=== PATIENT | female | born 1960 | race Caucasian/White ===

== ENCOUNTER 2020-07-25 18:34 | Emergency (ER) | payer OTHER, SELFPAY ==
[2020-07-25 18:42] VITALS: BP 153/64; PULSE 88; RESP 18; TEMP 37.6; O2SAT 98
[2020-07-25 18:47] VITALS: BP 144/79; BP 153/64; PULSE 90; PULSE 94; TEMP 37.6; O2SAT 100; O2SAT 98; BMI 32.4
--- NOTE | 2020-07-25 20:12 | ED.SEIZURE ---
HPI - Seizure General Chief Complaint: Seizure Stated Complaint: seizure Time Seen by Provider: 07/25/20 20:00 Source: patient, EMS and RN notes reviewed Mode of arrival: EMS Limitations: no limitations History of Present Illness HPI Narrative: 59 years old female known history of epilepsy taken Depakote/Tegretol for seizure, patient is a resident of a intermediate residential institution, presented with 3 mini seizure at the intermediate, staff noted that the patient closed her eyes and was not responding to the staff for short time, no reported postictal time, patient was sent for further evaluation. In the emergency room patient reported that she has been tired, the remember having seizure, patient declined any headache or fever or chest pain or abdominal pain. Patient is acting normally in the emergency department. Patient documented increased urinary frequency with no dysuria or fever or chills. Seizure History: Yes Place: intermediate Related Data Previous Rx's Medication Instructions Recorded levofloxacin 250 mg PO DAILY #7 tab 07/25/20 Allergies Allergy/AdvReac Type Severity Reaction Status Date / Time Penicillins Allergy Unknown Verified 07/25/20 19:53 Review of Systems Review of Systems: All other systems are reviewed and are negative Constitutional: Reports as per HPI and Reports no additional constitutional complaints Eyes: Reports as per HPI and Reports no additional eye complaints Reports system reviewed and no additional complaints, except as documented Cardiovascular: Reports as per HPI and Reports no additional cardiovascular complaints Respiratory: Reports as per HPI and Reports no additional respiratory complaints Gastrointestinal: Reports as per HPI and Reports no additional gastrointestinal complaints Genitourinary: Reports no additional female genitourinary complaints Musculoskeletal: Reports no additional musculoskeletal complaints Skin/Breast: Reports system reviewed and no additional complaints, except as docu Psychiatric: Reports no additional psychiatric complaints Endocrine: Reports no additional endocrine complaints Hematologic/Lymphatic: Reports no additional hematologic/lymphatic complaints Allergic/Immunologic: Reports no additional allergic/immunologic complaints Reports system reviewed and no additional complaints, except as documented and Reports Abnormal speech present [facility] Past Medical History Medical History Epilepsy HTN (hypertension) Schizoaffective disorder, depressive type Social History Social History Alcohol intake: never Smoking Status: Never smoker Use of substances other than those prescribed or required for medical reasons: No Advance Directives: No Advance Directives Information Provided: Yes Patient : No Physical Exam Vital Signs: Vital Signs: Last Vital Signs Temp 99.4 F 07/25/20 21:08 Pulse 83 07/25/20 21:08 Resp 18 07/25/20 21:08 BP 133/55 L 07/25/20 21:08 Pulse Ox 100 07/25/20 21:08 Body Mass Index 32.4 Vital signs have been reviewed as appeared to be correct. Blood pressure normal. Heart rate normal. Respiration rate normal. Temperature normal. Oxygen saturation normal. Appearance: Alert. Oriented X3. No acute distress. Head: Normal external exam. Normocephalic. Atraumatic. No Mukherjee signs noted. No raccoon eyes noted Eyes: PERRLA. EOMI. Conjunctiva and sclera normal. Eyelids normal. ENT: TM's Normal. Pharynx normal. Uvula midline. Moist mucous membranes. No trismus noted. No drooling noted. No muffled voice noted. Neck: Normal inspection. Neck supple. FROM. No adenopathy. Thyroid Normal. No meningeal signs. No neck mass noted. CVS: Normal heart rate and rhythm. Heart sound normal. No murmurs noted. Pulses normal throughout. Respiratory: No respiratory distress. Painless inspiration. Breath sounds normal. No wheezes/rales/rhonchi noted. Chest nontender. No accessory muscle usage noted or decreased air movement noted. Abdomen: Soft and nontender. Bowel sounds normal in all 4 quadrants. No distention noted. No organomegaly noted. No visible injury noted. Back: No CVA tenderness. Full range of motion noted. Skin: Skin warm and dry. Normal skin color. Normal skin turgor. No rashes/lesions/lacerations noted. Extremities: No lower extremity edema. Extremities exhibit normal range of motion. Extremities nontender. Neuro: Oriented X 3. No motor deficit. No sensory deficit. Reflexes normal. Course Course Course Narrative: Assessment and plan. 59 years old female came in after witnesses having seizure, patient was observed in the emergency department for couple hours no seizure activity, labs are unremarkable except for low level of Tegretol, patient was loaded with 800 mg p.o. patient to go back to the intermediate resume her medication. Patient reportedly had urinary frequency with +3 leuk esterase in the UA will treat with Ceftin. MDM - Seizure Lab Data Attestation: I reviewed the patient's lab results. Result diagrams: 07/25/20 20:18 07/25/20 20:18 Labs: Lab Results 07/25/20 07/25/20 07/25/20 Range/Units 20:18 20:18 20:18 WBC 11.4 H (4.8-10.8) X10*3/uL RBC 3.89 L (4.20-5.50) X10*6/uL Hgb 12.3 (12.0-16.0) g/dl Hct 37.4 (37-47) % MCV 96.1 (80-98) fL MCH 31.6 (27.0-33.0) pg MCHC 32.9 (31.0-35.0) g/dl RDW 12.6 (11.0-16.0) % Plt Count 221 (160-400) X10*3/uL MPV 10.7 (9.4-12.3) fL Immature Gran % (Auto) 0.3 (0.0-0.4) % Neut % (Auto) 71.8 (45-73) % Lymph % (Auto) 20.5 (20-40) % [place] % (Auto) 6.5 (2-11) % Eos % (Auto) 0.7 (0-4) % Baso % (Auto) 0.2 (0-2) % Lymph # (Auto) 2.3 (1.2-4.9) X10*3/uL [place] # (Auto) 0.7 (0.1-1.2) X10*3/uL Eos # (Auto) 0.1 (0.0-0.4) X10*3/uL Baso # (Auto) 0.0 (0.0-0.2) X10*3/uL Abs Immat Gran (auto) 0.03 (0.00-0.03) X10*3/uL Absolute Neuts (auto) 8.2 (2.0-8.3) X10*3/uL Absolute Nucleated RBC 0.000 (0.0-0.012) X10*3/uL Nucleated RBC % (auto) 0.0 (0.0-0.2) /100WBC Sodium 140 (135-145) mmol/L Potassium 3.8 (3.3-5.1) mmol/L Chloride 108 (96-108) mmol/L Carbon Dioxide 20 L (22-29) mmol/L Anion Gap 16 (12-20) BUN 13 (9-16) mg/dL Creatinine 0.74 (0.5-1.4) mg/dL Estim Creat Clear Calc 93.1 Estimated GFR > 60 Random Glucose 90 (60-115) mg/dL Calcium 9.5 (8.4-10.2) mg/dL Total Bilirubin 0.3 (0.0-1.0) mg/dL Direct Bilirubin < 0.2 (0.0-0.5) mg/dL AST 18 (5-31) U/L ALT 11 (0-31) U/L Alkaline Phosphatase 163 H (39-117) U/L Total Protein 8.2 H (6.5-8.0) g/dL Albumin 4.5 (3.5-5.0) g/dL Lipase 33 (8-78) U/L Urine Color Urine Appearance Urine pH (5.0-8.0) Ur Specific [place] (1.005-1.025) Urine Protein (NEG-TRACE) MG/DL Urine Glucose (UA) (NEG) MG/DL Urine Ketones (NEG) MG/DL Urine Blood (NEG) Urine Nitrite (NEG) Ur Leukocyte Esterase (NEG) Urine RBC (0) /HPF Urine WBC (0-4) /HPF Ur Squamous Epith Cells /LPF Urine Bacteria /LPF Valproic Acid 98.9 (50.0-100.0) mcg/mL Carbamazepine < 2.0 L* (5.0-12.0) mcg/mL /18/ Range/Units 20:18 WBC (4.8-10.8) X10*3/uL RBC (4.20-5.50) X10*6/uL Hgb (12.0-16.0) g/dl Hct (37-47) % MCV (80-98) fL MCH (27.0-33.0) pg MCHC (31.0-35.0) g/dl RDW (11.0-16.0) % Plt Count (160-400) X10*3/uL MPV (9.4-12.3) fL Immature Gran % (Auto) (0.0-0.4) % Neut % (Auto) (45-73) % Lymph % (Auto) (20-40) % [place] % (Auto) (2-11) % Eos % (Auto) (0-4) % Baso % (Auto) (0-2) % Lymph # (Auto) (1.2-4.9) X10*3/uL [place] # (Auto) (0.1-1.2) X10*3/uL Eos # (Auto) (0.0-0.4) X10*3/uL Baso # (Auto) (0.0-0.2) X10*3/uL Abs Immat Gran (auto) (0.00-0.03) X10*3/uL Absolute Neuts (auto) (2.0-8.3) X10*3/uL Absolute Nucleated RBC (0.0-0.012) X10*3/uL Nucleated RBC % (auto) (0.0-0.2) /100WBC Sodium (135-145) mmol/L Potassium (3.3-5.1) mmol/L Chloride (96-108) mmol/L Carbon Dioxide (22-29) mmol/L Anion Gap (12-20) BUN (9-16) mg/dL Creatinine (0.5-1.4) mg/dL Estim Creat Clear Calc Estimated GFR Random Glucose (60-115) mg/dL Calcium (8.4-10.2) mg/dL Total Bilirubin (0.0-1.0) mg/dL Direct Bilirubin (0.0-0.5) mg/dL AST (5-31) U/L ALT (0-31) U/L Alkaline Phosphatase (39-117) U/L Total Protein (6.5-8.0) g/dL Albumin (3.5-5.0) g/dL Lipase (8-78) U/L Urine Color YELLOW Urine Appearance CLEAR Urine pH 7.0 (5.0-8.0) Ur Specific [place] 1.015 (1.005-1.025) Urine Protein NEG (NEG-TRACE) MG/DL Urine Glucose (UA) NEG (NEG) MG/DL Urine Ketones NEG (NEG) MG/DL Urine Blood TRACE (NEG) Urine Nitrite NEG (NEG) Ur Leukocyte Esterase 3+ H (NEG) Urine RBC 0-2 (0) /HPF Urine WBC 1-4 (0-4) /HPF Ur Squamous Epith Cells TRACE /LPF Urine Bacteria 1+ /LPF Valproic Acid (50.0-100.0) mcg/mL Carbamazepine (5.0-12.0) mcg/mL Discharge Plan Discharge Clinical Impression: Epileptic seizure Qualifiers: Epilepsy type: unspecified Intractability: not intractable Status epilepticus: without status epilepticus Qualified Code(s): G40.909 - Epilepsy, unspecified, not intractable, without status epilepticus Urinary tract infection Qualifiers: Urinary tract infection type: acute cystitis Hematuria presence: without hematuria Qualified Code(s): N30.00 - Acute cystitis without hematuria Patient Disposition: Home, Self-Care Instructions: Urinary Tract Infection in Women (ED) Additional Instructions: Resume all your medication as normal. Prescriptions: New levofloxacin 250 mg tablet 250 mg PO DAILY Qty: 7 RF: 0 Referrals: Physician,Unknown [Primary Care Provider] - 2 days
[2020-07-25 20:27] LABS: MANUAL DIFF FLAG NO
[2020-07-25 20:29] LABS: Glucose Urine UA NEG (NEG); Leukocyte Esterase Urine 3+ (NEG); Nitrite Urine NEG (NEG); Specific Gravity - Urine 1.015 (1.005-1.025); Urine Blood TRACE (NEG); Urine Ketones NEG (NEG); Urine Protein NEG (NEG-TRACE)
[2020-07-25 20:32] LABS: Appearance Urine CLEAR; Color Urine YELLOW
[2020-07-25 20:39] LABS: Basophils Percent Auto 0.2 % (0-2); Eosinophils Absolute Auto 0.1 X10*3/uL (0.0-0.4); Eosinophils Percent Auto 0.7 % (0-4); Hematocrit 37.4 % (37-47); Hemoglobin 12.3 g/dl (12.0-16.0); Imm Gran Abs Auto 0.03 X10*3/uL (0.00-0.03); Imm Gran Pct Auto 0.3 % (0.0-0.4); Lymphocytes Absolute Auto 2.3 X10*3/uL (1.2-4.9); Lymphocytes Percent Auto 20.5 % (20-40); Mean Corpuscular HGB Conc 32.9 g/dl (31.0-35.0); Mean Corpuscular Hemoglobin 31.6 pg (27.0-33.0); Mean Corpuscular Volume 96.1 fL (80-98); Mean Platelet Volume 10.7 fL (9.4-12.3); Monocytes Absolute Auto 0.7 X10*3/uL (0.1-1.2); Monocytes Percent Auto 6.5 % (2-11); Neutrophils Absolute Auto 8.2 X10*3/uL (2.0-8.3); Neutrophils Percent Auto 71.8 % (45-73); Platelet Count 221 X10*3/uL (160-400); Red Blood Count 3.89 X10*6/uL (4.20-5.50); Red Cell Distribution Width 12.6 % (11.0-16.0); White Blood Count 11.4 X10*3/uL (4.8-10.8)
[2020-07-25 20:49] LABS: RBC Urine 0-2 /HPF (0); Squamous Epithelial Cell Urine TRACE /LPF
[2020-07-25 20:50] LABS: Alanine Aminotransferase 11 U/L (0-31); Albumin Level 4.5 g/dL (3.5-5.0); Alkaline Phosphatase 163 U/L (39-117); Anion Gap 16 (12-20); Aspartate Amino Transferase 18 U/L (5-31); Bacteria Urine 1+ /LPF; Bilirubin Direct < 0.2 mg/dL (0.0-0.5); Bilirubin Total 0.3 mg/dL (0.0-1.0); Blood Urea Nitrogen 13 mg/dL (9-16); Calcium 9.5 mg/dL (8.4-10.2); Carbon Dioxide 20 mmol/L (22-29); Chloride 108 mmol/L (96-108); Creatinine Clr Calc Pharmacy 93.1; Estimated Glomerular Filt Rate > 60; Glucose Random 90 mg/dL (60-115); Lipase 33 U/L (8-78); Potassium 3.8 mmol/L (3.3-5.1); Sodium 140 mmol/L (135-145); Total Protein 8.2 g/dL (6.5-8.0)
[2020-07-25 21:08] VITALS: BP 133/55; PULSE 83; RESP 18; TEMP 37.4; O2SAT 100
[2020-07-25 21:13] LABS: Carbamazepine Tegretol < 2.0 mcg/mL (5.0-12.0); Valproate 98.9 mcg/mL (50.0-100.0)
[2020-07-25 22:26] VITALS: BP 125/56; PULSE 79; RESP 18; TEMP 37.2; O2SAT 100
== END 2020-07-25 22:58 | disposition home or self-care (01) ==
PROVIDERS: Emergency Provider Emergency Medicine
DX: G40.909 Epilepsy, unspecified, not intractable, without status epilepticus (principal); N30.00 Acute cystitis without hematuria; I10 Essential (primary) hypertension; F25.0 Schizoaffective disorder, bipolar type
CPT/HCPCS: 36415; 80048; 80076; 80156; 80164; 81001; 83690; 85025; 99283; 99284

== ENCOUNTER 2020-08-24 21:12 | Emergency (ER) | payer OTHER, SELFPAY ==
[2020-08-24 21:17] VITALS: BP 134/70; PULSE 100
[2020-08-24 21:22] VITALS: BP 157/89; PULSE 113; RESP 18; TEMP 37.3; O2SAT 100; BMI 31.8
[2020-08-24 21:32] LABS: Glucose, Whole Blood 86 mg/dL (60-115)
[2020-08-24 21:38] LABS: MANUAL DIFF FLAG NO
[2020-08-24 21:40] LABS: Basophils Percent Auto 0.3 % (0-2); Eosinophils Absolute Auto 0.1 X10*3/uL (0.0-0.4); Eosinophils Percent Auto 1.2 % (0-4); Hematocrit 39.9 % (37-47); Hemoglobin 13.3 g/dl (12.0-16.0); Imm Gran Abs Auto 0.03 X10*3/uL (0.00-0.03); Imm Gran Pct Auto 0.3 % (0.0-0.4); Lymphocytes Absolute Auto 2.5 X10*3/uL (1.2-4.9); Lymphocytes Percent Auto 26.1 % (20-40); Mean Corpuscular HGB Conc 33.3 g/dl (31.0-35.0); Mean Corpuscular Hemoglobin 31.4 pg (27.0-33.0); Mean Corpuscular Volume 94.3 fL (80-98); Mean Platelet Volume 11.2 fL (9.4-12.3); Monocytes Absolute Auto 0.7 X10*3/uL (0.1-1.2); Monocytes Percent Auto 7.8 % (2-11); Neutrophils Absolute Auto 6.1 X10*3/uL (2.0-8.3); Neutrophils Percent Auto 64.3 % (45-73); Platelet Count 196 X10*3/uL (160-400); Red Blood Count 4.23 X10*6/uL (4.20-5.50); Red Cell Distribution Width 11.9 % (11.0-16.0); White Blood Count 9.5 X10*3/uL (4.8-10.8)
--- NOTE | 2020-08-24 22:02 | ED_ITS ---
HPI - Seizure General Chief Complaint: Seizure Stated Complaint: seizures Time Seen by Provider: 08/24/20 21:21 Source: patient and other Mode of arrival: EMS History of Present Illness HPI Narrative: 59-year-old female who is a poor historian and arrives via EMS after they were called by staff at the SNF. Staff reports increased seizure activity since discontinuation of seizure medication. No further information is available at this time and will evaluate for which anti seizure medication was discontinued and by whom. Seizure History: Yes Place: Home Related Data Previous Rx's Medication Instructions Recorded levofloxacin 250 mg PO DAILY #7 tab 07/25/20 cefdinir 300 mg PO BID 5 Days #10 cap 08/25/20 Allergies Allergy/AdvReac Type Severity Reaction Status Date / Time Penicillins Allergy Unknown Verified 07/25/20 19:53 Review of Systems Review of Systems: Yes Unobtainable due to mental status PMFSH Past Medical History Source: nursing notes reviewed Medical History Epilepsy HTN (hypertension) Schizoaffective disorder, depressive type Social History Social History Alcohol intake: never Patient Tobacco Use Status: Tobacco use Unknown Use of substances other than those prescribed or required for medical reasons: Unknown Any prior treatment program specific to substance use: No Advance Directives: No Advance Directives Information Provided: Yes Patient : No Physical Exam Vital Signs: Vital Signs: Last Vital Signs Temp 99.2 F 08/24/20 21: Pulse 93 08/25/20 00:00 Resp 18 08/25/20 00:00 BP 157/89 H 08/24/20 21:22 Pulse Ox 100 08/25/20 00:00 Body Mass Index 31.8 VITAL SIGNS: Reviewed. GENERAL: Well developed, well nourished, in no acute distress. HEAD: Normocephalic/atraumatic, EYES: PERRLA, EOMI EARS: Ext canals without abnormality OROPHARYNX: no oral lesions noted, posterior pharynx clear, and no intraoral injury noted NECK: Supple, no adenopathy LUNGS: Normal breath sounds. No adventitious sounds or accessory muscle use. SpO2<100> CARDIOVASCULAR: Regular rate and rhythm without noted murmurs, no JVD or lower extremity edema. ABDOMEN: Soft, non-tender, non-distended with bowel sounds. MUSCULOSKELETAL: No tenderness, deformities, or effusions noted on gross inspection. EXTREMITIES: No cyanosis, clubbing or edema. SKIN: Inspection of the skin reveals no rashes NEUROLOGIC: Alert, but appears somewhat postictal and oriented x 4. Strength and sensation to light touch were grossly intact x 4. Course Course Course Narrative: 59-year-old female with history and clinical presentation most consistent with seizure, will evaluate for etiologies of onset as well as obtaining collateral information. Review of all investigations only significant for evidence of UTI for which patient will have a prescription sent to the sniff to treat. Depakote levels are returned at 52.5 and patient was provided with 500 mg 1 time dose as recommended by [facility]. Otherwise, patient is stable for transfer back to the SNF with resumption of her epilepsy medication. Reevaluation(s) Reevaluation #1: I discussed the case with from [facility] who is on-call for Dr. Hull the patient's current neurologist. He recommends obtaining a Depakote level and giving the patient a 1 time Depakote 500 mg oral dose, and agrees with the current plan for transfer back to the facility as long as there are no acute findings. Time: 23:30 MDM - Seizure Lab Data Result diagrams: 08/24/20 21:35 08/24/20 22:48 Labs: Lab Results 08/24/20 08/24/20 08/24/20 Range/Units 21:24 21:35 22:47 WBC 9.5 (4.8-10.8) X10*3/uL RBC 4.23 (4.20-5.50) X10*6/uL Hgb 13.3 (12.0-16.0) g/dl Hct 39.9 (37-47) % MCV 94.3 (80-98) fL MCH 31.4 (27.0-33.0) pg MCHC 33.3 (31.0-35.0) g/dl RDW 11.9 (11.0-16.0) % Plt Count 196 (160-400) X10*3/uL MPV 11.2 (9.4-12.3) fL Immature Gran % (Auto) 0.3 (0.0-0.4) % Neut % (Auto) 64.3 (45-73) % Lymph % (Auto) 26.1 (20-40) % [place] % (Auto) 7.8 (2-11) % Eos % (Auto) 1.2 (0-4) % Baso % (Auto) 0.3 (0-2) % Lymph # (Auto) 2.5 (1.2-4.9) X10*3/uL [place] # (Auto) 0.7 (0.1-1.2) X10*3/uL Eos # (Auto) 0.1 (0.0-0.4) X10*3/uL Baso # (Auto) 0.0 (0.0-0.2) X10*3/uL Abs Immat Gran (auto) 0.03 (0.00-0.03) X10*3/uL Absolute Neuts (auto) 6.1 (2.0-8.3) X10*3/uL Absolute Nucleated RBC 0.000 (0.0-0.012) X10*3/uL Nucleated RBC % (auto) 0.0 (0.0-0.2) /100WBC Sodium (135-145) mmol/L Potassium (3.3-5.1) mmol/L Chloride (96-108) mmol/L Carbon Dioxide (22-29) mmol/L Anion Gap (12-20) BUN (9-16) mg/dL Creatinine (0.5-1.4) mg/dL Estim Creat Clear Calc Estimated GFR POC Glucose 86 (60-115) mg/dL Random Glucose (60-115) mg/dL Calcium (8.4-10.2) mg/dL Magnesium (1.6-2.6) mg/dL Total Bilirubin (0.0-1.0) mg/dL AST (5-31) U/L ALT (0-31) U/L Alkaline Phosphatase (39-117) U/L Total Protein (6.5-8.0) g/dL Albumin (3.5-5.0) g/dL Lipase (8-78) U/L Urine Color STRAW Urine Appearance CLEAR Urine pH 7.0 (5.0-8.0) Ur Specific [place] 1.010 (1.005-1.025) Urine Protein NEG (NEG-TRACE) MG/DL Urine Glucose (UA) NEG (NEG) MG/DL Urine Ketones NEG (NEG) MG/DL Urine Blood NEG (NEG) Urine Nitrite NEG (NEG) Ur Leukocyte Esterase 1+ H (NEG) Urine RBC 0-2 (0) /HPF Urine WBC 1-4 (0-4) /HPF Ur Squamous Epith Cells TRACE /LPF Urine Bacteria NONE /LPF Urine Opiates Screen (Not Detect) Ur Barbiturates Screen (Not Detect) Valproic Acid (50.0-100.0) mcg/mL Ur Phencyclidine Scrn (Not Detect) Ur Amphetamines Screen (Not Detect) U Benzodiazepines Scrn (Not Detect) Urine Cocaine Screen (Not Detect) U Marijuana (THC) Screen (Not Detect) Ethyl Alcohol mg/dL 08/24/20 08/24/20 08/24/20 Range/Units 22:47 22:48 22:48 WBC (4.8-10.8) X10*3/uL RBC (4.20-5.50) X10*6/uL Hgb (12.0-16.0) g/dl Hct (37-47) % MCV (80-98) fL MCH (27.0-33.0) pg MCHC (31.0-35.0) g/dl RDW (11.0-16.0) % Plt Count (160-400) X10*3/uL MPV (9.4-12.3) fL Immature Gran % (Auto) (0.0-0.4) % Neut % (Auto) (45-73) % Lymph % (Auto) (20-40) % [place] % (Auto) (2-11) % Eos % (Auto) (0-4) % Baso % (Auto) (0-2) % Lymph # (Auto) (1.2-4.9) X10*3/uL [place] # (Auto) (0.1-1.2) X10*3/uL Eos # (Auto) (0.0-0.4) X10*3/uL Baso # (Auto) (0.0-0.2) X10*3/uL Abs Immat Gran (auto) (0.00-0.03) X10*3/uL Absolute Neuts (auto) (2.0-8.3) X10*3/uL Absolute Nucleated RBC (0.0-0.012) X10*3/uL Nucleated RBC % (auto) (0.0-0.2) /100WBC Sodium 142 (135-145) mmol/L Potassium 4.3 (3.3-5.1) mmol/L Chloride 109 H (96-108) mmol/L Carbon Dioxide 21 L (22-29) mmol/L Anion Gap 16 (12-20) BUN 9 (9-16) mg/dL Creatinine 0.71 (0.5-1.4) mg/dL Estim Creat Clear Calc 86.3 Estimated GFR > 60 POC Glucose (60-115) mg/dL Random Glucose 106 (60-115) mg/dL Calcium 9.7 (8.4-10.2) mg/dL Magnesium 1.9 (1.6-2.6) mg/dL Total Bilirubin 0.3 (0.0-1.0) mg/dL AST 14 (5-31) U/L ALT 6 (0-31) U/L Alkaline Phosphatase 149 H (39-117) U/L Total Protein 8.1 H (6.5-8.0) g/dL Albumin 4.4 (3.5-5.0) g/dL Lipase 33 (8-78) U/L Urine Color Urine Appearance Urine pH (5.0-8.0) Ur Specific [place] (1.005-1.025) Urine Protein (NEG-TRACE) MG/DL Urine Glucose (UA) (NEG) MG/DL Urine Ketones (NEG) MG/DL Urine Blood (NEG) Urine Nitrite (NEG) Ur Leukocyte Esterase (NEG) Urine RBC (0) /HPF Urine WBC (0-4) /HPF Ur Squamous Epith Cells /LPF Urine Bacteria /LPF Urine Opiates Screen Not Detected (Not Detect) Ur Barbiturates Screen Not Detected (Not Detect) Valproic Acid (50.0-100.0) mcg/mL Ur Phencyclidine Scrn Not Detected (Not Detect) Ur Amphetamines Screen Not Detected (Not Detect) U Benzodiazepines Scrn Not Detected (Not Detect) Urine Cocaine Screen Not Detected (Not Detect) U Marijuana (THC) Screen Not Detected (Not Detect) Ethyl Alcohol < 10 mg/dL 08/24/20 Range/Units 22:48 WBC (4.8-10.8) X10*3/uL RBC (4.20-5.50) X10*6/uL Hgb (12.0-16.0) g/dl Hct (37-47) % MCV (80-98) fL MCH (27.0-33.0) pg MCHC (31.0-35.0) g/dl RDW (11.0-16.0) % Plt Count (160-400) X10*3/uL MPV (9.4-12.3) fL Immature Gran % (Auto) (0.0-0.4) % Neut % (Auto) (45-73) % Lymph % (Auto) (20-40) % [place] % (Auto) (2-11) % Eos % (Auto) (0-4) % Baso % (Auto) (0-2) % Lymph # (Auto) (1.2-4.9) X10*3/uL [place] # (Auto) (0.1-1.2) X10*3/uL Eos # (Auto) (0.0-0.4) X10*3/uL Baso # (Auto) (0.0-0.2) X10*3/uL Abs Immat Gran (auto) (0.00-0.03) X10*3/uL Absolute Neuts (auto) (2.0-8.3) X10*3/uL Absolute Nucleated RBC (0.0-0.012) X10*3/uL Nucleated RBC % (auto) (0.0-0.2) /100WBC Sodium (135-145) mmol/L Potassium (3.3-5.1) mmol/L Chloride (96-108) mmol/L Carbon Dioxide (22-29) mmol/L Anion Gap (12-20) BUN (9-16) mg/dL Creatinine (0.5-1.4) mg/dL Estim Creat Clear Calc Estimated GFR POC Glucose (60-115) mg/dL Random Glucose (60-115) mg/dL Calcium (8.4-10.2) mg/dL Magnesium (1.6-2.6) mg/dL Total Bilirubin (0.0-1.0) mg/dL AST (5-31) U/L ALT (0-31) U/L Alkaline Phosphatase (39-117) U/L Total Protein (6.5-8.0) g/dL Albumin (3.5-5.0) g/dL Lipase (8-78) U/L Urine Color Urine Appearance Urine pH (5.0-8.0) Ur Specific [place] (1.005-1.025) Urine Protein (NEG-TRACE) MG/DL Urine Glucose (UA) (NEG) MG/DL Urine Ketones (NEG) MG/DL Urine Blood (NEG) Urine Nitrite (NEG) Ur Leukocyte Esterase (NEG) Urine RBC (0) /HPF Urine WBC (0-4) /HPF Ur Squamous Epith Cells /LPF Urine Bacteria /LPF Urine Opiates Screen (Not Detect) Ur Barbiturates Screen (Not Detect) Valproic Acid 52.5 (50.0-100.0) mcg/mL Ur Phencyclidine Scrn (Not Detect) Ur Amphetamines Screen (Not Detect) U Benzodiazepines Scrn (Not Detect) Urine Cocaine Screen (Not Detect) U Marijuana (THC) Screen (Not Detect) Ethyl Alcohol mg/dL Discharge Plan Discharge Clinical Impression: Epileptic seizure, UTI (urinary tract infection) Patient Disposition: er [facility] Instructions: Epilepsy (ED), Urinary Tract Infection in Older Adults (ED) Additional Instructions: All medications should be resumed as per [facility]. Patient will be treated for a UTI. Return to the ER for acute worsening of symptoms. Prescriptions: New cefdinir 300 mg capsule 300 mg PO BID 5 Days Qty: 10 RF: 0 No Action levofloxacin 250 mg tablet 250 mg PO DAILY Qty: 7 RF: 0
--- NOTE | 2020-08-24 22:27 | PC.NURSE ---
CONTACT MADE TO JEFFRY RODRIGUEZ AT [facility]. PER JEFFRY, PT WAS TAKEN OFF CARBAMAZEPINE 200MG BY DR. MONTEIRO AT [facility] AFTER THE FACILITY HAVING DIFFICULTY FILL MEDS AND HAD MISSED MULITPLE DOSESCARBAMAZEPINE AND TOPRAMAX. PROVIDER IS BASED AT [address] [place] [address] AND CONTACT NUMBER IS [phone].
[2020-08-24 23:02] LABS: Glucose Urine UA NEG (NEG); Leukocyte Esterase Urine 1+ (NEG); Nitrite Urine NEG (NEG); UACC Culture Trigger YES; Urine Blood NEG (NEG); Urine Ketones NEG (NEG); Urine Protein NEG (NEG-TRACE)
[2020-08-24 23:03] LABS: Appearance Urine CLEAR; Color Urine STRAW
[2020-08-24 23:16] LABS: Ethanol < 10 mg/dL
[2020-08-24 23:18] LABS: RBC Urine 0-2 /HPF (0); Squamous Epithelial Cell Urine TRACE /LPF
[2020-08-24 23:20] LABS: Alanine Aminotransferase 6 U/L (0-31); Albumin Level 4.4 g/dL (3.5-5.0); Alkaline Phosphatase 149 U/L (39-117); Anion Gap 16 (12-20); Aspartate Amino Transferase 14 U/L (5-31); Bilirubin Total 0.3 mg/dL (0.0-1.0); Blood Urea Nitrogen 9 mg/dL (9-16); Calcium 9.7 mg/dL (8.4-10.2); Carbon Dioxide 21 mmol/L (22-29); Chloride 109 mmol/L (96-108); Creatinine Clr Calc Pharmacy 86.3; Estimated Glomerular Filt Rate > 60; Glucose Random 106 mg/dL (60-115); Lipase 33 U/L (8-78); Magnesium 1.9 mg/dL (1.6-2.6); Potassium 4.3 mmol/L (3.3-5.1); Sodium 142 mmol/L (135-145); Total Protein 8.1 g/dL (6.5-8.0)
[2020-08-24 23:27] LABS: Amphetamine Screen Urine Not Detected (Not Detect); Barbiturates, Urine Not Detected (Not Detect); Benzodiazepines Screen Urine Not Detected (Not Detect); Cannabinoid Screen Urine Not Detected (Not Detect); Cocaine Screen Urine Not Detected (Not Detect); Opiate Screen Urine Not Detected (Not Detect); Phencyclidine Screen Urine Not Detected (Not Detect)
[2020-08-25] VITALS: PULSE 93; RESP 18; O2SAT 100
--- NOTE | 2020-08-25 | PC.NURSE ---
cONTACT MADE TO [facility]- SPOKE TO SHILA THE PHARMACIST REGARDING ADMINSITRATION OF DEPAKOTE WHEN PATIENT TAKES CRUSHED PILLS
[2020-08-25 00:47] LABS: Valproate 52.5 mcg/mL (50.0-100.0)
--- NOTE | 2020-08-25 01:09 | PC.NURSE ---
awaiting rn sewer maintenance supervisor for meds,
--- NOTE | 2020-08-25 01:15 | PC.NURSE ---
Per , covering physician for dr quintana, d/c tigridol, but continue topramax and depikote
[2020-08-25] MEDS: Divalproex Sodium Sprinkles 125 MG CAP.DR.SPR 500 MG PO (01:38)
--- NOTE | 2020-08-25 01:56 | PC.NURSE ---
Md aware of daughter's report of dizziness post medication administration.
== END 2020-08-25 03:30 | disposition skilled nursing facility (03) ==
PROVIDERS: Emergency Provider Student in an Organized Health Care Education/Training Program
DX: G40.909 Epilepsy, unspecified, not intractable, without status epilepticus (principal); N39.0 Urinary tract infection, site not specified; I10 Essential (primary) hypertension
CPT/HCPCS: 36415; 80053; 80164; 80307; 81001; 81003; 82077; 82947; 83690; 83735; 85025; 87086; 99284; 99285

== ENCOUNTER 2020-08-26 17:29 | Emergency (ER) | payer OTHER, SELFPAY ==
--- NOTE | ~2020-08-26 | CT_ITS ---
EXAMINATION: CT HEAD WITHOUT CONTRAST CT CERVICAL SPINE WITHOUT CONTRAST CLINICAL INFORMATION: Fall. COMPARISON: None. TECHNIQUE: Imaging was performed from the skull base to vertex without intravenous administration of contrast. In addition, helical noncontrast CT imaging was acquired through the cervical spine and source images were reviewed along with axial reconstructions and sagittal and coronal MPRs. [This CT examination was performed using dose optimization techniques as appropriate, variously including the following: *Automated exposure control *Adjustment of mA and/or kV according to patient size (this includes techniques or standardized protocols for targeted exams where dose is matched to indication/reason for exam; i.e. extremities or head) *Use of iterative reconstruction technique] DLP: 1280 mGy-cm FINDINGS: HEAD: Small scalp hematoma in the right frontal region. There is no skull fracture. No intracranial mass, hemorrhage, or midline shift is visualized. There is generalized global volume loss. There is moderate prominence of the ventricles and the sulci . There is mild hypodensity of the periventricular white matter due to chronic small vessel ischemic disease. There are vascular calcifications of the internal carotid arteries bilaterally. No extra-axial collections are identified. The paranasal sinuses and mastoid air cells are well aerated. CERVICAL SPINE: There is no evidence of acute cervical spine fracture. Vertebral bodies remain normal in height. Cervical vertebrae have normal alignment. There is multilevel degenerative spondylosis of the cervical spine with disc height narrowing and endplate spurs. No pre- or paravertebral soft tissue abnormality is identified. Limited assessment of the lung apices is unremarkable. CT/CT cervical spine wo con IMPRESSION: 1. No acute intracranial pathology. 2. No CT evidence of acute cervical spine fracture or traumatic subluxation
[2020-08-26 17:36] VITALS: BP 127/80; PULSE 92; O2SAT 98
[2020-08-26 17:41] VITALS: BP 146/63; PULSE 81; RESP 18; TEMP 36.3; O2SAT 100; BMI 30.9
--- NOTE | 2020-08-26 18:06 | ED_ITS ---
HPI - Fall General Chief Complaint: Fall Stated Complaint: FALL IN BR, LUMP ON FOREHEAD Time Seen by Provider: 08/26/20 17:59 Source: EMS and RN notes reviewed Mode of arrival: EMS Limitations: altered mental status History of Present Illness HPI Narrative: Patient has schizophrenia was in the bathroom and fell has small bump on the forehead it was not available patient very agitated when arrived no other injuries patient is ambulatory otherwise Related Data Previous Rx's Medication Instructions Recorded levofloxacin 250 mg PO DAILY #7 tab 07/25/20 cefdinir 300 mg PO BID 5 Days #10 cap 08/25/20 Allergies Allergy/AdvReac Type Severity Reaction Status Date / Time Penicillins Allergy Unknown Verified 07/25/20 19:53 Review of Systems Review of Systems: Yes all other systems are reviewed and are negative [facility] Past Medical History Medical History Epilepsy HTN (hypertension) Schizoaffective disorder, depressive type Social History Social History Alcohol intake: never Patient Tobacco Use Status: Former Tobacco user Use of substances other than those prescribed or required for medical reasons: No Advance Directives: No Advance Directives Information Provided: Yes Physical Exam Vital Signs: Vital Signs: Last Vital Signs Temp 97.4 F 08/26/20 17:41 Pulse 82 08/26/20 19:36 Resp 18 08/26/20 19:36 BP 148/95 H 08/26/20 19:36 Pulse Ox 100 08/26/20 19:36 Body Mass Index 30.9 Appearance: Alert. And awake x2 and ambulatory. No acute distress. Eyes: PERRLA, No Nystagmus HEENT: Pharynx normal. Oral Mucosa moist , soft tissue swelling right forehead Neck: Normal inspection. Neck supple. CVS: Normal heart rate and rhythm. Pulses normal. Respiratory: No respiratory distress. Equal air entry bilateral, no wheezing/rales/rhonchi Abdomen: Soft and nontender. Bowel sounds are present, no mass palpable, no CVA tenderness Skin: Skin warm and dry. Normal skin color. Normal skin turgor. Extremities: No lower extremity edema. No calf tenderness Neuro: Oriented X 2. No motor deficit. No sensory deficit ambulating steady gait MDM - Fall MDM Narrative Medical decision making narrative: Patient's CT scan head and C-spine negative ambulating steady gait unstable mood will discharge patient senior care Lab Data Attestation: I reviewed the patient's lab results. Labs: Lab Results 08/26/20 Range/Units 19:18 Urine Color YELLOW Urine Appearance CLEAR Urine pH 6.5 (5.0-8.0) Ur Specific [place] 1.010 (1.005-1.025) Urine Protein NEG (NEG-TRACE) MG/DL Urine Glucose (UA) NEG (NEG) MG/DL Urine Ketones 5 (NEG) MG/DL Urine Blood NEG (NEG) Urine Nitrite NEG (NEG) Ur Leukocyte Esterase TRACE H (NEG) Urine RBC 0 (0) /HPF Urine WBC 0-2 (0-4) /HPF Ur Squamous Epith Cells TRACE /LPF Urine Bacteria NONE /LPF Discharge Plan Discharge Clinical Impression: Fall Patient Disposition: Xfer LT Instructions: Fall Prevention (ED) Additional Instructions: Your CT scan of the head and cervical spine is negative for any fracture urine is also negative for UTI Keep precautions while walking use walker follow-up with your therapist/PCP Prescriptions: No Action cefdinir 300 mg capsule 300 mg PO BID 5 Days Qty: 10 RF: 0 levofloxacin 250 mg tablet 250 mg PO DAILY Qty: 7 RF: 0 Interventions: ED Discharge Assessment Last Done: 08/26/20 22:49 Discharge Date/Time: 08/26/20 22:51
[2020-08-26 19:28] LABS: Glucose Urine UA NEG (NEG); Leukocyte Esterase Urine TRACE (NEG); Nitrite Urine NEG (NEG); PH 6.5 (5.0-8.0); UACC Culture Trigger YES; Urine Blood NEG (NEG); Urine Ketones 5 MG/DL (NEG); Urine Protein NEG (NEG-TRACE)
[2020-08-26 19:32] LABS: Appearance Urine CLEAR; Color Urine YELLOW
[2020-08-26 19:36] VITALS: BP 148/95; PULSE 82; RESP 18; O2SAT 100
[2020-08-26 19:51] LABS: RBC Urine 0 /HPF (0); Squamous Epithelial Cell Urine TRACE /LPF; WBC Urine 0-2 /HPF (0-4)
--- NOTE | 2020-08-26 20:26 | PC.NURSE ---
c-collar removed by provider. pt ambulatory to bathroom with steady gait x2. pt had 2 cups of juice. pt now sleeping on stretcher.
--- NOTE | 2020-08-26 21:11 | PC.NURSE ---
kelly lindsay called for report, awaiting ems transport back.
--- NOTE | 2020-08-26 21:22 | PC.NURSE ---
spoke with rn at [facility], she was concerned about pt's behavior. pt has been yelling out for god and mary ann. pt has been manic in the past when she has had a uti. rn is hoping that a few more doses of her current antibiotic will eliminate the behavior. rn will also contact the facility MD to request prn ativan.
== END 2020-08-26 22:51 ==
PROVIDERS: Emergency Provider Internal Medicine; PCP Internal Medicine
DX: Z04.3 Encounter for examination and observation following other accident (principal); I10 Essential (primary) hypertension; G40.909 Epilepsy, unspecified, not intractable, without status epilepticus; F25.1 Schizoaffective disorder, depressive type; Z91.81 History of falling
CPT/HCPCS: 70450; 72125; 81001; 81003; 99284; 99285

== ENCOUNTER 2020-08-27 10:25 | Inpatient (IN) | payer OTHER, SELFPAY ==
--- NOTE | ~2020-08-27 | XR_ITS ---
EXAMINATION: CHEST CLINICAL INFORMATION: Fall. COMPARISON: None TECHNIQUE: Chest one view. Left humerus 3 views. FINDINGS: Chest: The lungs are well-expanded and clear. The heart size and pulmonary vascularity is normal. No gross bony abnormality seen. Left humerus: There is displaced transverse comminuted fracture left humeral neck extending to the greater tuberosity. There is no dislocation. The AC joint is intact. The soft tissues are normal. XR/XR humerus LT IMPRESSION: Unremarkable chest exam. Continued displaced fracture left humeral neck extending to the greater tuberosity. No dislocation.
--- NOTE | ~2020-08-27 | XR_ITS ---
EXAMINATION: CHEST CLINICAL INFORMATION: Fall. COMPARISON: None TECHNIQUE: Chest one view. Left humerus 3 views. FINDINGS: Chest: The lungs are well-expanded and clear. The heart size and pulmonary vascularity is normal. No gross bony abnormality seen. Left humerus: There is displaced transverse comminuted fracture left humeral neck extending to the greater tuberosity. There is no dislocation. The AC joint is intact. The soft tissues are normal. XR/XR chest 1V IMPRESSION: Unremarkable chest exam. Continued displaced fracture left humeral neck extending to the greater tuberosity. No dislocation.
--- NOTE | ~2020-08-27 | CT_ITS ---
EXAMINATION: CT HEAD W/O IV CONTRAST CT CERVICAL SPINE W/O IV CONTRAST CLINICAL INFORMATION: Altered mental status after fall. COMPARISON: 08/26/2020 TECHNIQUE: Head - Contiguous axial imaging of the head was performed from the skull base to the vertex without the administration of intravenous contrast, and axial images are reconstructed at 2 mm and 5 mm slice thickness. Cervical spine - A volumetric, helical CT acquisition of the cervical spine was obtained without contrast; in addition to the standard set of axial images, multiplanar reformatted images were provided in the coronal and sagittal imaging planes. This CT examination was performed using dose optimization techniques as appropriate, variously including the following: *Automated exposure control *Adjustment of mA and/or kV according to patient size (this includes techniques or standardized protocols for targeted exams where dose is matched to indication/reason for exam; i.e. extremities or head) *Use of iterative reconstruction technique DLP: 1194 mGy-cm (total) FINDINGS: HEAD: No evidence of intracranial hemorrhage, major vascular territory infarction, focal mass effect or midline shift. Garcia to white matter differentiation is preserved. No extra-axial fluid collection. Mild atrophy of brain parenchyma with commensurate prominence of ventricles and sulci; no hydrocephalus. The calvarium is intact and the visualized paranasal sinuses, mastoid air cells and middle ear cavities are clear. The temporomandibular joints are unremarkable. The visualized orbits and globes are intact. Prior right ocular lens extraction/replacement. Again noted is the small right frontal scalp hematoma. CERVICAL SPINE: No acute abnormalities. The craniocervical junction is normal. The occipital condyles, dens and atlantodental articulation are intact. The vertebral body heights and alignment are maintained. No fractures in the anterior or posterior elements. No prevertebral soft tissue swelling. Chronic multilevel degenerative disc space narrowing, vertebral osteophyte formation and uncovertebral joint hypertrophy with varying degrees of multilevel bilateral neural foraminal stenosis. Also, there is multilevel mild central canal stenosis. No spinal hematoma or focal fluid collection in the visualized neck. The examined lung apices are clear. Thyroid gland is normal. CT/CT cervical spine wo con IMPRESSION: * Small right frontal scalp hematoma. No calvarial fracture. * No intracranial hemorrhage or other acute intracranial pathology compared to 08/26/2020. * No fracture or malalignment in the degenerated cervical spine.
--- NOTE | 2020-08-27 10:28 | ED_ITS ---
HPI - Altered Mental Status General Chief Complaint: Fall Stated Complaint: FALL W/AMS Time Seen by Provider: 08/27/20 10:26 Source: patient, EMS and old records reviewed Mode of arrival: EMS Limitations: altered mental status History of Present Illness HPI narrative: from facility hx of seizures on depakote and hx of schizophrenia seen yesterday for fall comes back after being found on the ground again patient tells me she remembers being dizzy then fell and was on the ground for 1 hour, c/o pain in L arm on depakote and topamax looks like they stopped carbamezapine on 08/22 complaint: confusion Onset (ago): hour(s) Timing confirmed by: caregiver Severity: moderate Consistency of symptoms: constant Context: history of similar presentation, trauma and seizure disorder Associated symptoms: other (L arm pain) Treatments prior to arrival: spinal immobilization Related Data Previous Rx's Medication Instructions Recorded levofloxacin 250 mg PO DAILY #7 tab 07/25/20 cefdinir 300 mg PO BID 5 Days #10 cap 08/25/20 Allergies Allergy/AdvReac Type Severity Reaction Status Date / Time Penicillins Allergy Unknown Verified 07/25/20 19:53 Review of Systems Review of Systems: ROS unable to be obtained due to altered mental status ON LICENSE OF [facility] Past Medical History Attestation statement: The following information was validated with the patient. Medical History Epilepsy HTN (hypertension) Schizoaffective disorder, depressive type Social History Social History Alcohol intake: never Patient Tobacco Use Status: Former Tobacco user Use of substances other than those prescribed or required for medical reasons: No Advance Directives: No Advance Directives Information Provided: No Physical Exam Vital Signs: Vital Signs: Last Vital Signs Temp 98.6 F 08/27/20 10:36 Pulse 85 08/27/20 10:36 Resp 14 08/27/20 10:36 BP 127/51 L 08/27/20 10:36 Pulse Ox 99 08/27/20 10:36 Body Mass Index 30.2 Appearance: Alert. Oriented X2. No acute distress. Eyes: Pupils equal, round and reactive to light. ENT: Pharynx normal. abrasions to forehead superficial Neck: Normal inspection. Neck supple. c collar in place CVS: Normal heart rate and rhythm. Pulses normal. Respiratory: No respiratory distress. Breath sounds normal. Abdomen: Soft and nontender. Skin: Skin warm and dry. Normal skin color. Normal skin turgor. Extremities: No lower extremity edema. No calf ttp no pain with ROM of bilat eral LE or RUPaulina has pain at L humerus and L shoulder NV intact Neuro: Oriented X 2. No motor deficit. No sensory deficit. Course Course Course Narrative: I believe given the abrasions which looks as if her face is scraping on the floor and left humerus fracture concerning that the patient is actually having breakthrough seizures will admit to the hospitalist for further workup and management of AEDs Procedures Orthopedic Splinting/Casting Injury #1: Side: left Upper Extremity Injury Location: upper arm Upper Extremity Immobilizer: sling/shoulder immobilizer MDM - Altered Mental Status MDM Narrative Medical decision making narrative: 59 yo female with hx of seizures on depakote schizophrenia was seen yesterday for falls had negative head and cervical spine CT at that time - comes in again c/o dizziness then was found confused on the floor by staff likely seizure given the history no GTC reported, she has abras ions on forehead and pain in L arm NV intact - at this time repeat CT head/cspine, labs, xrays of LUE - possible admission given repeat falls and concerns that she is having breakthrough seizure - 3rd visit this month. Lab Data Result diagrams: 08/27/20 11:14 08/27/20 11:14 Labs: Lab Results 08/27/20 08/27/20 08/27/20 Range/Units 11:07 11:14 11:14 WBC 9.9 (4.8-10.8) X10*3/uL RBC 4.26 (4.20-5.50) X10*6/uL Hgb 13.5 (12.0-16.0) g/dl Hct 40.4 (37-47) % MCV 94.8 (80-98) fL MCH 31.7 (27.0-33.0) pg MCHC 33.4 (31.0-35.0) g/dl RDW 12.1 (11.0-16.0) % Plt Count 193 (160-400) X10*3/uL MPV 10.8 (9.4-12.3) fL Immature Gran % (Auto) 0.3 (0.0-0.4) % Neut % (Auto) 81.9 H (45-73) % Lymph % (Auto) 11.8 L (20-40) % [place] % (Auto) 5.3 (2-11) % Eos % (Auto) 0.4 (0-4) % Baso % (Auto) 0.3 (0-2) % Lymph # (Auto) 1.2 (1.2-4.9) X10*3/uL [place] # (Auto) 0.5 (0.1-1.2) X10*3/uL Eos # (Auto) 0.0 (0.0-0.4) X10*3/uL Baso # (Auto) 0.0 (0.0-0.2) X10*3/uL Abs Immat Gran (auto) 0.03 (0.00-0.03) X10*3/uL Absolute Neuts (auto) 8.1 (2.0-8.3) X10*3/uL Absolute Nucleated RBC 0.000 (0.0-0.012) X10*3/uL Nucleated RBC % (auto) 0.0 (0.0-0.2) /100WBC PT (10.8-13.0) SEC INR (0.9-1.1) APTT (24.1-38.0) SEC Sodium 141 (135-145) mmol/L Potassium 3.9 (3.3-5.1) mmol/L Chloride 109 H (96-108) mmol/L Carbon Dioxide 20 L (22-29) mmol/L Anion Gap 16 (12-20) BUN 8 L (9-16) mg/dL Creatinine 0.75 (0.5-1.4) mg/dL Estim Creat Clear Calc 85.6 Estimated GFR > 60 Random Glucose 122 H (60-115) mg/dL Calcium 9.5 (8.4-10.2) mg/dL Magnesium 2.0 (1.6-2.6) mg/dL Total Bilirubin 0.2 (0.0-1.0) mg/dL Direct Bilirubin < 0.2 (0.0-0.5) mg/dL AST 15 (5-31) U/L ALT 8 (0-31) U/L Alkaline Phosphatase 142 H (39-117) U/L Total Creatine Kinase 312 H (26-140) U/L Troponin I High Sens (<3.5-17.0) ng/L Total Protein 8.1 H (6.5-8.0) g/dL Albumin 4.6 (3.5-5.0) g/dL Lipase 21 (8-78) U/L Valproic Acid 114.8 H* (50.0-100.0) mcg/mL COVID-19 (LEONIDAS) Negative (Negative) COVID-19 Clin Com See Note 08/27/20 08/27/20 Range/Units 11:14 11:21 WBC (4.8-10.8) X10*3/uL RBC (4.20-5.50) X10*6/uL Hgb (12.0-16.0) g/dl Hct (37-47) % MCV (80-98) fL MCH (27.0-33.0) pg MCHC (31.0-35.0) g/dl RDW (11.0-16.0) % Plt Count (160-400) X10*3/uL MPV (9.4-12.3) fL Immature Gran % (Auto) (0.0-0.4) % Neut % (Auto) (45-73) % Lymph % (Auto) (20-40) % [place] % (Auto) (2-11) % Eos % (Auto) (0-4) % Baso % (Auto) (0-2) % Lymph # (Auto) (1.2-4.9) X10*3/uL [place] # (Auto) (0.1-1.2) X10*3/uL Eos # (Auto) (0.0-0.4) X10*3/uL Baso # (Auto) (0.0-0.2) X10*3/uL Abs Immat Gran (auto) (0.00-0.03) X10*3/uL Absolute Neuts (auto) (2.0-8.3) X10*3/uL Absolute Nucleated RBC (0.0-0.012) X10*3/uL Nucleated RBC % (auto) (0.0-0.2) /100WBC PT 13.3 H (10.8-13.0) SEC INR 1.1 (0.9-1.1) APTT 35.3 (24.1-38.0) SEC Sodium (135-145) mmol/L Potassium (3.3-5.1) mmol/L Chloride (96-108) mmol/L Carbon Dioxide (22-29) mmol/L Anion Gap (12-20) BUN (9-16) mg/dL Creatinine (0.5-1.4) mg/dL Estim Creat Clear Calc Estimated GFR Random Glucose (60-115) mg/dL Calcium (8.4-10.2) mg/dL Magnesium (1.6-2.6) mg/dL Total Bilirubin (0.0-1.0) mg/dL Direct Bilirubin (0.0-0.5) mg/dL AST (5-31) U/L ALT (0-31) U/L Alkaline Phosphatase (39-117) U/L Total Creatine Kinase (26-140) U/L Troponin I High Sens < 3.5 (<3.5-17.0) ng/L Total Protein (6.5-8.0) g/dL Albumin (3.5-5.0) g/dL Lipase (8-78) U/L Valproic Acid (50.0-100.0) mcg/mL COVID-19 (LEONIDAS) (Negative) COVID-19 Clin Com ECG Data ECG #1: Attestation: I personally reviewed and interpreted this ECG as follows: ECG interpretation date: 08/27/20 ECG interpretation time: 10:51 Interpretation: Rate: 94 Rhythm: NSR [place]: normal Normal P waves. Normal PEMA. incomplete RBBB ST T wave : nonspecific, no ANDREA qTC: normal prior studies: no prior The study has been interpreted contemporaneously by me. . Discharge Plan Discharge Clinical Impression: Abrasion, Elevated antiepileptic drug level, Fracture, humerus, Seizure disorder Patient Disposition: Admitted As Inpatient
--- NOTE | 2020-08-27 10:34 | ECG_ITS ---
Test Reason : SEIZURE Blood Pressure : / mmHG Vent. Rate : 094 BPM Atrial Rate : 094 BPM P-R Int : 134 ms QRS Dur : 108 ms QT Int : 378 ms P-R-T Axes : 047 030 031 degrees QTc Int : 472 ms Normal sinus rhythm Incomplete right bundle branch block Borderline ECG No previous ECGs available Referred By: Kristina Bowen Electronically Signed By:ELVIA CUBA
[2020-08-27 10:36] VITALS: BP 122/60; BP 127/51; PULSE 85; PULSE 90; RESP 14; TEMP 37; O2SAT 98; O2SAT 99; BMI 30.2
[2020-08-27 11:19] LABS: MANUAL DIFF FLAG NO
[2020-08-27 11:21] LABS: Basophils Percent Auto 0.3 % (0-2); Eosinophils Percent Auto 0.4 % (0-4); Hematocrit 40.4 % (37-47); Hemoglobin 13.5 g/dl (12.0-16.0); Imm Gran Abs Auto 0.03 X10*3/uL (0.00-0.03); Imm Gran Pct Auto 0.3 % (0.0-0.4); Lymphocytes Absolute Auto 1.2 X10*3/uL (1.2-4.9); Lymphocytes Percent Auto 11.8 % (20-40); Mean Corpuscular HGB Conc 33.4 g/dl (31.0-35.0); Mean Corpuscular Hemoglobin 31.7 pg (27.0-33.0); Mean Corpuscular Volume 94.8 fL (80-98); Mean Platelet Volume 10.8 fL (9.4-12.3); Monocytes Absolute Auto 0.5 X10*3/uL (0.1-1.2); Monocytes Percent Auto 5.3 % (2-11); Neutrophils Absolute Auto 8.1 X10*3/uL (2.0-8.3); Neutrophils Percent Auto 81.9 % (45-73); Platelet Count 193 X10*3/uL (160-400); Red Blood Count 4.26 X10*6/uL (4.20-5.50); Red Cell Distribution Width 12.1 % (11.0-16.0); White Blood Count 9.9 X10*3/uL (4.8-10.8)
[2020-08-27 11:26] LABS: COVID-19 Test Negative (Negative)
[2020-08-27 11:38] LABS: INTERNATIONAL NORM RATIO 1.1 (0.9-1.1); Prothrombin Time 13.3 SEC (10.8-13.0)
[2020-08-27 11:41] LABS: Partial Thromboplastin Time 35.3 SEC (24.1-38.0)
[2020-08-27 11:42] LABS: Alanine Aminotransferase 8 U/L (0-31); Albumin Level 4.6 g/dL (3.5-5.0); Alkaline Phosphatase 142 U/L (39-117); Anion Gap 16 (12-20); Aspartate Amino Transferase 15 U/L (5-31); Bilirubin Direct < 0.2 mg/dL (0.0-0.5); Bilirubin Total 0.2 mg/dL (0.0-1.0); Blood Urea Nitrogen 8 mg/dL (9-16); Calcium 9.5 mg/dL (8.4-10.2); Carbon Dioxide 20 mmol/L (22-29); Chloride 109 mmol/L (96-108); Creatinine Clr Calc Pharmacy 85.6; Estimated Glomerular Filt Rate > 60; Glucose Random 122 mg/dL (60-115); Lipase 21 U/L (8-78); Potassium 3.9 mmol/L (3.3-5.1); Sodium 141 mmol/L (135-145); Total Protein 8.1 g/dL (6.5-8.0)
[2020-08-27 11:55] LABS: Valproate 114.8 mcg/mL (50.0-100.0)
[2020-08-27 11:57] LABS: Troponin-I High Sensitivity < 3.5 ng/L (<3.5-17.0)
--- NOTE | 2020-08-27 14:13 | P.HPHOSP_ITS ---
History of Present Illness Date of Service: 08/27/20 <GAYLA Phillips - Last Filed: 08/27/20 14:43> Chief Complaint: Unwitnessed fall <GAYLA Phillips - Last Filed: 08/27/20 14:43> This is a 59-year-old female with history of seizure disorder who was sent from [facility] after an unwitnessed fall. On August 22 she was seen by her primary neurologist at [facility] and at that time her carbamazepine was discontinued. She was seen in the ED August 24 for increasing seizure activity. At that time the covering provider called [facility] Neurology and they recommended to give the patient a 1 time oral dose of Depakote. She was then transferred back to her facility. She was brought back to the emergency department August 26 after unwitnessed fall. At that time patient seemed agitated. Her workup was otherwise unremarkable and she was again sent back to the facility. She returns yet again today after being found on the ground. Patient does not remember what happened but she thinks she may be having seizures. She complained of left arm pain and imaging revealed comminuted displaced fracture of the left humeral neck. Her left arm was placed in a sling. Valproic acid level today 114.8. Brain CT showed small right frontal scalp hematoma no intracranial hemorrhage or other acute pathology. C- spine showed no fracture or malalignment. Given multiple ED visits and recurrent falls there was concern that the patient may actually be having breakthrough seizures. Patient gives a somewhat limited history and says she does't know what happened today. Neurology notes from Dr. Hull at [facility] from August 22 2020 Anastasia was last seen in 2019, missed 2 follow up appointments. 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 She was on tegretol, I added topamax at last visit, palnned to dc tegretol. She's now on topamax 100 mg bid, tegretol 200 am 400 pm, not taken for 1 day due to no refills, and depakote 750mg bid. Staff has seen only episodes of eyes closed unresponsiveness, no motoric or other seizures. Impression: stable. Plan: The epilepstic seizures are under control, the PNES continue. Will DC tegretol, continue depakote 750 mg bid and topamax 100 mg bid. From general medical note: 08/25/2020 It is reported that seizure activity will appear every 2 to 3 days and will last for approximately 1 to 5 minutes where the patient will be reported to be spacing out, with her eyes closed, and will occasionally lose consciousness. There has been no reported tonic-clonic activity. Is reported that there is a postictal stage where the parent will be lethargic, confused, and will sleep for hours. 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 Patient was seen by Dr. Hull her neurologist who characterizes the more recent seizures as NEPS. <GAYLA Phillips - Last Filed: 08/27/20 14:43> Review of Systems Review of Systems: left arm pain <GAYLA Phillips - Last Filed: 08/27/20 14:43> Yes all other systems are reviewed and are negative <GAYLA Phillips - Last Filed: 08/27/20 14:43> Constitutional: Constitutional: Denies chills and Denies fever(s) <GAYLA Phillips - Last Filed: 08/27/20 14:43> Cardiovascular: Cardiovascular: Denies chest pain <GAYLA Phillips - Last Filed: 08/27/20 14:43> Respiratory: Respiratory: Denies cough <GAYLA Phillips - Last Filed: 08/27/20 14:43> Gastrointestinal: Gastrointestinal: Denies abdominal pain <GAYLA Phillips - Last Filed: 08/27/20 14:43> [facility] Medical History: Medical History (Updated 08/27/20 @ 14:32 by GAYLA Phillips) Epilepsy HLD (hyperlipidemia) HTN (hypertension) Schizoaffective disorder, depressive type <GAYLA Phillips Last Filed: 08/27/20 14:43> Functional capacity: independent ambulation <GAYLA Phillips - Last Filed: 08/27/20 14:43> Family history: reviewed and not pertinent <GAYLA Phillips Last Filed: 08/27/20 14:43> Surgical History: Surgical History History of hysterectomy <GAYLA Phillips - Last Filed: 08/27/20 14:43> Social History: Social History Alcohol intake: never Patient Tobacco Use Status: Former Tobacco user Use of substances other than those prescribed or required for medical reasons: No Advance Directives: No Advance Directives Information Provided: No <GAYLA Phillips - Last Filed: 08/27/20 14:43> Meds Allergies/Adverse reactions: Allergies Allergy/AdvReac Type Severity Reaction Status Date / Time Penicillins Allergy Unknown Verified 07/25/20 19:53 <GAYLA Phillips - Last Filed: 08/27/20 14:43> Home medications: Home Medications Medication Instructions Recorded Confirmed Last Taken Type acetaminophen 650 mg PO Q4H PRN 08/27/20 08/27/20 Unknown History alum-mag hydroxide-simeth [Mylanta] 30 ml PO Q4H PRN 08/27/20 08/27/20 Unknown History divalproex 750 mg PO BID 08/27/20 08/27/20 Unknown History ibuprofen 600 mg PO Q6H PRN 08/27/20 08/27/20 Unknown History lisinopril 1 tab PO DAILY 08/27/20 08/27/20 Unknown History loperamide 2 mg PO QID PRN 08/27/20 08/27/20 Unknown History lorazepam 0.25 mg PO BID 08/27/20 08/27/20 Unknown History magnesium hydroxide [Milk of 400 mg PO DAILY PRN 08/27/20 08/27/20 Unknown History Magnesia] nitrofurantoin monohyd/m-cryst 1 cap PO BID 08/27/20 08/27/20 08/27/20 08:00 History polyethylene glycol 3350 17 g PO DAILY 08/27/20 08/27/20 Unknown History rosuvastatin 20 mg PO DAILY 08/27/20 08/27/20 Unknown History topiramate 1 tab PO BID 08/27/20 08/27/20 Unknown History <GAYLA Phillips - Last Filed: 08/27/20 14:43> Physical Exam Vital Signs and Narrative: Vital Signs: Last Vital Signs Temp 98.6 F 08/27/20 10:36 Pulse 85 08/27/20 10:36 Resp 14 08/27/20 10:36 BP 127/51 L 08/27/20 10:36 Pulse Ox 99 08/27/20 10:36 Body Mass Index 30.2 <GAYLA Phillips - Last Filed: 08/27/20 14:43> Const: Nutritional Appearance: well nourished <GAYLA Phillips - Last Filed: 08/27/20 14:43> HENMT: Other: poor dentition <GAYLA Phillips - Last Filed: 08/27/20 14:43> Head: Yes normocephalic and Yes atraumatic <GAYLA Phillips - Last Filed: 08/27/20 14:43> Eyes: Sclerae: sclerae normal <GAYLA Phillips - Last Filed: 08/27/20 14:43> Chest: Chest palpation & inspection: normal inspection of the chest <GAYLA Phillips - Last Filed: 08/27/20 14:43> Resp: Effort & Inspection: normal respiratory effort and no respiratory d istress <GAYLA Phillips - Last Filed: 08/27/20 14:43> Cardio: Rate: regular rate <GAYLA Phillips - Last Filed: 08/27/20 14:43> Rhythm: regular rhythm <GAYLA Phillips - Last Filed: 08/27/20 14:43> GI: Palpation (GI): Soft to palpation and nontender <GAYLA Phillips - Last Filed: 08/27/20 14:43> Skin: Other: abrasions to forehead <GAYLA Phillips - Last Filed: 08/27/20 14:43> Neuro: Cranial nerves: Yes CN's II-XII intact bilaterally and Yes Bilaterally intact EOM present <GAYLA Phillips - Last Filed: 08/27/20 14:43> Extrem: Other: left arm in sling <GAYLA Phillips - Last Filed: 08/27/20 14:43> Results Labs CBC and Chem 7: : 06/20/21 11:14 08/27/20 11:14 <GAYLA Phillips - Last Filed: 08/27/20 14:43> Labs: Laboratory Results - last 24 hr 08/27/20 08/27/20 08/27/20 11:07 11:14 11:14 MCV 94.8 MCH 31.7 MCHC 33.4 RDW 12.1 Plt Count 193 MPV 10.8 Immature Gran % (Auto) 0.3 Neut % (Auto) 81.9 H Lymph % (Auto) 11.8 L [place] % (Auto) 5.3 Eos % (Auto) 0.4 Baso % (Auto) 0.3 Lymph # (Auto) 1.2 [place] # (Auto) 0.5 Eos # (Auto) 0.0 Baso # (Auto) 0.0 Abs Immat Gran (auto) 0.03 Absolute Neuts (auto) 8.1 Absolute Nucleated RBC 0.000 Nucleated RBC % (auto) 0.0 PT INR APTT Anion Gap 16 Estim Creat Clear Calc 85.6 Estimated GFR > 60 Random Glucose 122 H Calcium 9.5 Magnesium 2.0 Total Bilirubin 0.2 Direct Bilirubin < 0.2 AST 15 ALT 8 Alkaline Phosphatase 142 H Total Creatine Kinase 312 H Troponin I High Sens Total Protein 8.1 H Albumin 4.6 Lipase 21 Valproic Acid 114.8 H* COVID-19 (LEONIDAS) Negative COVID-19 Clin Com See Note 08/27/20 08/27/20 11:14 11:21 MCV MCH MCHC RDW Plt Count MPV Immature Gran % (Auto) Neut % (Auto) Lymph % (Auto) [place] % (Auto) Eos % (Auto) Baso % (Auto) Lymph # (Auto) [place] # (Auto) Eos # (Auto) Baso # (Auto) Abs Immat Gran (auto) Absolute Neuts (auto) Absolute Nucleated RBC Nucleated RBC % (auto) PT 13.3 H INR 1.1 APTT 35.3 Anion Gap Estim Creat Clear Calc Estimated GFR Random Glucose Calcium Magnesium Total Bilirubin Direct Bilirubin AST ALT Alkaline Phosphatase Total Creatine Kinase Troponin I High Sens < 3.5 Total Protein Albumin Lipase Valproic Acid COVID-19 (LEONIDAS) COVID-19 Clin Com <GAYLA Phillips - Last Filed: 08/27/20 14:43> Imaging Radiologist's Impressions: Impressions Cervical Spine CT 08/27/20 10:33 IMPRESSION: * Small right frontal scalp hematoma. No calvarial fracture. * No intracranial hemorrhage or other acute intracranial pathology compared to 08/26/2020. * No fracture or malalignment in the degenerated cervical spine. Head CT 08/27/20 10:33 IMPRESSION: * Small right frontal scalp hematoma. No calvarial fracture. * No intracranial hemorrhage or other acute intracranial pathology compared to 08/26/2020. * No fracture or malalignment in the degenerated cervical spine. Humerus X-Ray 08/27/20 10:33 IMPRESSION: Unremarkable chest exam. Continued displaced fracture left humeral neck extending to the greater tuberosity. No dislocation. Chest X-Ray 08/27/20 10:34 IMPRESSION: Unremarkable chest exam. Continued displaced fracture left humeral neck extending to the greater tuberosity. No dislocation. <GAYLA Phillips - Last Filed: 08/27/20 14:43> Assessment and Plan (1) Fracture, humerus: Qualifiers: Encounter type: initial encounter Fracture alignment: displaced Fracture morphology: other fracture Fracture type: closed Humerus Location: proximal Laterality: left Qualified Code(s): S42.292A - Other displaced fracture of upper end of left humerus, initial encounter for closed fracture <GAYLA Phillips - Last Filed: 08/27/20 14:43> Status: Acute <GAYLA Phillips - Last Filed: 08/27/20 14:43> (2) Seizure disorder: Status: Acute <GAYLA Phillips - Last Filed: 08/27/20 14:43> This is a 59-year-old female with a history of seizure disorder, hypertension, depression, schizophrenia, multiple recent visits to the ED who was brought in today after unwitnessed fall found to have left humeral fracture Unwitnessed fall Multiple recent ED visits for seizures and unwitnessed falls. Concern for breakthrough seizures. Patient has been diagnosed with both epileptic and nonepileptic seizures per notes from [facility] neurology Carbamazepine was discontinued August 22, has had multiple ED visits since that time -continue Depakote, Topamax -will resume carbamazepine 200 mg b.i.d. for now -consult to Neurology -seizure precautions Left humeral fracture Left arm in Sling -consult to Orthopedic surgery -pain control Med reconciliation not completed at this time DVT prophylaxis-Lovenox Code status-full code Attending-Dr. Pedroza <GAYLA Phillips - Last Filed: 08/27/20 14:43> Quality Stroke Does the patient have a stroke diagnosis?: No <GAYLA Phillips - Last Filed: 08/27/20 14:43> VTE Prior VTE?: No <GAYLA Phillips - Last Filed: 08/27/20 14:43> VTE Risk Level:: Medical - moderate - high <GAYLA Phillips - Last Filed: 08/27/20 14:43> VTE Device Contraindication: Treatment Not Indicated <GAYLA Phillips - Last Filed: 08/27/20 14:43> VTE Drug Contraindication: N/A - Med Ordered <GAYLA Phillips - Last Filed: 08/27/20 14:43>
[2020-08-27 14:57] VITALS: BP 157/65; PULSE 100; RESP 17; TEMP 37.6; O2SAT 98
--- NOTE | 2020-08-27 16:09 | PC.NURSE ---
pt resting quietly in bed. she is aware that the plan is to be admitted to the hospital. pt awaiting bed assignment.
--- NOTE | 2020-08-27 16:23 | PC.NURSE ---
Report given to Bo Waite. pt going to [facility] [place] [id number]
[2020-08-27 17:14] VITALS: BP 129/60; PULSE 96; RESP 18; TEMP 36.7; O2SAT 100
[2020-08-27] MEDS: 0.9 % Sodium Chloride Flush 3 ML SYRINGE IVFLUSH ×2 (17:26→20:49)
[2020-08-27 19:42] VITALS: BP 132/60; PULSE 113; RESP 18; TEMP 37.5; O2SAT 98
[2020-08-27] MEDS: Acetaminophen 325 MG TABLET 650 MG PO (20:48)
[2020-08-27] MEDS: carBAMazepine 200 MG TABLET PO (20:49)
[2020-08-27] MEDS: Enoxaparin Sodium 40 MG/0.4 ML SYRINGE SUBCUT (20:49)
[2020-08-28] VITALS: BP 133/62; PULSE 102; RESP 18; TEMP 36.9; O2SAT 98
--- NOTE | 2020-08-28 | EEG_ITS ---
This is a 16-channel EEG with an EKG lead. The patient is reported awake, confused, and restless during the tracing. Background EEG rhythm is low to medium amplitude, mixed theta, beta with no obvious asymmetry or paroxysmal tendency. Photic stimulation and hyperventilation were not performed. Cardiac lead did not reveal any significant abnormality. No definite sharp wave spikes or paroxysmal tendency noted. IMPRESSION: No significant abnormality noted on this EEG. MD LAVERNE Bucio/BENTLEY / [id number]
--- NOTE | 2020-08-28 00:08 | ECG_ITS ---
Test Reason : check QTC Blood Pressure : / mmHG Vent. Rate : 107 BPM Atrial Rate : 107 BPM P-R Int : 146 ms QRS Dur : 098 ms QT Int : 336 ms P-R-T Axes : 042 036 030 degrees QTc Int : 448 ms Sinus tachycardia Nonspecific ST abnormality Abnormal ECG When compared to the previous EKG of No significant changes seen Referred By: Samia Linares Electronically Signed By:Michael Mendoza
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
[2020-08-28] MEDS: Haloperidol Lactate 5 MG/ML VIAL 2.5 MG IVPUSH (00:48)
[2020-08-28 02:27] LABS: Glucose Urine UA NEG (NEG); Leukocyte Esterase Urine TRACE (NEG); Nitrite Urine NEG (NEG); UACC Culture Trigger YES; Urine Blood NEG (NEG); Urine Ketones NEG (NEG); Urine Protein NEG (NEG-TRACE)
[2020-08-28 02:28] LABS: Appearance Urine CLEAR; Color Urine YELLOW
[2020-08-28 02:33] LABS: Amorphous Sediment Urine 1+ /LPF; Mucus Urine TRACE /LPF; RBC Urine 0 /HPF (0); Squamous Epithelial Cell Urine 2+ /LPF; WBC Urine 0-2 /HPF (0-4)
[2020-08-28 03:57] VITALS: PULSE 98
[2020-08-28 06:15] LABS: Hematocrit 34.9 % (37-47); Hemoglobin 11.6 g/dl (12.0-16.0); Mean Corpuscular HGB Conc 33.2 g/dl (31.0-35.0); Mean Corpuscular Hemoglobin 31.1 pg (27.0-33.0); Mean Corpuscular Volume 93.6 fL (80-98); Mean Platelet Volume 11.4 fL (9.4-12.3); Platelet Count 196 X10*3/uL (160-400); Red Blood Count 3.73 X10*6/uL (4.20-5.50); Red Cell Distribution Width 12.1 % (11.0-16.0); White Blood Count 11.9 X10*3/uL (4.8-10.8)
[2020-08-28 06:37] LABS: Anion Gap 14 (12-20); Blood Urea Nitrogen 8 mg/dL (9-16); Carbon Dioxide 19 mmol/L (22-29); Chloride 110 mmol/L (96-108); Creatinine Clr Calc Pharmacy 98.8; Estimated Glomerular Filt Rate > 60; Glucose Random 119 mg/dL (60-115); Potassium 3.5 mmol/L (3.3-5.1); Sodium 139 mmol/L (135-145)
[2020-08-28 07:14] VITALS: BP 133/61; PULSE 104; RESP 18; TEMP 36.2; O2SAT 99
[2020-08-28] MEDS: carBAMazepine 200 MG TABLET PO (08:21)
[2020-08-28] MEDS: Acetaminophen 325 MG TABLET 650 MG PO (08:21)
[2020-08-28] MEDS: 0.9 % Sodium Chloride Flush 3 ML SYRINGE IVFLUSH ×2 (08:22→20:36)
--- NOTE | 2020-08-28 08:52 | P.CONOP_ITS ---
History of Present Illness HPI Consult date: 08/28/20 Consult reason: joint pain Chief complaint: FALL W/AMS Narrative: Ms. Boudreaux is a 59 yo female with a past medical history significant for seizures and schizophrenia who presented to the emergency room after susta ining a fall on 08/27/2020. X-rays were obtained in the ED and she was found to have a proximal humerus fracture. Orthopedics was then consulted for further evaluation and treatment. Review of Systems Review of Systems: Yes all other systems are reviewed and are negative PMFSH Past Medical History Medical History Epilepsy HLD (hyperlipidemia) HTN (hypertension) Schizoaffective disorder, depressive type Functional capacity: independent ambulation Family History Family history: reviewed and not pertinent Surgical History Surgical History History of hysterectomy Social History Social History Household Members: Other Do you presently have visiting nurse or other home services: No Alcohol intake: never Patient Tobacco Use Status: Former Tobacco user Use of substances other than those prescribed or required for medical reasons: Unknown Currently Displaying Signs/Symptoms of Drug Intoxication Withdrawal: No Have you been hit, kicked, punched, or otherwise hurt by someone within the past year? If so, by whom?: No Advance Directives: No Advance Directives Information Provided: No Do you have thoughts of harming others: None Do you have a plan to hurt others: No Plan Recently lost weight without trying: No Eating poorly because of decreased appetite: No Nutrition Risks: No Nutritional Risk Patient : No : No Poor oral hygiene: No Meds Allergies Allergy/AdvReac Type Severity Reaction Status Date / Time Penicillins Allergy Unknown Verified 07/25/20 19:53 Active Medications: Current Medications Generic Name Dose Route Start Last Admin Trade Name Freq PRN Reason Stop Dose Admin Acetaminophen 650 mg 08/27/20 17:15 08/28/20 08:21 Acetaminophen 325 Mg Tablet PO 650 mg Q6H PRN Administration Pain, Mild (Pain Scale 1-3) Carbamazepine 200 mg 08/27/20 21:00 08/28/20 08:21 Carbamazepine 200 Mg Tablet PO 200 mg BID RENETTA Administration Docusate Sodium 100 mg 08/27/20 17:15 Docusate Sodium 100 Mg Capsule PO DAILY PRN Constipation Enoxaparin Sodium 40 mg 08/27/20 20:00 08/27/20 20:49 Enoxaparin Sodium 40 Mg/0.4 Ml Syringe SUBCUT 40 mg Q24H RENETTA Administration Ondansetron HCl 4 mg 08/27/20 17:15 Ondansetron Hcl 4 Mg/2 Ml Vial IVPUSH Q8H PRN Nausea and Vomiting Oxycodone HCl 5 mg 08/27/20 17:15 Oxycodone Hcl Immed Release 5 Mg Tablet PO Q6H PRN Pain, Severe (Pain Scale 7-10) Sodium Chloride 3 ml 08/27/20 17:15 08/28/20 08:22 0.9 % Sodium Chloride Flush 3 Ml Syringe IVFLUSH 3 ml QSHIFT RENETTA Administration Home Medications Medication Instructions Recorded Confirmed Last Taken Type acetaminophen 650 mg PO Q4H PRN 08/27/20 08/27/20 Unknown History alum-mag hydroxide-simeth [Mylanta] 30 ml PO Q4H PRN 08/27/20 08/27/20 Unknown History divalproex 750 mg PO BID 08/27/20 08/27/20 Unknown History ibuprofen 600 mg PO Q6H PRN 08/27/20 08/27/20 Unknown History lisinopril 1 tab PO DAILY 08/27/20 08/27/20 Unknown History loperamide 2 mg PO QID PRN 08/27/20 08/27/20 Unknown History lorazepam 0.25 mg PO BID 08/27/20 08/27/20 Unknown History magnesium hydroxide [Milk of 400 mg PO DAILY PRN 08/27/20 08/27/20 Unknown History Magnesia] nitrofurantoin monohyd/m-cryst 1 cap PO BID 08/27/20 08/27/20 08/27/20 08:00 History polyethylene glycol 3350 17 g PO DAILY 08/27/20 08/27/20 Unknown History rosuvastatin 20 mg PO DAILY 08/27/20 08/27/20 Unknown History topiramate 1 tab PO BID 08/27/20 08/27/20 Unknown History Physical Exam Vital Signs: Vital Signs: Last Vital Signs Temp 97.2 F 08/28/20 07:14 Pulse 104 H 08/28/20 07:14 Resp 18 08/28/20 07:14 BP 133/61 08/28/20 07:14 Pulse Ox 99 08/28/20 07:14 Body Mass Index 30.2 Const: General: cooperative, healthy appearing and no acute distress Resp: Effort & Inspection: normal respiratory effort and able to speak in complete sentences Cardio: Rate: regular rate Peripheral pulses: Peripheral pulses 2+ throughout GI: Palpation (GI): Soft to palpation Skin: Lesions: no lesions Rashes: no rashes Extrem: Other: Left shoulder no ecchymosis, redness, edema. Patient is able to demonstrate full finger flexion and extension, abduction, adduction, and finger cross. She is able to demonstrate a thumbs up. Sensation intact. Radial pulse intact. Results Labs Result Diagrams: 08/28/20 05:45 08/28/20 05:45 Labs: Abnormal lab results 08/27/20 08/27/20 08/27/20 Range/Units 11:14 11:14 11:14 WBC (4.8-10.8) X10*3/uL RBC (4.20-5.50) X10*6/uL Hgb (12.0-16.0) g/dl Hct (37-47) % Neut % (Auto) 81.9 H (45-73) % Lymph % (Auto) 11.8 L (20-40) % PT 13.3 H (10.8-13.0) SEC Chloride 109 H (96-108) mmol/L Carbon Dioxide 20 L (22-29) mmol/L BUN 8 L (9-16) mg/dL Random Glucose 122 H (60-115) mg/dL Alkaline Phosphatase 142 H (39-117) U/L Total Creatine Kinase 312 H (26-140) U/L Total Protein 8.1 H (6.5-8.0) g/dL Ur Leukocyte Esterase (NEG) Valproic Acid 114.8 H* (50.0-100.0) mcg/mL 08/28/20 08/28/20 08/28/20 Range/Units 02:00 05:45 05:45 WBC 11.9 H (4.8-10.8) X10*3/uL RBC 3.73 L (4.20-5.50) X10*6/uL Hgb 11.6 L (12.0-16.0) g/dl Hct 34.9 L (37-47) % Neut % (Auto) (45-73) % Lymph % (Auto) (20-40) % PT (10.8-13.0) SEC Chloride 110 H (96-108) mmol/L Carbon Dioxide 19 L (22-29) mmol/L BUN 8 L (9-16) mg/dL Random Glucose 119 H (60-115) mg/dL Alkaline Phosphatase (39-117) U/L Total Creatine Kinase (26-140) U/L Total Protein (6.5-8.0) g/dL Ur Leukocyte Esterase TRACE H (NEG) Valproic Acid (50.0-100.0) mcg/mL H & H 08/27/20 08/28/20 Range/Units 11:14 05:45 Hgb 13.5 11.6 L (12.0-16.0) g/dl Hct 40.4 34.9 L (37-47) % Coagulation 08/27/20 Range/Units 11:14 INR 1.1 (0.9-1.1) All other labs normal. Assessment and Plan (1) Fracture, humerus: Qualifiers: Encounter type: initial encounter Fracture alignment: displaced Fracture morphology: other fracture Fracture type: closed Humerus Location: proximal Laterality: left Qualified Code(s): S42.292A - Other displaced fracture of upper end of left humerus, initial encounter for closed fracture Status: Acute Ms. Boudreaux is a 59-year-old female who presents to the ED yesterday after sustaining a fall. X-rays obtained reveal a proximal humerus fracture. She was placed in a sling and orthopedics was then consulted for further evaluation and treatment. She does have a prior medical history significant for seizures and schizophrenia. She should remain in the sling at all times for comfort. She may come out of the sling to work on elbow, wrist and hand gentle range of motion. Left upper extremity nonweightbearing. She may follow-up with orthopedics outpatient. Procedures Date of Service Date of Service: 08/28/20
[2020-08-28] MEDS: LORazepam 2 MG/ML VIAL IM (09:23)
--- NOTE | 2020-08-28 09:37 | PC.NURSE ---
At approximately 0905 patient had seizure seen by jeannie whitfield, staff called to room, patient turned to her side, seizure lasted about 1 minute. MD at bedside, placed order for IV Ativan, IV infiltrated, given IM Ativan instead. New orders for IV Keppra placed, will continue to monitor.
--- NOTE | 2020-08-28 09:51 | MHC.CM.PN ---
CM met with Patient art bedside, who appeared to have some confusion/forgetfulness. CM attempted to reach Daughter/HCP/Bethany at [phone], but was unable to reach her. CM spoke with Lucille from [facility] at [phone] and the goal for dc is for Patient to return to [facility] if [facility]. CM has initiated and will follow for dc planning. PT eval will be helpful.PCP is Dr. Shira Elliott at [facility].
--- NOTE | 2020-08-28 10:28 | P.CNNE_ITS ---
History of Present Illness Data of Consult Service Date: 08/28/20 Primary Care Provider: Unknown Physician 59 years old woman with seizure disorder. She said that she was having seizures since she was a child. Details were unclear. She was following a neurologist in [facility] and apparently her Tegretol was recently stopped. After that she had a fall and a dose of valproic acid was given. Now she was brought back to emergency room after a fall. She was noted to have left humeral fracture. It was not clear if she had any convulsion or seizure-like episode or she just fell. She was not in any distress when I saw her. Review of Systems Review of Systems: Multiple recent falls [facility] Past Medical History Medical History Epilepsy HLD (hyperlipidemia) HTN (hypertension) Schizoaffective disorder, depressive type Functional capacity: independent ambulation Family History Family history: reviewed and not pertinent Surgical History Surgical History History of hysterectomy Social History Social History Household Members: Other Do you presently have visiting nurse or other home services: No Alcohol intake: never Patient Tobacco Use Status: Former Tobacco user service: No Current occupational status: disabled Meds Allergies Allergy/AdvReac Type Severity Reaction Status Date / Time Penicillins Allergy Unknown Verified 07/25/20 19:53 Active Medications: Current Medications Generic Name Dose Route Start Last Admin Trade Name Freq PRN Reason Stop Dose Admin Acetaminophen 650 mg 08/27/20 17:15 08/28/20 08:21 Acetaminophen 325 Mg Tablet PO 650 mg Q6H PRN Administration Pain, Mild (Pain Scale 1-3) Docusate Sodium 100 mg 08/27/20 17:15 Docusate Sodium 100 Mg Capsule PO DAILY PRN Constipation Enoxaparin Sodium 40 mg 08/27/20 20:00 08/27/20 20:49 Enoxaparin Sodium 40 Mg/0.4 Ml Syringe SUBCUT 40 mg Q24H RENETTA Administration Levetiracetam 500 mg in 100 mls @ 380.952 mls/hr 08/28/20 10:00 Keppra IV Q12H RENETTA Ondansetron HCl 4 mg 08/27/20 17:15 Ondansetron Hcl 4 Mg/2 Ml Vial IVPUSH Q8H PRN Nausea and Vomiting Oxycodone HCl 5 mg 08/27/20 17:15 Oxycodone Hcl Immed Release 5 Mg Tablet PO Q6H PRN Pain, Severe (Pain Scale 7-10) Sodium Chloride 3 ml 08/27/20 17:15 08/28/20 08:22 0.9 % Sodium Chloride Flush 3 Ml Syringe IVFLUSH 3 ml QSPRFT [facility] Administration Home Medications Medication Instructions Recorded Confirmed Last Taken Type acetaminophen 650 mg PO Q4H PRN 08/27/20 08/27/20 Unknown History alum-mag hydroxide-simeth [Mylanta] 30 ml PO Q4H PRN 08/27/20 08/27/20 Unknown History divalproex 750 mg PO BID 08/27/20 08/27/20 Unknown History ibuprofen 600 mg PO Q6H PRN 08/27/20 08/27/20 Unknown History lisinopril 1 tab PO DAILY 08/27/20 08/27/20 Unknown History loperamide 2 mg PO QID PRN 08/27/20 08/27/20 Unknown History lorazepam 0.25 mg PO BID 08/27/20 08/27/20 Unknown History magnesium hydroxide [Milk of 400 mg PO DAILY PRN 08/27/20 08/27/20 Unknown History Magnesia] nitrofurantoin monohyd/m-cryst 1 cap PO BID 08/27/20 08/27/20 08/27/20 08:00 History polyethylene glycol 3350 17 g PO DAILY 08/27/20 08/27/20 Unknown History rosuvastatin 20 mg PO DAILY 08/27/20 08/27/20 Unknown History topiramate 1 tab PO BID 08/27/20 08/27/20 Unknown History Physical Exam Vital Signs: Vital Signs: Last Vital Signs Temp 97.2 F 08/28/20 07:14 Pulse 104 H 08/28/20 07:14 Resp 18 08/28/20 07:14 BP 133/61 08/28/20 07:14 Pulse Ox 99 08/28/20 07:14 Body Mass Index 30.2 She was alert and awake with normal spontaneity of speech fluency comprehension and flat affect. She was following simple commands. She knew she was in hospital. There was no gaze deviation or eye jerking. Visual higgins seem to be full. Face seems symmetrical. There was mild bruises on her forehead. Left arm was in sling. She was able to use right arm freely but could not move left arm and minimally squeeze my fingers with left hand. Deep tendon reflexes were absent with withdrawing plantars. Results Labs CBC & Chem 7: 08/28/20 05:45 08/28/20 05:45 Labs: Short CBC 08/27/20 08/28/20 Range/Units 11:14 05:45 WBC 9.9 11.9 H (4.8-10.8) X10*3/uL Hgb 13.5 11.6 L (12.0-16.0) g/dl Hct 40.4 34.9 L (37-47) % Plt Count 193 196 (160-400) X10*3/uL BMP 08/27/20 08/28/20 11:14 05:45 Sodium 141 139 Potassium 3.9 3.5 Chloride 109 H 110 H Carbon Dioxide 20 L 19 L BUN 8 L 8 L Creatinine 0.75 0.65 Calcium 9.5 9.0 Cardiac Enzymes 08/27/20 Range/Units 11:14 Total Creatine Kinase 312 H (26-140) U/L Liver Function 08/27/20 Range/Units 11:14 Total Bilirubin 0.2 (0.0-1.0) mg/dL Direct Bilirubin < 0.2 (0.0-0.5) mg/dL AST 15 (5-31) U/L ALT 8 (0-31) U/L Alkaline Phosphatase 142 H (39-117) U/L Albumin 4.6 (3.5-5.0) g/dL Urine 08/28/20 Range/Units 02:00 Urine Color YELLOW Urine Appearance CLEAR Urine pH 7.0 (5.0-8.0) Ur Specific [place] 1.010 (1.005-1.025) Urine Protein NEG (NEG-TRACE) MG/DL Urine Glucose (UA) NEG (NEG) MG/DL Her head CT did not reveal any significant acute abnormality. Mild diffuse atrophy was noted noted. Assessment and Plan (1) Seizure disorder: Status: Acute 59 years old woman who probably has underlying neuropsychiatric illness with possibility of seizure disorder but details were unclear. She was following [facility]. Apparently her Tegretol was recently stopped suggesting that she either might not have seizures for a while or that diagnosis was in question. In any case she had a fall and was given Depakote. She was brought back to hospital after a fall. Her Depakote level was high, which by itself could make her fall. For now, I suggest continuing 500 mg Keppra twice a day and obtain an EEG. Unless she had a witnessed seizure or documented electrical seizure, I would avoid increasing the dose and recommend follow-up with her primary neurologist. Procedures Date of Service Date of Service: 08/28/20
[2020-08-28 12:00] VITALS: BP 135/79; PULSE 95; RESP 20; TEMP 36.3; O2SAT 99
--- NOTE | 2020-08-28 14:45 | P.PNIM_ITS ---
Subjective Subjective Date of Service: 08/28/20 Interval History: the patient was seen and evaluated this morning Laying in bed, said she could not recall anything from last night including being aggressive Broke into a seizure that lasted for almost a minute, responded to lorazepam Denies any fever, chills or shortness of breath No reported other overnight events. Systemic review: No fever, chills but cannot remember much about last night No chest pain, palpitation No shortness of breath or coughing No abdominal pain, nausea or vomiting No urinary symptoms No any rash or wounds Physical Exam Vital Signs: Vital Signs: Last Vital Signs Temp 97.4 F 08/28/20 12:00 Pulse 95 08/28/20 12:00 Resp 20 08/28/20 12:00 BP 135/79 08/28/20 12:00 Pulse Ox 99 08/28/20 12:00 Body Mass Index 30.2 Const: Other: Constitutional : Alert, mildly disoriented about time and events Neck : Normal inspection, Supple Cardiovascular : RRR, S1 S2, no lower extremity edema Respiratory : Fair bilateral air entry, no crackles, wheezes or rhonchi Gastrointestinal: soft, lax, Normal bowel sounds, Non tender Skin : Warm/Dry, No rash Neurological : Alert & oriented to self, No focal deficit Objective Data Current Medications Generic Name Dose Route Start Last Admin Trade Name Jairoq PRN Reason Stop Dose Admin Acetaminophen 650 mg 08/27/20 17:15 08/28/20 08:21 Acetaminophen 325 Mg Tablet PO 650 mg Q6H PRN Administration Pain, Mild (Pain Scale 1-3) Docusate Sodium 100 mg 08/27/20 17:15 Docusate Sodium 100 Mg Capsule PO DAILY PRN Constipation Enoxaparin Sodium 40 mg 08/27/20 20:00 08/27/20 20:49 Enoxaparin Sodium 40 Mg/0.4 Ml Syringe SUBCUT 40 mg Q24H RENETTA Administration Levetiracetam 500 mg in 100 mls @ 380.952 mls/hr 08/28/20 10:00 08/28/20 13:58 Keppra IV Not Given Q12H RENETTA Ondansetron HCl 4 mg 08/27/20 17:15 Ondansetron Hcl 4 Mg/2 Ml Vial IVPUSH Q8H PRN Nausea and Vomiting Oxycodone HCl 5 mg 08/27/20 17:15 Oxycodone Hcl Immed Release 5 Mg Tablet PO Q6H PRN Pain, Severe (Pain Scale 7-10) Sodium Chloride 3 ml 08/27/20 17:15 08/28/20 08:22 0.9 % Sodium Chloride Flush 3 Ml Syringe IVFLUSH 3 ml QSHIFT RENETTA Administration Labs CBC & Chem 7: 08/28/20 05:45 08/28/20 05:45 Labs: Laboratory Results - last 24 hr 08/28/20 08/28/20 08/28/20 02:00 05:45 05:45 WBC 11.9 H RBC 3.73 L Hgb 11.6 L Hct 34.9 L MCV 93.6 MCH 31.1 MCHC 33.2 RDW 12.1 Plt Count 196 MPV 11.4 Absolute Nucleated RBC 0.000 Nucleated RBC % (auto) 0.0 Sodium 139 Potassium 3.5 Chloride 110 H Carbon Dioxide 19 L Anion Gap 14 BUN 8 L Creatinine 0.65 Estim Creat Clear Calc 98.8 Estimated GFR > 60 Random Glucose 119 H Calcium 9.0 Urine Color YELLOW Urine Appearance CLEAR Urine pH 7.0 Ur Specific [place] 1.010 Urine Protein NEG Urine Glucose (UA) NEG Urine Ketones NEG Urine Blood NEG Urine Nitrite NEG Ur Leukocyte Esterase TRACE H Urine RBC 0 Urine WBC 0-2 Ur Squamous Epith Cells 2+ Amorphous Sediment 1+ Urine Bacteria NONE Urine Mucus TRACE Quality Stroke Does the patient have a stroke diagnosis?: No VTE Prior VTE?: No VTE Risk Level:: Medical - moderate - high VTE Device Contraindication: Treatment Not Indicated VTE Drug Contraindication: N/A - Med Ordered Assessment and Plan (1) Fracture, humerus: Status: Acute (2) Seizure disorder: Status: Acute Assessment and Plan: This is a 59-year-old female with a history of seizure disorder, hypertension, depression, schizophrenia, multiple recent visits to the ED who was brought in today after unwitnessed fall found to have left humeral fracture Breakthrough seizure Seizure disorder Patient has been diagnosed with both epileptic and nonepileptic seizures per notes from [facility] neurology Carbamazepine was discontinued August 22, has had multiple ED visits since that time continue Depakote, Topamax Discontinue carbamazepine 200 mg Start Keppra 500 b.i.d. Urology input appreciated, continue current medication and EEG seizure precautions Left humeral fracture Left arm in Sling Orthopedic input appreciated, to follow-up as outpatient on September 04 08:45 pain control Falls Recurrent, increased after discontinuing carbamazepine To do physical therapy evaluation physical therapy physical therapy DVT prophylaxis-Lovenox Code status-full code Attending-Dr. Pedroza
[2020-08-28 15:28] VITALS: BP 119/58; PULSE 95; RESP 18; TEMP 36.4; O2SAT 100
[2020-08-28] MEDS: Divalproex Sodium 250 MG TABLET.DR 750 MG PO ×2 (15:47→20:36)
[2020-08-28] MEDS: Topiramate 100 MG TABLET PO ×2 (15:47→20:36)
[2020-08-28 19:39] VITALS: BP 131/65; PULSE 108; RESP 20; TEMP 37.7; O2SAT 98
[2020-08-28] MEDS: LORazepam 0.5 MG TABLET 0.25 MG PO (20:35)
[2020-08-28] MEDS: Enoxaparin Sodium 40 MG/0.4 ML SYRINGE SUBCUT (20:35)
[2020-08-28] MEDS: levETIRAcetam 500 MG TABLET PO (20:36)
[2020-08-28] MEDS: Nitrofurantoin Monohyd/M-Cryst 100 MG CAPSULE PO (20:36)
[2020-08-29] VITALS (7 sets, daily range): BP systolic 106–138; BP diastolic 58–68; PULSE 89–113; RESP 18–20; TEMP 36.4–37; O2SAT 97–99
[2020-08-29 06:17] LABS: Hemoglobin 11.6 g/dl (12.0-16.0); Mean Corpuscular HGB Conc 33.1 g/dl (31.0-35.0); Mean Corpuscular Hemoglobin 31.5 pg (27.0-33.0); Mean Corpuscular Volume 95.1 fL (80-98); Mean Platelet Volume 11.3 fL (9.4-12.3); Platelet Count 192 X10*3/uL (160-400); Red Blood Count 3.68 X10*6/uL (4.20-5.50); White Blood Count 11.9 X10*3/uL (4.8-10.8)
[2020-08-29 06:44] LABS: Anion Gap 15 (12-20); Blood Urea Nitrogen 5 mg/dL (9-16); Calcium 8.8 mg/dL (8.4-10.2); Carbon Dioxide 21 mmol/L (22-29); Chloride 106 mmol/L (96-108); Creatinine Clr Calc Pharmacy 95.8; Estimated Glomerular Filt Rate > 60; Glucose Random 96 mg/dL (60-115); Potassium 3.8 mmol/L (3.3-5.1); Sodium 138 mmol/L (135-145)
[2020-08-29] MEDS: Divalproex Sodium 250 MG TABLET.DR 750 MG PO (09:58)
[2020-08-29] MEDS: levETIRAcetam 500 MG TABLET PO (09:59)
[2020-08-29] MEDS: lisinopriL 10 MG TABLET PO (09:59)
[2020-08-29] MEDS: LORazepam 0.5 MG TABLET 0.25 MG PO (10:00)
[2020-08-29] MEDS: 0.9 % Sodium Chloride Flush 3 ML SYRINGE IVFLUSH (10:01)
[2020-08-29] MEDS: polyethylene glycoL 3350 17 GM POWD.PACK PO (10:01)
[2020-08-29] MEDS: Nitrofurantoin Monohyd/M-Cryst 100 MG CAPSULE PO (11:52)
[2020-08-29] MEDS: Topiramate 100 MG TABLET PO (11:52)
--- NOTE | 2020-08-29 12:21 | PM.DS ---
DS: Providers Provider Date of Service: 08/29/20 Date of admission: 08/27/20 14:12 Primary care physician: Unknown Physician Consults: 08/27/20 17:15 Consult to Neurology Routine Consulting Provider: [facility] Reason for consultation: Seizures Has provider been notified: No Consult to Orthopedics Routine Consulting Provider: Ignacia Ribeiro Reason for consultation: Displaced left humeral neck fracture Has provider been notified: No DS: Diagnosis Discharge Diagnosis (1) Fracture, humerus: Status: Acute (2) Seizure disorder: Status: Acute DS: Medications Discharge Medications Home Medications: Home Medications Medication Instructions Recorded Confirmed acetaminophen 650 mg PO Q4H PRN 08/27/20 08/27/20 alum-mag hydroxide-simeth 30 ml PO Q4H PRN 08/27/20 08/27/20 divalproex 750 mg PO BID 08/27/20 08/27/20 ibuprofen 600 mg PO Q6H PRN 08/27/20 08/27/20 lisinopril 1 tab PO DAILY 08/27/20 08/27/20 loperamide 2 mg PO QID PRN 08/27/20 08/27/20 lorazepam 0.25 mg PO BID 08/27/20 08/27/20 magnesium hydroxide [Milk of 400 mg PO DAILY PRN 08/27/20 08/27/20 Magnesia] nitrofurantoin monohyd/m-cryst 1 cap PO BID 08/27/20 08/27/20 polyethylene glycol 3350 17 g PO DAILY 08/27/20 08/27/20 rosuvastatin 20 mg PO DAILY 08/27/20 08/27/20 topiramate 1 tab PO BID 08/27/20 08/27/20 Previous Rx's Medication Instructions Recorded levetiracetam 500 mg PO BID 30 Days #60 tab 08/29/20 DS: Summary Hospital Course Hospital Course: Admission note HPI This is a 59-year-old female with history of seizure disorder who was sent from [facility] after an unwitnessed fall. On August 22 she was seen by her primary neurologist at [facility] and at that time her carbamazepine was discontinued. She was seen in the ED August 24 for increasing seizure activity. At that time the covering provider called [facility] and they recommended to give the patient a 1 time oral dose of Depakote. She was then transferred back to her facility. She was brought back to the emergency department August 26 after unwitnessed fall. At that time patient seemed agitated. Her workup was otherwise unremarkable and she was again sent back to the facility. She returns yet again today after being found on the ground. Patient does not remember what happened but she thinks she may be having seizures. She complained of left arm pain and imaging revealed comminuted displaced fracture of the left humeral neck. Her left arm was placed in a sling. Valproic acid level today 114.8. Brain CT showed small right frontal scalp hematoma no intracranial hemorrhage or other acute pathology. C-spine showed no fracture or malalignment. Given multiple ED visits and recurrent falls there was concern that the patient may actually be having breakthrough seizures. Patient gives a somewhat limited history and says she does't know what happened today. Neurology notes from Dr. Hull at [facility] from August 22 2020 Anastasia was last seen in 2019, missed 2 follow up appointments. 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 She was on tegretol, I added topamax at last visit, palnned to dc tegretol. She's now on topamax 100 mg bid, tegretol 200 am 400 pm, not taken for 1 day due to no refills, and depakote 750mg bid. Staff has seen only episodes of eyes closed unresponsiveness, no motoric or other seizures. Hospital course The patient was admitted for reported Falls at the facility after discontinuing the carbamazepine. Thought to be secondary to breakthrough seizures as she had unwitnessed fall resulting in the left humeral fracture. Patient has been diagnosed with both epileptic and nonepileptic seizures per notes from [facility] neurology. Carbamazepine was discontinued August 22, has had multiple ED visits since that time is reported. Patient CT head was negative for any acute findings. She was resumed on the home does Depakote, Topamax. She had a breakthrough seizure while in the hospital controlled by Ativan. Loaded with Keppra as neurology evaluated the patient and EEG done the next morning showing no seizure activity. To be discharged on Keppra 500 b.i.d. all with the rest of her medications. To follow-up with her primary neurology team at [facility]. Left humeral fracture Left arm in Sling Orthopedic input appreciated, to follow-up as outpatient on September 04 08:45 pain control Recurrent, increased after discontinuing carbamazepine To do physical therapy evaluation physical therapy physical therapy Time Spent with Patient Time attestation: Total time spent providing and/or coordinating discharge services: Discharge coordination time: Greater than 30 minutes Quality: Stroke Does the patient have a stroke diagnosis?: No Physical Exam Vital Signs: Vital Signs: Last Vital Signs Temp 97.7 F 08/29/20 11:16 Pulse 101 H 08/29/20 11:16 Resp 18 08/29/20 11:16 BP 131/65 08/29/20 11:16 Pulse Ox 99 08/29/20 11:16 Body Mass Index 30.2 Const: Other: Constitutional : Alert, oriented to self and place Neck : Normal inspection, Supple Cardiovascular : RRR, S1 S2, no lower extremity edema Respiratory : Fair bilateral air entry, no crackles, wheezes or rhonchi Gastrointestinal: soft, lax, Normal bowel sounds, Non tender Skin : Warm/Dry, No rash Neurological : Alert & oriented to self and place, No focal deficit DS: Data Data Completed and Pending Labs on day of discharge: Laboratory Results - last 24 hr 08/29/20 08/29/20 05:36 05:36 WBC 11.9 H RBC 3.68 L Hgb 11.6 L Hct 35.0 L MCV 95.1 MCH 31.5 MCHC 33.1 RDW 12.0 Plt Count 192 MPV 11.3 Absolute Nucleated RBC 0.000 Nucleated RBC % (auto) 0.0 Sodium 138 Potassium 3.8 Chloride 106 Carbon Dioxide 21 L Anion Gap 15 BUN 5 L Creatinine 0.67 Estim Creat Clear Calc 95.8 Estimated GFR > 60 Random Glucose 96 Calcium 8.8 Discharge Plan Discharge Patient Disposition: Xfer SNF Discharge Diagnosis: Breakthrough seizure Referrals: Ignacia Ribeiro PA-C [Physician Assistant Activities Director] - 1 Week (09/04/20 at 8:45am ) Physician,Unknown [Primary Care Provider] - 1 Week Discharge Medications: New levetiracetam 500 mg Tablet 500 mg PO BID 30 Days Qty: 60 RF: 0 Continued acetaminophen 325 mg Tablet 650 mg PO Q4H PRN (Reason: Pain, Mild) RF: 0 divalproex 250 mg tablet,delayed release (DR/EC) 750 mg PO BID RF: 0 loperamide 2 mg Capsule 2 mg PO QID PRN (Reason: Loose Stool) RF: 0 polyethylene glycol 3350 17 gram Powder In Packet 17 g PO DAILY RF: 0 lorazepam 0.5 mg Tablet 0.25 mg PO BID RF: 0 magnesium hydroxide [Milk of Magnesia] 400 mg/5 mL Suspension 400 mg PO DAILY PRN (Reason: Constipation) RF: 0 lisinopril 10 mg tablet 1 tab PO DAILY RF: 0 alum-mag hydroxide-simeth 200-200-20 mg/5 mL Suspension 30 ml PO Q4H PRN (Reason: Abdominal Discomfort) RF: 0 ibuprofen 600 mg Tablet 600 mg PO Q6H PRN (Reason: Pain) RF: 0 topiramate 100 mg tablet 1 tab PO BID RF: 0 rosuvastatin 20 mg Tablet 20 mg PO DAILY RF: 0 nitrofurantoin monohyd/m-cryst 100 mg capsule 1 cap PO BID RF: 0 Discharge Orders: Discharge Order (Routine); Ordered 08/29/20 Ordered By: Lc Pedroza Diet: advance to usual diet Activity on Discharge: As tolerated Stand Alone Forms: Patient Portal Discharge page Care Plan Goals: Read below Health Concerns: Read below Plan of Treatment: Continue home medications start Keppra as prescribed Assessment: To follow-up with orthopedic clinic as scheduled on September 04 08:45
--- NOTE | 2020-08-29 13:05 | MHC.CM.PN ---
pt dcd today at 2:30 to [facility] via [facility]io pts dgter danny sherman notified of dc [phone] arrangemnts for readmisisonmade with [facility]
--- NOTE | 2020-08-29 13:27 | MHC.CM.PN ---
booked [facility] who said they cannot take pt to [facility] booked action
--- NOTE | 2020-08-29 14:52 | PC.NURSE ---
skin assessment completed today. Bruising to anterior forearm- healing. No other skin issues found.
== END 2020-08-29 14:52 | disposition skilled nursing facility (03) | DRG 53 ==
LOC: HO.ED 12:21 → HO.EDOVER 14:20 → HO.IMC 16:08
PROVIDERS: Admitting Provider Physician Assistant Medical; Emergency Provider Emergency Medicine; Visit Provider Student in an Organized Health Care Education/Training Program
DX: G40.909 Epilepsy, unspecified, not intractable, without status epilepticus (principal); F20.9 Schizophrenia, unspecified; E78.5 Hyperlipidemia, unspecified; S42.292A Other displaced fracture of upper end of left humerus, initial encounter for closed fracture; I10 Essential (primary) hypertension; Z87.891 Personal history of nicotine dependence; Z20.822 Contact with and (suspected) exposure to COVID-19; W18.30XA Fall on same level, unspecified, initial encounter; Y93.9 Activity, unspecified; Y92.129 Unspecified place in nursing home as the place of occurrence of the external cause; Y99.9 Unspecified external cause status; Z88.0 Allergy status to penicillin; Z79.1 Long term (current) use of non-steroidal anti-inflammatories (NSAID); Z79.899 Other long term (current) drug therapy
CPT/HCPCS: 36415; 70450; 71045; 72125; 73030; 73060; 80048; 80076; 80164; 81001; 81003; 82550; 83690; 83735; 84484; 85025; 85027; 85610; 85730; 87086; 87147; 87635; 93005; 95816; 97162; 99285; J1650; J2060

== ENCOUNTER 2020-09-05 07:30 | Outpatient (REF) | payer OTHER, SELFPAY ==
--- NOTE | ~2020-09-05 | XR_ITS ---
EXAMINATION: XR SHOULDER, LEFT CLINICAL INFORMATION: Evaluate fracture. COMPARISON: 08/27/2020 TECHNIQUE: Two views of the left shoulder. FINDINGS: Once again, comminuted fracture of the proximal humerus is seen. I feel we are starting to see some internal and external callus. The fracture fragments have not significantly changed in position. There remains migration of the proximal fracture fragment medially relative to the humeral head. 1.7 cm medial angulation at the fracture apex. XR/XR shoulder LT min 2V IMPRESSION: Once again, comminuted fracture of the surgical neck of the humerus into the humeral head is seen with distraction of the fracture fragments. No change in fracture fragment position. There is felt to be callus formation. Fracture lines are well visible still.
== END 2020-09-05 07:31 | disposition home or self-care (01) ==
LOC: HO.HOSX 07:30
PROVIDERS: Visit Provider Physician Assistant
DX: S42.202A Unspecified fracture of upper end of left humerus, initial encounter for closed fracture (principal)
CPT/HCPCS: 73030; 99202

== ENCOUNTER 2020-09-26 07:48 | Outpatient (REF) | payer OTHER, SELFPAY ==
--- NOTE | ~2020-09-26 | XR_ITS ---
EXAMINATION: XR SHOULDER, LEFT CLINICAL INFORMATION: Fracture left humerus COMPARISON: 09/05/2020 and 08/28/2019 TECHNIQUE: 2 views of the left shoulder. FINDINGS: There is improvement in alignment on provided images of the proximal left humeral fracture compared to previous study of September 05, 2020. There is some prominent lateral periosteal new bone formation with fracture line being a little less obvious. XR/XR shoulder LT min 2V IMPRESSION: Healing left proximal humeral comminuted fracture with apparent improvement in alignment with periosteal new bone formation.
== END 2020-09-26 07:49 | disposition home or self-care (01) ==
LOC: HO.HOSX 07:48
PROVIDERS: Visit Provider Physician Assistant
DX: S42.292D Other displaced fracture of upper end of left humerus, subsequent encounter for fracture with routine healing (principal); X58.XXXD Exposure to other specified factors, subsequent encounter
CPT/HCPCS: 73030; 99212

== ENCOUNTER 2020-11-10 07:45 | Outpatient (REF) | payer OTHER, SELFPAY ==
--- NOTE | ~2020-11-10 | XR_ITS ---
EXAMINATION: XR SHOULDER, LEFT CLINICAL INFORMATION: Left humeral fracture COMPARISON: September 26, 2020 and September 05, 2020 TECHNIQUE: 2 views of the left shoulder of the left shoulder. FINDINGS: There has been progression in healing of the proximal left humeral fracture. There is bony bridging present and fracture lines are not well evident. Callus formation is present. No dislocation is seen. No widening of the coracoclavicular space. XR/XR shoulder LT min 2V IMPRESSION: Continued healing with what appears be bony union of proximal left humeral fracture.
== END 2020-11-10 07:46 | disposition home or self-care (01) ==
LOC: HO.HOSX 07:45
PROVIDERS: Visit Provider Physician Assistant
DX: S42.202A Unspecified fracture of upper end of left humerus, initial encounter for closed fracture (principal)
CPT/HCPCS: 73030; 99212

== ENCOUNTER 2020-12-15 07:21 | Outpatient (REF) | payer OTHER, SELFPAY ==
--- NOTE | ~2020-12-15 | XR_ITS ---
EXAMINATION: XR SHOULDER, LEFT CLINICAL INFORMATION: Fracture COMPARISON: Previous x-ray November 2020 TECHNIQUE: Two views of the left shoulder. FINDINGS: There is a healing left humeral neck fracture with bony callus formation. Alignment appears unchanged. There is soft tissue calcification or ossification inferior to the glenohumeral joint. There is glenohumeral joint is normal. There is mild arthritis at the acromioclavicular joint. XR/XR shoulder LT min 2V IMPRESSION: Healing left humeral neck fracture. No change from previous exams.
== END 2020-12-15 07:22 | disposition home or self-care (01) ==
LOC: HO.HOSX 07:21
PROVIDERS: Visit Provider Physician Assistant
DX: S42.202D Unspecified fracture of upper end of left humerus, subsequent encounter for fracture with routine healing (principal)
CPT/HCPCS: 73030; 99212

== ENCOUNTER 2021-02-09 07:11 | Outpatient (REF) | payer OTHER, SELFPAY | END 2021-02-09 07:12 | disposition home or self-care (01) | LOC: HO.HOSX 07:11 | PROVIDERS: Visit Provider Physician Assistant | DX: Z13.89 Encounter for screening for other disorder (principal) ==

== ENCOUNTER 2021-04-12 19:02 | Emergency (ER) | payer OTHER, SELFPAY ==
--- NOTE | 2021-04-12 | ECG_ITS ---
Test Reason : seizure Blood Pressure : / mmHG Vent. Rate : 071 BPM Atrial Rate : 071 BPM P-R Int : 146 ms QRS Dur : 096 ms QT Int : 390 ms P-R-T Axes : 018 003 006 degrees QTc Int : 423 ms Normal sinus rhythm Nonspecific ST and T wave abnormality Abnormal ECG When compared with ECG of 27-AUG-2020 23:54, Vent. rate has decreased BY 36 BPM Nonspecific T wave abnormality now evident in Anterior leads Referred By: Hui Ace Electronically Signed By:ELVIA CUBA
--- NOTE | ~2021-04-12 | CT_ITS ---
EXAMINATION: CT HEAD WITHOUT CONTRAST CT CERVICAL SPINE WITHOUT CONTRAST CLINICAL INFORMATION: Fall. COMPARISON: CT head and cervical spine dated from 08/27/2020. TECHNIQUE: Contiguous axial imaging was performed from the skull base to vertex without intravenous administration of contrast. Contiguous axial imaging was performed from the upper chest through the skull base without intravenous administration of contrast. Coronal and sagittal reformats were obtained at the acquisition workstation. This CT examination was performed using dose optimization techniques as appropriate, variously including the following: *Automated exposure control *Adjustment of mA and/or kV according to patient size (this includes techniques or standardized protocols for targeted exams where dose is matched to indication/reason for exam; i.e. extremities or head) *Use of iterative reconstruction technique DLP: 416 mGy-cm FINDINGS: Head: There is no evidence of acute intracranial hemorrhage or edematous territorial infarction. A few foci of hypoattenuation in the periventricular and deep white matter are consistent with mild microangiopathy. Garcia-white matter differentiation is preserved. Proportional prominence of the ventricles and sulcal spaces. No evidence for obstructive hydrocephalus. No abnormal mass effect or midline shift. No extra-axial fluid collections. Small right parieto-occipital scalp contusion/hematoma. No acute osseous fractures. The mastoid air cells and paranasal sinuses are clear. Cervical Spine: The atlantooccipital and atlantoaxial articulations remain well aligned. Straightening of the normal cervical lordosis. Otherwise, there is anatomic alignment of the vertebral bodies and posterior elements. No evidence of acute fracture or subluxation. Multilevel cervical spondylosis with disc space narrowing, osteophytes and uncovertebral hypertrophy. There is no prevertebral soft tissue swelling. The thyroid gland and remaining cervical soft tissues are normal in appearance. The lung apices demonstrate mild mosaic attenuation bilaterally. CT/CT cervical spine wo con IMPRESSION: 1. Right parieto-occipital scalp contusion/hematoma without acute intracranial abnormalities. 2. No acute cervical spinal fractures or malalignment. 3. Cervical spondylosis. 4. Indeterminate mosaic attenuation of the lung parenchyma, possibly related with incomplete inspiratory effort and air-trapping.
[2021-04-12 19:11] VITALS: BP 123/68; BP 140/47; PULSE 74; PULSE 75; RESP 18; TEMP 37.1; O2SAT 100; BMI 30.9
[2021-04-12 19:38] LABS: Eosinophils Absolute Auto 0.1 X10*3/uL (0.0-0.4); Eosinophils Percent Auto 1.4 % (0-4); Mean Corpuscular HGB Conc 33.3 g/dl (31.0-35.0); Mean Corpuscular Hemoglobin 32.1 pg (27.0-33.0); Monocytes Percent Auto 9.6 % (2-11); PLT CLUMP 1; SCAN SMEAR FLAG 1
[2021-04-12 19:40] LABS: Basophils Percent Auto 0.3 % (0-2); Hematocrit 38.4 % (37.0-47.0); Hemoglobin 12.8 g/dl (12.0-16.0); Imm Gran Abs Auto 0.02 X10*3/uL (0.00-0.03); Imm Gran Pct Auto 0.3 % (0.0-0.4); MANUAL DIFF FLAG SCAN; Mean Corpuscular Volume 96.2 fL (80.0-98.0); Mean Platelet Volume 10.7 fL (9.4-12.3); Monocytes Absolute Auto 0.6 X10*3/uL (0.1-1.2); Neutrophils Absolute Auto 3.2 x10*3/uL (2.0-8.3); Neutrophils Percent Auto 54.4 % (45-73); Red Blood Count 3.99 X10*6/uL (4.20-5.50)
[2021-04-12 19:51] LABS: COVID-19 Test Negative (Negative)
[2021-04-12 19:52] LABS: Alanine Aminotransferase 10 U/L (0-31); Albumin Level 3.8 g/dL (3.5-5.0); Alkaline Phosphatase 89 U/L (39-117); Anion Gap 12 (12-20); Aspartate Amino Transferase 22 U/L (5-31); Bilirubin Direct < 0.2 mg/dL (0.0-0.5); Bilirubin Total 0.2 mg/dL (0.0-1.0); Blood Urea Nitrogen 11 mg/dL (9-16); Calcium 9.4 mg/dL (8.4-10.2); Carbon Dioxide 25 mmol/L (22-29); Chloride 108 mmol/L (96-108); Creatinine Clr Calc Pharmacy 77.3; Estimated Glomerular Filt Rate > 60; Glucose Random 115 mg/dL (60-115); Potassium 4.9 mmol/L (3.3-5.1); Sodium 140 mmol/L (135-145); Total Protein 7.1 g/dL (6.5-8.0)
--- NOTE | 2021-04-12 19:52 | ED_ITS ---
HPI - Seizure General Chief Complaint: Seizure Stated Complaint: WITNESSED SZ W/FALL FROM CHAIR PER SNF Time Seen by Provider: 04/12/21 19:05 Source: patient and EMS Mode of arrival: EMS History of Present Illness HPI Narrative: 60-year-old female with seizure history brought in by EMS after she had a witnessed seizure and fall from a sitting position while playing cards with staff. Patient states that she was playing solitaire in her own bed and that she was not playing cards with any other people. She states that the staff for got 1 of her pills this evening and otherwise denies any complaints such as fever, chills, shortness breath, chest pain/palpitations, urinary pain/burning/frequency. Seizure History: Yes Related Data Home Medications Medication Instructions Recorded Confirmed acetaminophen 325 mg tablet 650 mg PO Q4H PRN 08/27/20 08/27/20 aluminum-mag hydroxide-simethicone 30 ml PO Q4H PRN 08/27/20 08/27/20 200 mg-200 mg-20 mg/5 mL oral susp divalproex 250 mg tablet,delayed 750 mg PO BID 08/27/20 08/27/20 release ibuprofen 600 mg tablet 600 mg PO Q6H PRN 08/27/20 08/27/20 lisinopril 10 mg tablet 1 tab PO DAILY 08/27/20 08/27/20 loperamide 2 mg capsule 2 mg PO QID PRN 08/27/20 08/27/20 lorazepam 0.5 mg tablet 0.25 mg PO BID 08/27/20 08/27/20 magnesium hydroxide 400 mg/5 mL 400 mg PO DAILY PRN 08/27/20 08/27/20 oral suspension (Milk of Magnesia) nitrofurantoin 1 cap PO BID 08/27/20 08/27/20 monohydrate/macrocrystals 100 mg capsule polyethylene glycol 3350 17 gram 17 g PO DAILY 08/27/20 08/27/20 oral powder packet rosuvastatin 20 mg tablet 20 mg PO DAILY 08/27/20 08/27/20 topiramate 100 mg tablet 1 tab PO BID 08/27/20 08/27/20 Previous Rx's Medication Instructions Recorded levetiracetam 500 mg tablet 500 mg PO BID 30 Days #60 tab 08/29/20 cefdinir 300 mg capsule 300 mg PO Q12H 5 Days #10 cap 04/12/21 Allergies Allergy/AdvReac Type Severity Reaction Status Date / Time Penicillins Allergy Unknown Verified 12/15/20 10:23 Review of Systems Verdana 4l Review of Systems: Verdana 4d Pertinent positives and Verdana 4d negatives as stated in the HPI and 10 point review of systems is otherwise negative. Verdana 4d PMFSH Past Medical History Source: nursing notes reviewed Medical History Epilepsy HLD (hyperlipidemia) HTN (hypertension) Schizoaffective disorder, depressive type Seizure disorder Surgical History History of hysterectomy Social History Social History Household Members: Other Do you presently have visiting nurse or other home services: No Alcohol intake: never Patient Tobacco Use Status: Former Tobacco user Advance Directives: No Advance Directives Information Provided: Yes Patient : No service: No Current occupational status: disabled Current occupation: rt handed Physical Exam Verdana 4l Vital Signs: Verdana 4d Verdana 4d Vital Signs: Verdana 4d Verdana 4Bd Last Vital Signs Verdana 4d Waiter Waitress New 4d Waiter Waitress New 4d Temp 98.7 F 04/12/21 19:11 Waiter Waitress New 4d Pulse 75 04/12/21 19:11 Waiter Waitress New 4d Resp 18 04/12/21 19:11 BP 140/47 H 04/12/21 19:11 Pulse Ox 100 04/12/21 19:11 BMI result Body Mass Index 30.9 VITAL SIGNS: Reviewed. GENERAL: Well developed, well nourished, in no acute distress. HEAD: Normocephalic/atraumatic EYES: PERRLA, EOMI EARS: Ext canals without abnormality, TMs non-bulging and non-erythematous NOSE: Nares patent bilateral OROPHARYNX: no oral lesions noted, posterior pharynx clear NECK: C-collar in place without midline cervical spine tenderness, no adenopathy LUNGS: Normal breath sounds. No adventitious sounds or accessory muscle use. SpO2<100> CARDIOVASCULAR: Regular rate and rhythm without noted murmurs, no JVD or lower extremity edema. ABDOMEN: Soft, non-tender, non-distended with bowel sounds. MUSCULOSKELETAL: No tenderness, deformities, or effusions noted on gross inspection. EXTREMITIES: No cyanosis, clubbing or edema. SKIN: Inspection of the skin reveals no rashes NEUROLOGIC: Alert and oriented x 4. Strength and sensation to light touch were grossly intact x 4 and otherwise nonfocal Course Course Course Narrative: 60-year-old female with history and clinical presentation consistent with seizure, will evaluate for infection/electrolytes/seizure medication levels. Review of all demonstrate supratherapeutic valproic acid levels as a UTI. She will receive initial antibiotics here in the emergency room and then be discharged with remaining course. The to hold patient's valproic acid and recheck the level in 1-2 days as this may have contributed to patient's breakthrough seizure. In addition, they are instructed to follow-up with patient's neurologist at [facility]. MDM - Seizure Lab Data Result diagrams: 04/12/21 19:30 04/12/21 19:30 Labs: Lab Results 04/12/21 04/12/21 04/12/21 Range/Units 19:30 19:30 19:30 WBC 5.9 (4.8-10.8) X10*3/uL RBC 3.99 L (4.20-5.50) X10*6/uL Hgb 12.8 (12.0-16.0) g/dl Hct 38.4 (37.0-47.0) % MCV 96.2 (80.0-98.0) fL MCH 32.1 (27.0-33.0) pg MCHC 33.3 (31.0-35.0) g/dl RDW 13.0 (11.0-16.0) % Plt Count 136 L (160-400) X10*3/uL MPV 10.7 (9.4-12.3) fL Immature Gran % (Auto) 0.3 (0.0-0.4) % Neut % (Auto) 54.4 (45-73) % Lymph % (Auto) 34.0 (20-40) % [place] % (Auto) 9.6 (2-11) % Eos % (Auto) 1.4 (0-4) % Baso % (Auto) 0.3 (0-2) % Lymph # (Auto) 2.0 (1.2-4.9) X10*3/uL [place] # (Auto) 0.6 (0.1-1.2) X10*3/uL Eos # (Auto) 0.1 (0.0-0.4) X10*3/uL Baso # (Auto) 0.0 (0.0-0.2) X10*3/uL Abs Immat Gran (auto) 0.02 (0.00-0.03) X10*3/uL Absolute Neuts (auto) 3.2 (2.0-8.3) x10*3/uL Absolute Nucleated RBC 0.000 (0.0-0.012) X10*3/uL Nucleated RBC % (auto) 0.0 (0.0-0.2) /100WBC Smear Tech's Comments VERIFIED Sodium 140 (135-145) mmol/L Potassium 4.9 D (3.3-5.1) mmol/L Chloride 108 (96-108) mmol/L Carbon Dioxide 25 (22-29) mmol/L Anion Gap 12 (12-20) BUN 11 (9-16) mg/dL Creatinine 0.80 (0.5-1.4) mg/dL Estim Creat Clear Calc 77.3 Estimated GFR > 60 Random Glucose 115 (60-115) mg/dL Calcium 9.4 D (8.4-10.2) mg/dL Total Bilirubin 0.2 (0.0-1.0) mg/dL Direct Bilirubin < 0.2 (0.0-0.5) mg/dL AST 22 D (5-31) U/L ALT 10 (0-31) U/L Alkaline Phosphatase 89 D (39-117) U/L Total Protein 7.1 (6.5-8.0) g/dL Albumin 3.8 (3.5-5.0) g/dL Urine Color Urine Appearance Urine pH (5.0-8.0) Ur Specific Tat[place] (1.005-1.025) Urine Protein (NEG-TRACE) MG/DL Urine Glucose (UA) (NEG) MG/DL Urine Ketones (NEG) MG/DL Urine Blood (NEG) Urine Nitrite (NEG) Ur Leukocyte Esterase (NEG) Valproic Acid 135.9 H* (50.0-100.0) mcg/mL COVID-19 (LOENIDAS) Negative (Negative) COVID-19 Clin Com See Note 04/12/21 Range/Units 21:22 WBC (4.8-10.8) X10*3/uL RBC (4.20-5.50) X10*6/uL Hgb (12.0-16.0) g/dl Hct (37.0-47.0) % MCV (80.0-98.0) fL MCH (27.0-33.0) pg MCHC (31.0-35.0) g/dl RDW (11.0-16.0) % Plt Count (160-400) X10*3/uL MPV (9.4-12.3) fL Immature Gran % (Auto) (0.0-0.4) % Neut % (Auto) (45-73) % Lymph % (Auto) (20-40) % [place] % (Auto) (2-11) % Eos % (Auto) (0-4) % Baso % (Auto) (0-2) % Lymph # (Auto) (1.2-4.9) X10*3/uL [place] # (Auto) (0.1-1.2) X10*3/uL Eos # (Auto) (0.0-0.4) X10*3/uL Baso # (Auto) (0.0-0.2) X10*3/uL Abs Immat Gran (auto) (0.00-0.03) X10*3/uL Absolute Neuts (auto) (2.0-8.3) x10*3/uL Absolute Nucleated RBC (0.0-0.012) X10*3/uL Nucleated RBC % (auto) (0.0-0.2) /100WBC Smear Tech's Comments Sodium (135-145) mmol/L Potassium (3.3-5.1) mmol/L Chloride (96-108) mmol/L Carbon Dioxide (22-29) mmol/L Anion Gap (12-20) BUN (9-16) mg/dL Creatinine (0.5-1.4) mg/dL Estim Creat Clear Calc Estimated GFR Random Glucose (60-115) mg/dL Calcium (8.4-10.2) mg/dL Total Bilirubin (0.0-1.0) mg/dL Direct Bilirubin (0.0-0.5) mg/dL AST (5-31) U/L ALT (0-31) U/L Alkaline Phosphatase (39-117) U/L Total Protein (6.5-8.0) g/dL Albumin (3.5-5.0) g/dL Urine Color YELLOW Urine Appearance HAZY Urine pH 6.5 (5.0-8.0) Ur Specific [place] 1.015 (1.005-1.025) Urine Protein NEG (NEG-TRACE) MG/DL Urine Glucose (UA) NEG (NEG) MG/DL Urine Ketones NEG (NEG) MG/DL Urine Blood NEG (NEG) Urine Nitrite NEG (NEG) Ur Leukocyte Esterase 3+ H (NEG) Valproic Acid (50.0-100.0) mcg/mL COVID-19 (LEONIDAS) (Negative) COVID-19 Clin Com ECG Data Attestation: I personally reviewed and interpreted this ECG as follows: Prior ECG tracings: available for review Interpretation: NSR, HR-71, no STEMI, VA/QRS/QTC are within normal limits. Discharge Plan Discharge Clinical Impression: Seizure, UTI (urinary tract infection) Patient Disposition: Xfer [facility] Instructions: Urinary Tract Infection in Women (DC), Recurrent Seizures in Adults (ED) Additional Instructions: 1. Resume all home medications except valproic acid. Recommend following up with patient's neurologist on 04/13 to discuss further management regarding valproic acid and the current levels 135.9. 2. A course of antibiotics has been provided for patient's UTI. Prescriptions: New cefdinir 300 mg capsule 300 mg PO Q12H 5 Days Qty: 10 0RF No Action acetaminophen 325 mg Tablet 650 mg PO Q4H PRN (Reason: Pain, Mild) 0RF divalproex 250 mg tablet,delayed release (DR/EC) 750 mg PO BID 0RF loperamide 2 mg Capsule 2 mg PO QID PRN (Reason: Loose Stool) 0RF polyethylene glycol 3350 17 gram Powder In Packet 17 g PO DAILY 0RF lorazepam 0.5 mg Tablet 0.25 mg PO BID 0RF magnesium hydroxide [Milk of Magnesia] 400 mg/5 mL Suspension 400 mg PO DAILY PRN (Reason: Constipation) 0RF lisinopril 10 mg tablet 1 tab PO DAILY 0RF alum-mag hydroxide-simeth 200-200-20 mg/5 mL Suspension 30 ml PO Q4H PRN (Reason: Abdominal Discomfort) 0RF ibuprofen 600 mg Tablet 600 mg PO Q6H PRN (Reason: Pain) 0RF topiramate 100 mg tablet 1 tab PO BID 0RF rosuvastatin 20 mg Tablet 20 mg PO DAILY 0RF nitrofurantoin monohyd/m-cryst 100 mg capsule 1 cap PO BID 0RF Label Comments: pt started on 08/25/20. pt to take BID for 7 days. levetiracetam 500 mg Tablet 500 mg PO BID 30 Days Qty: 60 0RF
[2021-04-12 19:59] LABS: White Blood Count 5.9 X10*3/uL (4.8-10.8)
[2021-04-12 20:01] LABS: Platelet Count 136 X10*3/uL (160-400)
[2021-04-12 20:02] LABS: SLIDE REVIEW VERIFIED
[2021-04-12 20:08] LABS: Valproate 135.9 mcg/mL (50.0-100.0)
[2021-04-12 21:28] LABS: Appearance Urine HAZY; Color Urine YELLOW; Glucose Urine UA NEG (NEG); Leukocyte Esterase Urine 3+ (NEG); Nitrite Urine NEG (NEG); PH 6.5 (5.0-8.0); Specific Gravity - Urine 1.015 (1.005-1.025); UACC Culture Trigger YES; Urine Blood NEG (NEG); Urine Ketones NEG (NEG); Urine Protein NEG (NEG-TRACE)
[2021-04-12 21:34] LABS: Bacteria Urine 2+ /LPF; Squamous Epithelial Cell Urine 4+ /LPF
[2021-04-12 21:35] LABS: RBC Urine 0 /HPF (0)
[2021-04-12] MEDS: cefTRIAXone sodium 1 GM in 0.9 % Sodium Chloride 50 ML IV (21:42)
--- NOTE | 2021-04-13 00:17 | PC.NURSE ---
EMS at bedside for transport. This RN updating daughter on pt condition.
[2021-04-17 10:32] LABS: Levetiracetam Keppra <1.0 mcg/mL (12.0-46.0)
== END 2021-04-13 00:17 | disposition skilled nursing facility (03) ==
PROVIDERS: Emergency Provider Student in an Organized Health Care Education/Training Program
DX: G40.909 Epilepsy, unspecified, not intractable, without status epilepticus (principal); N39.0 Urinary tract infection, site not specified; Z20.822 Contact with and (suspected) exposure to COVID-19
CPT/HCPCS: 70450; 72125; 80053; 80164; 80177; 81001; 82248; 85025; 87086; 87635; 93005; 96365; 99283; 99284; J0696

== ENCOUNTER 2022-07-03 08:49 | Emergency (ER) | payer OTHER, SELFPAY ==
[2022-07-03 09:00] VITALS: BP 140/71; BP 210/120; PULSE 105; PULSE 95; RESP 14; TEMP 36.7; O2SAT 96; BMI 33.3
--- NOTE | 2022-07-03 09:05 | ED.SEIZURE ---
HPI - Seizure General Chief Complaint: Seizure Stated Complaint: Seizure (lasting 8 minutes) per EMS Time Seen by Provider: 07/03/22 08:59 Source: patient, EMS, RN notes reviewed and old records reviewed History of Present Illness HPI Narrative: Patient from assisted living facility with a history of seizure disorder and schizoaffective disorder, presents after an 8 minute tonic clonic seizure. She has a history typically a partial seizures but has also had full tonic-clonic seizures in the past. Her last ER visit was in 2021 after a tonic-clonic seizure with a fall. She did not injure herself this time or fall or hit her head per EMS. Patient is currently awake and alert and denies complaints of pain. No recent illness. No recent changes to medications. She is on valproic acid. No other known precipitating factors. She was sent to the ER by staff because it was a longer than normal seizure and full tonic clonic. Seizure History: Yes Related Data Home Medications Medication Instructions Recorded Confirmed acetaminophen 325 mg tablet 650 mg PO Q4H PRN Pain, Mild 08/27/20 08/27/20 aluminum-mag hydroxide-simethicone 30 ml PO Q4H PRN Abdominal 08/27/20 08/27/20 200 mg-200 mg-20 mg/5 mL oral susp Discomfort divalproex 250 mg tablet,delayed 750 mg PO BID 08/27/20 08/27/20 release ibuprofen 600 mg tablet 600 mg PO Q6H PRN Pain 08/27/20 08/27/20 lisinopril 10 mg tablet 1 tab PO DAILY 08/27/20 08/27/20 loperamide 2 mg capsule 2 mg PO QID PRN Loose Stool 08/27/20 08/27/20 lorazepam 0.5 mg tablet 0.25 mg PO BID 08/27/20 08/27/20 magnesium hydroxide 400 mg/5 mL 400 mg PO DAILY PRN Constipation 08/27/20 08/27/20 oral suspension (Milk of Magnesia) nitrofurantoin 1 cap PO BID 08/27/20 08/27/20 monohydrate/macrocrystals 100 mg capsule polyethylene glycol 3350 17 gram 17 g PO DAILY 08/27/20 08/27/20 oral powder packet rosuvastatin 20 mg tablet 20 mg PO DAILY 08/27/20 08/27/20 topiramate 100 mg tablet 1 tab PO BID 08/27/20 08/27/20 Previous Rx's Medication Instructions Recorded levetiracetam 500 mg tablet 500 mg PO BID 30 days #60 tabs 08/29/20 cefdinir 300 mg capsule 300 mg PO Q12H 5 days #10 caps 04/12/21 cephalexin 500 mg capsule 500 mg PO TID #15 caps 07/03/22 Allergies Allergy/AdvReac Type Severity Reaction Status Date / Time Penicillins Allergy Unknown Verified 12/15/20 10:23 Review of Systems Constitutional: Comments: No fevers chills or recent illness ENT: Comments: No headache. No tongue biting Cardiovascular: Comments: No chest pain Respiratory: Comments: No cough Gastrointestinal: Comments: No abdominal pain Genitourinary: Comments: No dysuria Musculoskeletal: Comments: No extremity pain Neurologic: Comments: No focal weakness. Positive seizure, see HPI [facility] Past Medical History Medical History Epilepsy HLD (hyperlipidemia) HTN (hypertension) Schizoaffective disorder, depressive type Seizure disorder Surgical History History of hysterectomy Social History Social History Household Members: Other Do you presently have visiting nurse or other home services: No Alcohol intake: never Patient Tobacco Use Status: Former Tobacco user Advance Directives: Yes Advance Directives on File: Yes Advance Directives Date on File: 08/30/20 service: No Current occupational status: disabled Current occupation: rt handed Physical Exam Vital Signs: Vital Signs: Last Vital Signs Temp 98.1 F 07/03/22 09:00 Pulse 69 07/03/22 10:22 Resp 13 07/03/22 10:22 BP 149/59 H 07/03/22 10:22 Pulse Ox 98 07/03/22 10:22 O2 Del Method Room Air 07/03/22 10:22 BMI result Body Mass Index 33.3 Const: Other: Awake and alert. No acute distress HEENT: Other: Normocephalic atraumatic. Oropharynx normal without evidence of tongue biting Eyes: Other: Pupils equal round reactive to light Neck: Other: Neck is supple. No meningismus. Resp: Other: Clear and equal bilaterally without wheezes rales or rhonchi Cardio: Other: Regular rate and rhythm without murmurs rubs or gallops GI: Other: Soft nontender nondistended Skin: Other: Warm pink and dry Neuro: Other: Awake alert. No focal neuro deficit Extrem: Other: No obvious extremity trauma Medications Administered Discontinued Medications Generic Name Dose Route Start Last Admin Trade Name Freq PRN Reason Stop Dose Admin Cephalexin HCl 500 mg 07/03/22 10:13 07/03/22 10:36 Cephalexin 500 Mg Capsule PO 07/03/22 10:14 500 mg ONCE ONE Administration Medical Decision Making Medical Decision Making [facility] Narrative: Patient with tonic clonic seizure today. Longer than her typical seizure. No associated trauma or tongue biting or incontinence. Will check laboratory including electrolytes and valproic acid level. Her last imaging was last urine normal. I do not think she needs imaging today as there was no associated head trauma in no focal neuro deficit. Will observe for any further seizure activity. 11:32. Patient has remained stable in the emergency department and is currently without complaint. Workup shows normal CBC and electrolytes. Valproic acid level is in the therapeutic range. Urinalysis is consistent with urinary tract infection however. Treated with Keflex. Will discharge home with prescription for Keflex. Final diagnosis epileptic tonic clonic seizure in setting of urinary tract infection without evidence of sepsis. With a past history of seizure disorder Lab Data 07/03/22 09:21 07/03/22 10:13 Labs: Lab Results 07/03/22 07/03/22 07/03/22 Range/Units 09:21 09:21 09:46 WBC 6.7 (4.8-10.8) X10*3/uL RBC 4.57 (4.20-5.50) X10*6/uL Hgb 13.9 (12.0-16.0) g/dl Hct 42.1 (37.0-47.0) % MCV 92.1 (80.0-98.0) fL MCH 30.4 (27.0-33.0) pg MCHC 33.0 (31.0-35.0) g/dl RDW 13.6 (11.0-16.0) % Plt Count 152 L (160-400) X10*3/uL MPV 12.0 (9.4-12.3) fL Immature Gran % (Auto) 0.4 (0.0-0.4) % Neut % (Auto) 63.8 (45-73) % Lymph % (Auto) 27.2 (20-40) % [place] % (Auto) 6.4 (2-11) % Eos % (Auto) 1.8 (0-4) % Baso % (Auto) 0.4 (0-2) % Lymph # (Auto) 1.8 (1.2-4.9) X10*3/uL [place] # (Auto) 0.4 (0.1-1.2) X10*3/uL Eos # (Auto) 0.1 (0.0-0.4) X10*3/uL Baso # (Auto) 0.0 (0.0-0.2) X10*3/uL Abs Immat Gran (auto) 0.03 (0.00-0.03) X10*3/uL Absolute Neuts (auto) 4.3 (2.0-8.3) x10*3/uL Absolute Nucleated RBC 0.000 (0.0-0.012) X10*3/uL Nucleated RBC % (auto) 0.0 (0.0-0.2) /100WBC Sodium (135-145) mmol/L Potassium (3.3-5.1) mmol/L Chloride (96-108) mmol/L Carbon Dioxide (22-29) mmol/L Anion Gap (12-20) BUN (9-16) mg/dL Creatinine (0.5-1.4) mg/dL Estim Creat Clear Calc Estimated GFR Random Glucose (60-115) mg/dL Calcium (8.4-10.2) mg/dL Total Bilirubin (0.0-1.0) mg/dL AST (5-31) U/L ALT (0-31) U/L Alkaline Phosphatase (39-117) U/L Total Protein (6.5-8.0) g/dL Albumin (3.5-5.0) g/dL Urine Color Yellow Urine Appearance Clear Urine pH 6.5 (5.0-9.0) Ur Specific [place] <= 1.005 (1.005-1.025) Urine Protein Negative (Neg-Trace) mg/dL Urine Glucose (UA) Negative (Negative) mg/dL Urine Ketones Negative (Negative) mg/dL Urine Blood Negative (Negative) Urine Nitrite Negative (Negative) Ur Leukocyte Esterase Moderate (2+) H (Negative) Urine RBC 0-2 (0-2) /HPF Urine WBC 11-20 H (0-5) /HPF Ur Squamous Epith Cells 3-5 (0-2) /HPF Urine Bacteria None Seen (None Seen) Hyaline Casts 0-2 (0-2) /LPF Valproic Acid 63.0 (50.0-100.0) mcg/mL 07/03/22 Range/Units 10:13 WBC (4.8-10.8) X10*3/uL RBC (4.20-5.50) X10*6/uL Hgb (12.0-16.0) g/dl Hct (37.0-47.0) % MCV (80.0-98.0) fL MCH (27.0-33.0) pg MCHC (31.0-35.0) g/dl RDW (11.0-16.0) % Plt Count (160-400) X10*3/uL MPV (9.4-12.3) fL Immature Gran % (Auto) (0.0-0.4) % Neut % (Auto) (45-73) % Lymph % (Auto) (20-40) % Fin[place] % (Auto) (2-11) % Eos % (Auto) (0-4) % Baso % (Auto) (0-2) % Lymph # (Auto) (1.2-4.9) X10*3/uL [place] # (Auto) (0.1-1.2) X10*3/uL Eos # (Auto) (0.0-0.4) X10*3/uL Baso # (Auto) (0.0-0.2) X10*3/uL Abs Immat Gran (auto) (0.00-0.03) X10*3/uL Absolute Neuts (auto) (2.0-8.3) x10*3/uL Absolute Nucleated RBC (0.0-0.012) X10*3/uL Nucleated RBC % (auto) (0.0-0.2) /100WBC Sodium 142 (135-145) mmol/L Potassium 4.2 (3.3-5.1) mmol/L Chloride 113 H (96-108) mmol/L Carbon Dioxide 17 L (22-29) mmol/L Anion Gap 16 (12-20) BUN 9 (9-16) mg/dL Creatinine 0.74 (0.5-1.4) mg/dL Estim Creat Clear Calc 92.0 Estimated GFR > 60 Random Glucose 104 (60-115) mg/dL Calcium 8.9 (8.4-10.2) mg/dL Total Bilirubin 0.4 (0.0-1.0) mg/dL AST 20 (5-31) U/L ALT 12 (0-31) U/L Alkaline Phosphatase 119 H (39-117) U/L Total Protein 7.6 (6.5-8.0) g/dL Albumin 4.1 (3.5-5.0) g/dL Urine Color Urine Appearance Urine pH (5.0-9.0) Ur Specific [place] (1.005-1.025) Urine Protein (Neg-Trace) mg/dL Urine Glucose (UA) (Negative) mg/dL Urine Ketones (Negative) mg/dL Urine Blood (Negative) Urine Nitrite (Negative) Ur Leukocyte Esterase (Negative) Urine RBC (0-2) /HPF Urine WBC (0-5) /HPF Ur Squamous Epith Cells (0-2) /HPF Urine Bacteria (None Seen) Hyaline Casts (0-2) /LPF Valproic Acid (50.0-100.0) mcg/mL Discharge Plan Discharge Clinical Impression: Generalized seizure, Urinary tract infection Patient Disposition: [facility] Instructions: Urinary Tract Infection in Women (ED), Epilepsy in Older Adults (ED) Additional Instructions: Your workup in the emergency department showed normal blood work. Your seizure medicine, valproic acid level, was in the therapeutic range. No adjustments are necessary for this medication. Urinalysis showed signs of urinary tract infection which may have contributed to your seizure today. Your treated with cephalexin, an antibiotic, in the emergency department. You will receive a prescription for this to take for the next 5 days as well. Prescriptions: New cephalexin 500 mg capsule 500 mg PO TID Qty: 15 0RF No Action acetaminophen 325 mg Tablet 650 mg PO Q4H PRN (Reason: Pain, Mild) divalproex 250 mg tablet,delayed release (DR/EC) 750 mg PO BID loperamide 2 mg Capsule 2 mg PO QID PRN (Reason: Loose Stool) polyethylene glycol 3350 17 gram Powder In Packet 17 g PO DAILY lorazepam 0.5 mg Tablet 0.25 mg PO BID magnesium hydroxide [Milk of Magnesia] 400 mg/5 mL Suspension 400 mg PO DAILY PRN (Reason: Constipation) lisinopril 10 mg tablet 1 tab PO DAILY alum-mag hydroxide-simeth 200-200-20 mg/5 mL Suspension 30 ml PO Q4H PRN (Reason: Abdominal Discomfort) ibuprofen 600 mg Tablet 600 mg PO Q6H PRN (Reason: Pain) topiramate 100 mg tablet 1 tab PO BID rosuvastatin 20 mg Tablet 20 mg PO DAILY nitrofurantoin monohyd/m-cryst 100 mg capsule 1 cap PO BID Patient Comments: pt started on 08/25/20. pt to take BID for 7 days. levetiracetam 500 mg Tablet 500 mg PO BID 30 Days Qty: 60 0RF cefdinir 300 mg capsule 300 mg PO Q12H 5 Days Qty: 10 0RF
--- NOTE | 2022-07-03 09:23 | PC.NURSE ---
Pt up to use commode with one assist, speaking in full clear sentences responding to questions appropriately. States she has been taking her medications as prescribed. IV established, labs drawn and sent.
[2022-07-03 09:25] LABS: MANUAL DIFF FLAG NO
[2022-07-03 09:27] LABS: Basophils Percent Auto 0.4 % (0-2); Eosinophils Absolute Auto 0.1 X10*3/uL (0.0-0.4); Eosinophils Percent Auto 1.8 % (0-4); Hematocrit 42.1 % (37.0-47.0); Hemoglobin 13.9 g/dl (12.0-16.0); Imm Gran Abs Auto 0.03 X10*3/uL (0.00-0.03); Imm Gran Pct Auto 0.4 % (0.0-0.4); Lymphocytes Absolute Auto 1.8 X10*3/uL (1.2-4.9); Lymphocytes Percent Auto 27.2 % (20-40); Mean Corpuscular Hemoglobin 30.4 pg (27.0-33.0); Mean Corpuscular Volume 92.1 fL (80.0-98.0); Monocytes Absolute Auto 0.4 X10*3/uL (0.1-1.2); Monocytes Percent Auto 6.4 % (2-11); Neutrophils Absolute Auto 4.3 x10*3/uL (2.0-8.3); Neutrophils Percent Auto 63.8 % (45-73); Platelet Count 152 X10*3/uL (160-400); Red Blood Count 4.57 X10*6/uL (4.20-5.50); Red Cell Distribution Width 13.6 % (11.0-16.0); White Blood Count 6.7 X10*3/uL (4.8-10.8)
[2022-07-03 09:54] LABS: Appearance Urine Clear; Color Urine Yellow; Glucose Urine UA Negative (Negative); Leukocyte Esterase Urine Moderate (2+) (Negative); Nitrite Urine Negative (Negative); PH 6.5 (5.0-9.0); Specific Gravity - Urine <= 1.005 (1.005-1.025); UMIC TRIGGER UACC YES; Urine Blood Negative (Negative); Urine Ketones Negative (Negative); Urine Protein Negative (Neg-Trace)
[2022-07-03 10:00] LABS: Bacteria Urine None Seen (None Seen); Hyaline Casts Urine 0-2 /LPF (0-2); RBC Urine 0-2 /HPF (0-2); UACC Culture Trigger YES
[2022-07-03 10:22] VITALS: BP 149/59; PULSE 69; RESP 13; O2SAT 98
[2022-07-03] MEDS: cephALEXin 500 MG CAPSULE PO (10:36)
--- NOTE | 2022-07-03 11:24 | PC.NURSE ---
Pt resting in bed, vss.
[2022-07-03 11:30] LABS: Alanine Aminotransferase 12 U/L (0-31); Albumin Level 4.1 g/dL (3.5-5.0); Alkaline Phosphatase 119 U/L (39-117); Anion Gap 16 (12-20); Aspartate Amino Transferase 20 U/L (5-31); Bilirubin Total 0.4 mg/dL (0.0-1.0); Blood Urea Nitrogen 9 mg/dL (9-16); Calcium 8.9 mg/dL (8.4-10.2); Carbon Dioxide 17 mmol/L (22-29); Chloride 113 mmol/L (96-108); Estimated Glomerular Filt Rate > 60; Glucose Random 104 mg/dL (60-115); Potassium 4.2 mmol/L (3.3-5.1); Sodium 142 mmol/L (135-145); Total Protein 7.6 g/dL (6.5-8.0)
--- NOTE | 2022-07-03 12:15 | PC.NURSE ---
Pt awaiting EMS transport back to [place]
== END 2022-07-03 13:12 | disposition skilled nursing facility (03) ==
PROVIDERS: Emergency Provider Emergency Medicine; PCP Internal Medicine
DX: G40.409 Other generalized epilepsy and epileptic syndromes, not intractable, without status epilepticus (principal); N39.0 Urinary tract infection, site not specified; I10 Essential (primary) hypertension; E78.5 Hyperlipidemia, unspecified; F25.1 Schizoaffective disorder, depressive type; Z79.899 Other long term (current) drug therapy; Z79.02 Long term (current) use of antithrombotics/antiplatelets
CPT/HCPCS: 36415; 80053; 80164; 81001; 85025; 87086; 99283; 99284

== ENCOUNTER 2022-07-22 21:50 | Emergency (ER) | payer OTHER, SELFPAY ==
--- NOTE | ~2022-07-22 | CT_ITS ---
EXAMINATION: NONCONTRAST HEAD CT NONCONTRAST CERVICAL SPINE CT INDICATION INFORMATION: Trauma COMPARISON: 04/12/2021 TECHNIQUE: Separate noncontrast CT examinations of the head and cervical spine were performed. Coronal and sagittal images were created for each examination at the technologist workstation. This CT examination was performed using dose optimization techniques as appropriate, variously including the following: *Automated exposure control *Adjustment of mA and/or kV according to patient size (this includes techniques or standardized protocols for targeted exams where dose is matched to indication/reason for exam; i.e. extremities or head) *Use of iterative reconstruction technique DLP: 1196 mGy-cm FINDINGS: Head: There is no evidence of acute intracranial hemorrhage or territorial infarction. No abnormal mass effect or midline shift is seen. Garcia to white matter differentiation is well preserved. No extra-axial fluid collections are identified. No hydrocephalus. Proportional prominence of the ventricles and sulcal spaces is consistent with mild volume loss. Patchy periventricular and deep white matter hypoattenuation is consistent with mild small vessel ischemic changes. Thin right parietal subgaleal hematoma. The mastoid air cells and visualized portions of the paranasal sinuses are well aerated. Cervical spine: There is anatomic alignment of the vertebral bodies and posterior elements. The atlantoaxial and atlantooccipital articulations are intact. Vertebral body heights maintained. Endplate osteophytes and loss of disc space height throughout the cervical spine. No evidence of acute fracture. No prevertebral soft tissue swelling. Visualized portions of the lung apices are unremarkable. The thyroid gland is unremarkable. CT/CT cervical spine wo IV con IMPRESSION: * No acute intracranial bleed or territorial infarction. Thin right parietal subgaleal hematoma. * No acute fracture or malalignment of the cervical spine.
--- NOTE | ~2022-07-22 | XR_ITS ---
EXAMINATION: XR CHEST CLINICAL INFORMATION: Fever COMPARISON: 08/27/2020 TECHNIQUE: Frontal view of the chest was obtained. FINDINGS: No significant abnormality is noted involving the heart, lungs, mediastinum, bony thorax or soft tissues. XR/XR chest 1V IMPRESSION: Unremarkable examination.
[2022-07-22 21:55] VITALS: BP 155/70; PULSE 120; O2SAT 97
[2022-07-22 21:58] VITALS: BP 141/91; PULSE 112; RESP 16; TEMP 38; O2SAT 97; BMI 35.7
[2022-07-22 22:13] VITALS: BP 141/91; PULSE 112; RESP 16; TEMP 38; O2SAT 97
--- NOTE | 2022-07-22 22:25 | ED_ITS ---
HPI - Seizure General Chief Complaint: Seizure Stated Complaint: SEIZURES Time Seen by Provider: 07/22/22 22:25 Source: EMS and RN notes reviewed Mode of arrival: EMS History of Present Illness HPI Narrative: Patient is 60 minutes resolved from assisted living place history of seizures since childhood Depakote and Keppra hyperlipidemia hypertension schizoaffective disorder brought for unwitnessed fall likely had a seizure noted to have abrasion on right elbow according to previous notes patient ambulates independently oriented x2 Seizure History: Yes Related Data Home Medications Medication Instructions Recorded Confirmed acetaminophen 325 mg tablet 650 mg PO Q4H PRN Pain, Mild 08/27/20 08/27/20 aluminum-mag hydroxide-simethicone 30 ml PO Q4H PRN Abdominal 08/27/20 08/27/20 200 mg-200 mg-20 mg/5 mL oral susp Discomfort divalproex 250 mg tablet,delayed 750 mg PO BID 08/27/20 08/27/20 release ibuprofen 600 mg tablet 600 mg PO Q6H PRN Pain 08/27/20 08/27/20 lisinopril 10 mg tablet 1 tab PO DAILY 08/27/20 08/27/20 loperamide 2 mg capsule 2 mg PO QID PRN Loose Stool 08/27/20 08/27/20 lorazepam 0.5 mg tablet 0.25 mg PO BID 08/27/20 08/27/20 magnesium hydroxide 400 mg/5 mL 400 mg PO DAILY PRN Constipation 08/27/20 08/27/20 oral suspension (Milk of Magnesia) nitrofurantoin 1 cap PO BID 08/27/20 08/27/20 monohydrate/macrocrystals 100 mg capsule polyethylene glycol 3350 17 gram 17 g PO DAILY 08/27/20 08/27/20 oral powder packet rosuvastatin 20 mg tablet 20 mg PO DAILY 08/27/20 08/27/20 topiramate 100 mg tablet 1 tab PO BID 08/27/20 08/27/20 Previous Rx's Medication Instructions Recorded levetiracetam 500 mg tablet 500 mg PO BID 30 days #60 tabs 08/29/20 cefdinir 300 mg capsule 300 mg PO Q12H 5 days #10 caps 04/12/21 cephalexin 500 mg capsule 500 mg PO TID #15 caps 07/03/22 Allergies Allergy/AdvReac Type Severity Reaction Status Date / Time Penicillins Allergy Unknown Verified 12/15/20 10:23 Review of Systems Review of Systems: Yes Unobtainable due to mental status [facility] Past Medical History Medical History Epilepsy HLD (hyperlipidemia) HTN (hypertension) Schizoaffective disorder, depressive type Seizure disorder Surgical History History of hysterectomy Social History Social History Household Members: Other Do you presently have visiting nurse or other home services: No Alcohol intake: never Patient Tobacco Use Status: Former Tobacco user Smoked in Last 30 Days: No Use of substances other than those prescribed or required for medical reasons: No Advance Directives: Yes Advance Directives on File: Yes Advance Directives Date on File: 08/30/20 Patient : No service: No Current occupational status: disabled Current occupation: rt handed Physical Exam Vital Signs: Vital Signs: Last Vital Signs Temp 99.0 F 07/23/22 06:00 Pulse 76 07/23/22 06:00 Resp 16 07/23/22 06:00 BP 108/48 L 07/23/22 06:00 Pulse Ox 94 07/23/22 06:00 O2 Del Method Room Air 07/23/22 06:00 BMI result Body Mass Index 35.7 Appearance: Alert. And awake. No acute distress. Eyes: PERRLA, No Nystagmus ENT: Pharynx normal. Oral Mucosa moist Neck: Normal inspection. Neck supple. CVS: Normal heart rate and rhythm. Pulses normal. Respiratory: No respiratory distress. Equal air entry bilateral, no wheezing/rales/rhonchi Abdomen: Soft and nontender. Bowel sounds are present, no mass palpable, no CVA tenderness Skin: Skin warm and dry. Normal skin color. Normal skin turgor. Extremities: No lower extremity edema. No calf tenderness simple abrasion right elbow Neuro: awake and confused Moving all 4 extremities Medications Administered Discontinued Medications Generic Name Dose Route Start Last Admin Trade Name Freq PRN Reason Stop Dose Admin Acetaminophen 650 mg 07/23/22 00:28 07/23/22 00:52 Acetaminophen Supp 650 Mg Supp.Rect NH 07/23/22 00:29 650 mg ONCE ONE Administration Sodium Chloride 1,000 mls @ 999 mls/hr 07/23/22 03:11 07/23/22 05:10 Ns IV 07/23/22 04:11 Infused .Q1H1M ONE Infusion Lorazepam 2 mg 07/22/22 22:59 07/22/22 23:03 Lorazepam 2 Mg/Ml Vial IM 07/22/22 23:00 2 mg ONCE ONE Administration Medical Decision Making Medical Decision Making [facility] Narrative: Patient status post seizure on Keppra and Depakote with therapeutic Depakote level. Noticed a low-grade temperature in the ER workup negative had slightly elevated lactic acid 2.3 which is likely after post seizure. Patient procalcitonin CRP negative no source of infection noticed patient received 2 L of fluids likely acid level improved will discharge patient back Lab Data [facility] Lab Attestation statement: I reviewed the patient's lab results. 07/22/22 23:17 07/22/22 22:55 Labs: Lab Results 07/22/22 07/22/22 07/22/22 Range/Units 22:55 22:55 23:17 WBC 11.8 H (4.8-10.8) X10*3/uL RBC 4.32 (4.20-5.50) X10*6/uL Hgb 13.4 (12.0-16.0) g/dl Hct 38.8 (37.0-47.0) % MCV 89.8 (80.0-98.0) fL MCH 31.0 (27.0-33.0) pg MCHC 34.5 (31.0-35.0) g/dl RDW 13.2 (11.0-16.0) % Plt Count TNP MPV 12.1 (9.4-12.3) fL Immature Gran % (Auto) 0.3 (0.0-0.4) % Neut % (Auto) 77.4 H (45-73) % Lymph % (Auto) 15.4 L (20-40) % Warren % (Auto) 6.5 (2-11) % Eos % (Auto) 0.1 (0-4) % Baso % (Auto) 0.3 (0-2) % Lymph # (Auto) 1.8 (1.2-4.9) X10*3/uL Warren # (Auto) 0.8 (0.1-1.2) X10*3/uL Eos # (Auto) 0.0 (0.0-0.4) X10*3/uL Baso # (Auto) 0.0 (0.0-0.2) X10*3/uL Abs Immat Gran (auto) 0.04 H (0.00-0.03) X10*3/uL Absolute Neuts (auto) 9.1 H (2.0-8.3) x10*3/uL Absolute Nucleated RBC 0.000 (0.0-0.012) X10*3/uL Nucleated RBC % (auto) 0.0 (0.0-0.2) /100WBC Smear Tech's Comments VERIFIED Sodium 138 (135-145) mmol/L Potassium 4.4 (3.3-5.1) mmol/L Chloride 106 (96-108) mmol/L Carbon Dioxide 20 L (22-29) mmol/L Anion Gap 16 (12-20) BUN 8 L (9-16) mg/dL Creatinine 0.80 (0.5-1.4) mg/dL Estim Creat Clear Calc 79.2 Estimated GFR > 60 Random Glucose 123 H (60-115) mg/dL Lactic Acid (0.5-2.0) mmol/L Lactic Acid F/U @ 2Hr (0.5-2.0) mmol/L Calcium 9.3 (8.4-10.2) mg/dL Magnesium 1.8 (1.6-2.6) mg/dL Total Bilirubin 0.3 (0.0-1.0) mg/dL AST 19 (5-31) U/L ALT 13 (0-31) U/L Alkaline Phosphatase 130 H (39-117) U/L C-Reactive Protein 0.33 (< or = 0.50) mg/dL Total Protein 7.9 (6.5-8.0) g/dL Albumin 4.5 (3.5-5.0) g/dL Procalcitonin 0.02 ng/mL Urine Color Urine Appearance Urine pH (5.0-9.0) Ur Specific [place] (1.005-1.025) Urine Protein (Neg-Trace) mg/dL Urine Glucose (UA) (Negative) mg/dL Urine Ketones (Negative) mg/dL Urine Blood (Negative) Urine Nitrite (Negative) Ur Leukocyte Esterase (Negative) Valproic Acid 83.3 (50.0-100.0) mcg/mL COVID-19 (LEONIDAS) (Negative) COVID-19 Clin Com Influenza Type A (KURT) (Negative) Influenza Type B (KURT) (Negative) Influenza A & B Note 07/23/22 07/23/22 07/23/22 Range/Units 00:58 00:58 01:00 WBC (4.8-10.8) X10*3/uL RBC (4.20-5.50) X10*6/uL Hgb (12.0-16.0) g/dl Hct (37.0-47.0) % MCV (80.0-98.0) fL MCH (27.0-33.0) pg MCHC (31.0-35.0) g/dl RDW (11.0-16.0) % Plt Count MPV (9.4-12.3) fL Immature Gran % (Auto) (0.0-0.4) % Neut % (Auto) (45-73) % Lymph % (Auto) (20-40) % Warren % (Auto) (2-11) % Eos % (Auto) (0-4) % Baso % (Auto) (0-2) % Lymph # (Auto) (1.2-4.9) X10*3/uL [place] # (Auto) (0.1-1.2) X10*3/uL Eos # (Auto) (0.0-0.4) X10*3/uL Baso # (Auto) (0.0-0.2) X10*3/uL Abs Immat Gran (auto) (0.00-0.03) X10*3/uL Absolute Neuts (auto) (2.0-8.3) x10*3/uL Absolute Nucleated RBC (0.0-0.012) X10*3/uL Nucleated RBC % (auto) (0.0-0.2) /100WBC Smear Tech's Comments Sodium (135-145) mmol/L Potassium (3.3-5.1) mmol/L Chloride (96-108) mmol/L Carbon Dioxide (22-29) mmol/L Anion Gap (12-20) BUN (9-16) mg/dL Creatinine (0.5-1.4) mg/dL Estim Creat Clear Calc Estimated GFR Random Glucose (60-115) mg/dL Lactic Acid (0.5-2.0) mmol/L Lactic Acid F/U @ 2Hr (0.5-2.0) mmol/L Calcium (8.4-10.2) mg/dL Magnesium (1.6-2.6) mg/dL Total Bilirubin (0.0-1.0) mg/dL AST (5-31) U/L ALT (0-31) U/L Alkaline Phosphatase (39-117) U/L C-Reactive Protein (< or = 0.50) mg/dL Total Protein (6.5-8.0) g/dL Albumin (3.5-5.0) g/dL Procalcitonin ng/mL Urine Color Yellow Urine Appearance Clear Urine pH 8.0 (5.0-9.0) Ur Specific [place] <= 1.005 (1.005-1.025) Urine Protein Negative (Neg-Trace) mg/dL Urine Glucose (UA) Negative (Negative) mg/dL Urine Ketones Negative (Negative) mg/dL Urine Blood Negative (Negative) Urine Nitrite Negative (Negative) Ur Leukocyte Esterase Negative (Negative) Valproic Acid (50.0-100.0) mcg/mL COVID-19 (LEONIDAS) Negative (Negative) COVID-19 Clin Com See Note Influenza Type A (KURT) Negative (Negative) Influenza Type B (KURT) Negative (Negative) Influenza A & B Note See Note 07/23/22 07/23/22 Range/Units 03:39 05:51 WBC (4.8-10.8) X10*3/uL RBC (4.20-5.50) X10*6/uL Hgb (12.0-16.0) g/dl Hct (37.0-47.0) % MCV (80.0-98.0) fL MCH (27.0-33.0) pg MCHC (31.0-35.0) g/dl RDW (11.0-16.0) % Plt Count MPV (9.4-12.3) fL Immature Gran % (Auto) (0.0-0.4) % Neut % (Auto) (45-73) % Lymph % (Auto) (20-40) % Warren % (Auto) (2-11) % Eos % (Auto) (0-4) % Baso % (Auto) (0-2) % Lymph # (Auto) (1.2-4.9) X10*3/uL Warren # (Auto) (0.1-1.2) X10*3/uL Eos # (Auto) (0.0-0.4) X10*3/uL Baso # (Auto) (0.0-0.2) X10*3/uL Abs Immat Gran (auto) (0.00-0.03) X10*3/uL Absolute Neuts (auto) (2.0-8.3) x10*3/uL Absolute Nucleated RBC (0.0-0.012) X10*3/uL Nucleated RBC % (auto) (0.0-0.2) /100WBC Smear Tech's Comments Sodium (135-145) mmol/L Potassium (3.3-5.1) mmol/L Chloride (96-108) mmol/L Carbon Dioxide (22-29) mmol/L Anion Gap (12-20) BUN (9-16) mg/dL Creatinine (0.5-1.4) mg/dL Estim Creat Clear Calc Estimated GFR Random Glucose (60-115) mg/dL Lactic Acid 2.3 H* (0.5-2.0) mmol/L Lactic Acid F/U @ 2Hr 1.6 (0.5-2.0) mmol/L Calcium (8.4-10.2) mg/dL Magnesium (1.6-2.6) mg/dL Total Bilirubin (0.0-1.0) mg/dL AST (5-31) U/L ALT (0-31) U/L Alkaline Phosphatase (39-117) U/L C-Reactive Protein (< or = 0.50) mg/dL Total Protein (6.5-8.0) g/dL Albumin (3.5-5.0) g/dL Procalcitonin ng/mL Urine Color Urine Appearance Urine pH (5.0-9.0) Ur Specific [place] (1.005-1.025) Urine Protein (Neg-Trace) mg/dL Urine Glucose (UA) (Negative) mg/dL Urine Ketones (Negative) mg/dL Urine Blood (Negative) Urine Nitrite (Negative) Ur Leukocyte Esterase (Negative) Valproic Acid (50.0-100.0) mcg/mL COVID-19 (LEONIDAS) (Negative) COVID-19 Clin Com Influenza Type A (KURT) (Negative) Influenza Type B (KURT) (Negative) Influenza A & B Note Discharge Plan Discharge Clinical Impression: Epileptic seizure Patient Disposition: Home, Self-Care Instructions: Fever in Adults (ED), Epilepsy (ED) Additional Instructions: Continue your medications and follow up with neurologist You had low-grade fever likely viral Tylenol/Motrin for fever Report to the ER if high-grade fever /not getting better Prescriptions: No Action acetaminophen 325 mg Tablet 650 mg PO Q4H PRN (Reason: Pain, Mild) divalproex 250 mg tablet,delayed release (DR/EC) 750 mg PO BID loperamide 2 mg Capsule 2 mg PO QID PRN (Reason: Loose Stool) polyethylene glycol 3350 17 gram Powder In Packet 17 g PO DAILY lorazepam 0.5 mg Tablet 0.25 mg PO BID magnesium hydroxide [Milk of Magnesia] 400 mg/5 mL Suspension 400 mg PO DAILY PRN (Reason: Constipation) lisinopril 10 mg tablet 1 tab PO DAILY alum-mag hydroxide-simeth 200-200-20 mg/5 mL Suspension 30 ml PO Q4H PRN (Reason: Abdominal Discomfort) ibuprofen 600 mg Tablet 600 mg PO Q6H PRN (Reason: Pain) topiramate 100 mg tablet 1 tab PO BID rosuvastatin 20 mg Tablet 20 mg PO DAILY nitrofurantoin monohyd/m-cryst 100 mg capsule 1 cap PO BID Patient Comments: pt started on 08/25/20. pt to take BID for 7 days. levetiracetam 500 mg Tablet 500 mg PO BID 30 Days Qty: 60 0RF cefdinir 300 mg capsule 300 mg PO Q12H 5 Days Qty: 10 0RF cephalexin 500 mg capsule 500 mg PO TID Qty: 15 0RF
[2022-07-22] MEDS: LORazepam 2 MG/ML VIAL IM (23:03)
[2022-07-22 23:20] LABS: Valproate 83.3 mcg/mL (50.0-100.0)
[2022-07-22 23:22] LABS: Alanine Aminotransferase 13 U/L (0-31); Albumin Level 4.5 g/dL (3.5-5.0); Alkaline Phosphatase 130 U/L (39-117); Anion Gap 16 (12-20); Aspartate Amino Transferase 19 U/L (5-31); Bilirubin Total 0.3 mg/dL (0.0-1.0); Blood Urea Nitrogen 8 mg/dL (9-16); Calcium 9.3 mg/dL (8.4-10.2); Carbon Dioxide 20 mmol/L (22-29); Chloride 106 mmol/L (96-108); Creatinine Clr Calc Pharmacy 79.2; Estimated Glomerular Filt Rate > 60; Glucose Random 123 mg/dL (60-115); Magnesium 1.8 mg/dL (1.6-2.6); Potassium 4.4 mmol/L (3.3-5.1); Sodium 138 mmol/L (135-145); Total Protein 7.9 g/dL (6.5-8.0)
[2022-07-22 23:23] LABS: Basophils Percent Auto 0.3 % (0-2); Eosinophils Percent Auto 0.1 % (0-4); Hemoglobin 13.4 g/dl (12.0-16.0); MANUAL DIFF FLAG SCAN; Mean Platelet Volume 12.1 fL (9.4-12.3); PLT CLUMP 1; Red Cell Distribution Width 13.2 % (11.0-16.0); SCAN SMEAR FLAG 1
[2022-07-22 23:25] LABS: Hematocrit 38.8 % (37.0-47.0); Imm Gran Abs Auto 0.04 X10*3/uL (0.00-0.03); Imm Gran Pct Auto 0.3 % (0.0-0.4); Lymphocytes Absolute Auto 1.8 X10*3/uL (1.2-4.9); Lymphocytes Percent Auto 15.4 % (20-40); Mean Corpuscular HGB Conc 34.5 g/dl (31.0-35.0); Mean Corpuscular Volume 89.8 fL (80.0-98.0); Monocytes Absolute Auto 0.8 X10*3/uL (0.1-1.2); Monocytes Percent Auto 6.5 % (2-11); Neutrophils Absolute Auto 9.1 x10*3/uL (2.0-8.3); Neutrophils Percent Auto 77.4 % (45-73); Red Blood Count 4.32 X10*6/uL (4.20-5.50)
[2022-07-22 23:48] LABS: White Blood Count 11.8 X10*3/uL (4.8-10.8)
[2022-07-22 23:50] LABS: SLIDE REVIEW VERIFIED
[2022-07-23 00:19] VITALS: BP 150/83; PULSE 103; RESP 19; TEMP 38.6; O2SAT 95
[2022-07-23] MEDS: Acetaminophen Supp 650 MG SUPP.RECT PR (00:52)
[2022-07-23 01:11] LABS: Appearance Urine Clear; Color Urine Yellow; Glucose Urine UA Negative (Negative); Leukocyte Esterase Urine Negative (Negative); Nitrite Urine Negative (Negative); Specific Gravity - Urine <= 1.005 (1.005-1.025); Urine Blood Negative (Negative); Urine Ketones Negative (Negative); Urine Protein Negative (Neg-Trace)
[2022-07-23 01:44] LABS: COVID-19 Test Negative (Negative); IDNOW Serial# 08D9AD1C
[2022-07-23 01:50] LABS: IDNOW Serial# BCCEAD1C; Influenza A Negative (Negative); Influenza B2 Negative (Negative)
[2022-07-23 02:25] VITALS: BP 96/55; PULSE 93; RESP 15; TEMP 38.3; O2SAT 94
[2022-07-23 03:56] LABS: Lactic Acid 2.3 mmol/L (0.5-2.0)
[2022-07-23] MEDS: 0.9 % Sodium Chloride 1,000 ML 999 ML IV (04:03)
--- NOTE | 2022-07-23 04:07 | PC.NURSE ---
Patient is alert to self, confused at times. Patient temp 99.7. Lactic acid and blood cultures drawn, specimens sent to lab for processing. 22 G IV line established in Left hand. NS bolus infusing per MAR. Patient denies any pain discomfort, resting with her eyes closed. RR 18, O2 Sat 97 % RA. BP 129/86, P 92. Patient refused to be changed in a hospital attire. Call pugh placed within patient's reach.
[2022-07-23 04:29] VITALS: BP 119/56; PULSE 81; RESP 17; TEMP 38.1; O2SAT 94
[2022-07-23 04:37] LABS: C Reactive Protein 0.33 mg/dL (< or = 0.50)
[2022-07-23 04:59] LABS: Procalcitonin 0.02 ng/mL
[2022-07-23 05:44] LABS: Reflex Lactate? Lactic Acid Added
--- NOTE | 2022-07-23 05:53 | PC.NURSE ---
IV bolus of NS infused. Repeat lactic acid drawn per MD orders, specimen sent to lab. Patient is calm and cooperative with care at this time. Call pugh in patient's reach. Will continue to monitor.
[2022-07-23 06:00] VITALS: BP 108/48; PULSE 76; RESP 16; TEMP 37.2; O2SAT 94
[2022-07-23 06:25] LABS: ~Lactic Acid-LAB USE ONLY 1.6 mmol/L (0.5-2.0)
--- NOTE | 2022-07-23 08:04 | PC.NURSE ---
Last note written by this RN.
--- NOTE | 2022-07-23 08:13 | PC.NURSE ---
Spoke to [facility] at [facility] regarding IV, nurse to remove IV
== END 2022-07-23 08:01 | disposition home or self-care (01) ==
PROVIDERS: Emergency Provider Internal Medicine; PCP Internal Medicine
DX: S50.311A Abrasion of right elbow, initial encounter (principal); R56.9 Unspecified convulsions; M54.2 Cervicalgia; R51.9 Headache, unspecified; R07.89 Other chest pain; R50.9 Fever, unspecified; X58.XXXA Exposure to other specified factors, initial encounter; Y93.9 Activity, unspecified; Y92.9 Unspecified place or not applicable; Y99.9 Unspecified external cause status; Z20.822 Contact with and (suspected) exposure to COVID-19; Z20.828 Contact with and (suspected) exposure to other viral communicable diseases; Z79.899 Other long term (current) drug therapy; Z87.891 Personal history of nicotine dependence
CPT/HCPCS: 36415; 70450; 71045; 72125; 80053; 80164; 81003; 83605; 83735; 84145; 85025; 86140; 87040; 87502; 87635; 96360; 96372; 99285; J2060

== ENCOUNTER 2022-12-10 09:04 | Emergency (ER) | payer OTHER, SELFPAY ==
--- NOTE | ~2022-12-10 | CT_ITS ---
EXAMINATION: CT HEAD WITHOUT CONTRAST CLINICAL INFORMATION: Fall. Pain. COMPARISON: Previous head CT most recent July 2022 TECHNIQUE: Contiguous axial imaging was performed from the skull base to vertex without intravenous administration of contrast. This CT examination was performed using dose optimization techniques as appropriate, variously including the following: *Automated exposure control *Adjustment of mA and/or kV according to patient size (this includes techniques or standardized protocols for targeted exams where dose is matched to indication/reason for exam; i.e. extremities or head) *Use of iterative reconstruction technique DLP: 712 mGy-cm FINDINGS: There is no evidence of an extra-axial collection. There is no evidence of intra-axial or extra-axial hemorrhage. The ventricles and extra-axial CSF spaces are prominent suggestive of mild generalized atrophy. There is nonspecific periventricular white matter disease. No mass, mass effect or infarct. No skull fracture. Visualized paranasal sinuses, mastoid air cells and middle ears are clear. CT/CT head/brain wo IV con IMPRESSION: No acute findings. Mild generalized atrophy and nonspecific periventricular white matter disease.
--- NOTE | ~2022-12-10 | CT_ITS ---
EXAMINATION: CT CERVICAL SPINE WITHOUT CONTRAST CLINICAL INFORMATION: Fall COMPARISON: Previous CT most recent July 2022 TECHNIQUE: Axial images through the cervical spine without IV contrast. Sagittal and coronal reconstructions on the technologist workstation were performed. This CT examination was performed using dose optimization techniques as appropriate, variously including the following: *Automated exposure control *Adjustment of mA and/or kV according to patient size (this includes techniques or standardized protocols for targeted exams where dose is matched to indication/reason for exam; i.e. extremities or head) *Use of iterative reconstruction technique DLP: 466 mGy-cm FINDINGS: Bone alignment is normal. No fracture or dislocation. There is multilevel degenerative spondylosis and degenerative disc disease from C2-C3 to C6-C7. There are degenerative changes at the C1 dens articulation. Prevertebral soft tissues are normal. Visualized lung apices are clear. CT/CT cervical spine wo IV con IMPRESSION: Degenerative changes. No fracture or dislocation. Fleischner guidelines were followed.
[2022-12-10 09:16] VITALS: BP 146/79; BP 169/100; PULSE 80; PULSE 85; RESP 16; TEMP 36.7; O2SAT 97; O2SAT 98; BMI 36.5
--- NOTE | 2022-12-10 09:19 | ECG_ITS ---
Test Reason : Seizures Blood Pressure : / mmHG Vent. Rate : 073 BPM Atrial Rate : 073 BPM P-R Int : 116 ms QRS Dur : 102 ms QT Int : 406 ms P-R-T Axes : 003 005 008 degrees QTc Int : 447 ms Normal sinus rhythm Normal ECG When compared with ECG of 12-APR-2021 19:20, Nonspecific T wave abnormality no longer evident in Anterior leads Referred By: Angelita Quarles Electronically Signed By:DAWIT ORDONEZ
--- NOTE | 2022-12-10 09:23 | ED.SEIZURE ---
HPI - Seizure General Chief Complaint: Seizure Stated Complaint: Seizure Time Seen by Provider: 12/10/22 09:06 Source: patient, EMS and old records reviewed Mode of arrival: EMS Limitations: altered mental status History of Present Illness HPI Narrative: 62yo female with a PMH of schizoaffective disorder, hypertension, epilepsy on Depakote and topamax who presents to the ED s/p seizure in which her assisted living staff called EMS. She has an extensive history of seizures seeing Dr. Hull at [facility]. Patient reports being unconscious during the seizure and denies falling or head trauma. Sitting in chair once conscious again. She denies headache, dizziness, SOB, chest pain. Admits to fatigue. No other complaints on arrival to the ER. She states she has been compliant with her AEDs. MD complaint: seizure Onset (ago): hour(s) Description of Episode: loss of consciousness Witnessed: No Trauma: No Seizure History: Yes Place: Home Possible Precipitating Event: none Associated symptoms: denies other symptoms Treatments prior to arrival: none Related Data Home Medications Medication Instructions Recorded Confirmed acetaminophen 325 mg tablet 650 mg PO Q4H PRN Fever Or Pain 08/27/20 12/10/22 aluminum-mag hydroxide-simethicone 30 ml PO Q4H PRN Abdominal 08/27/20 12/10/22 200 mg-200 mg-20 mg/5 mL oral susp Discomfort divalproex 250 mg tablet,delayed 750 mg PO DAILY 08/27/20 12/10/22 release ibuprofen 600 mg tablet 600 mg PO Q6H PRN Pain 08/27/20 12/10/22 lorazepam 0.5 mg tablet 0.25 mg PO BID 08/27/20 12/10/22 rosuvastatin 20 mg tablet 20 mg PO BEDTIME 08/27/20 12/10/22 topiramate 100 mg tablet 100 mg PO BID 08/27/20 12/10/22 ketoconazole 2 % topical cream 1 appl topical BID 12/10/22 12/10/22 levocarnitine 330 mg tablet 990 mg PO BID 12/10/22 12/10/22 olanzapine 7.5 mg tablet 7.5 mg PO BEDTIME 12/10/22 12/10/22 sennosides 8.6 mg tablet (senna) 17.2 mg PO DAILY PRN Constipation 12/10/22 12/10/22 thiamine HCl (vitamin B1) 100 mg 100 mg PO DAILY 12/10/22 12/10/22 tablet Previous Rx's Medication Instructions Recorded cefuroxime axetil 250 mg tablet 250 mg PO BID 7 days #14 tabs 12/10/22 Allergies Allergy/AdvReac Type Severity Reaction Status Date / Time Penicillins Allergy Unknown Verified 12/15/20 10:23 Review of Systems Review of Systems: Constitutional: No Fever, No Chills, +fatigue ENT/Mouth: No sore throat, No Rhinorrhea, No Swallowing Difficulty Eyes: No Eye Pain, No Swelling, No Redness Cardiovascular: No Chest Pain, No SOB, No Orthopnea, No Edema Respiratory: No Cough, No Sputum, No Wheezing, No dyspnea Gastrointestinal: No N/V, No Diarrhea, No abdominal Pain Genitourinary: No Dysuria, No Urinary Frequency, No Hematuria Musculoskeletal: No joint pain, No Myalgias Skin: No Skin Lesions, No rash Neuro: No Weakness, No Numbness, No Dizziness, No Headache Psych: No Anxiety/Panic, No Depression Heme/Lymph: No Bruising, No Lymphadenopathy PMFSH Past Medical History Medical History Epilepsy HLD (hyperlipidemia) HTN (hypertension) Schizoaffective disorder, depressive type Seizure disorder Surgical History History of hysterectomy Social History Social History Household Members: Other Do you presently have visiting nurse or other home services: No Alcohol intake: never Patient Tobacco Use Status: Former Tobacco user Advance Directives: Yes Advance Directives on File: Yes Advance Directives Date on File: 08/30/20 service: No Current occupational status: disabled Current occupation: rt handed Physical Exam Vital Signs: Vital Signs: Last Vital Signs Temp 98.2 F 12/10/22 10:48 Pulse 70 12/10/22 10:48 Resp 12 12/10/22 10:48 BP 108/60 12/10/22 10:48 Pulse Ox 99 12/10/22 10:48 O2 Del Method Room Air 12/10/22 10:48 BMI result Body Mass Index 36.5 Appearance: Alert. Oriented X3. No acute distress. Head: normocephalic, atraumatic. Eyes: Pupils equal, round and reactive to light. no nystagmus ENT: Pharynx normal. No tonsillar swelling or exudate. Neck: Normal inspection. Neck supple. CVS: Normal heart rate and rhythm. Pulses normal. Respiratory: No respiratory distress. Breath sounds normal. Abdomen: Soft and nontender. +BS x4 Skin: Skin warm and dry. Normal skin color. Normal skin turgor. No rashes. Extremities: No lower extremity edema. No joint swelling. Neuro/psych: Oriented X 3. No motor deficit. No sensory deficit. CN II-XII intact. Normal speech. confused with mild tremor LLE and LUE which are baseline. Medications Administered Discontinued Medications Generic Name Dose Route Start Last Admin Trade Name Freq PRN Reason Stop Dose Admin Cefuroxime Axetil 500 mg 12/10/22 10:50 12/10/22 11:03 Cefuroxime Axetil 500 Mg Tablet PO 12/10/22 10:51 500 mg ONCE ONE Administration Medical Decision Making Medical Decision Making [facility] Narrative: This is a 62yo female with a PMH of schizoaffective disorder, hypertension, epilepsy on Depakote and topamax who presents to the ED s/p seizure. She is followed by Dr. Hull for seizures. Vitals stable upon arrival. On PE patient was AOx4. No signs of trauma. UA showed 2+ leukocyte esterase and high WBC. All other labs normal, normal EKG. Patients labs are consistent with an acute UTI. Patient given 500mg Ceftin PO and will be discharged with Ceftin 250mg BID x7days. Patient was also instructed to follow up with her neurologist due to frequent seizures. Patient was instructed to return to ER if symptoms persist or get worse. Differential Diagnosis Differential Diagnoses: The differential diagnosis associated with the presentation includes Electrolyte abnormality, breakthrough seizure, med noncompliance, infection (UTI, pneumonia), less likely meningitis or brain tumor. Admission/Observation Consideration of admission/observation: Escalation of care including admission/observation considered Lab Data [facility] Lab Attestation statement: I reviewed the patient's lab results. no leukocytosis, no signnificant rhabdo 12/10/22 10:07 12/10/22 10:07 Labs: Lab Results 12/10/22 Range/Units 10:07 WBC 7.6 (4.8-10.8) X10*3/uL RBC 4.93 (4.20-5.50) X10*6/uL Hgb 14.6 (12.0-16.0) g/dl Hct 44.2 (37.0-47.0) % MCV 89.7 (80.0-98.0) fL MCH 29.6 (27.0-33.0) pg MCHC 33.0 (31.0-35.0) g/dl RDW 13.4 (11.0-16.0) % Plt Count 199 D (160-400) X10*3/uL MPV 11.0 (9.4-12.3) fL Immature Gran % (Auto) 0.4 (0.0-0.4) % Neut % (Auto) 70.5 (45-73) % Lymph % (Auto) 19.9 L (20-40) % [place] % (Auto) 7.9 (2-11) % Eos % (Auto) 0.8 (0-4) % Baso % (Auto) 0.5 (0-2) % Lymph # (Auto) 1.5 (1.2-4.9) X10*3/uL [place] # (Auto) 0.6 (0.1-1.2) X10*3/uL Eos # (Auto) 0.1 (0.0-0.4) X10*3/uL Baso # (Auto) 0.0 (0.0-0.2) X10*3/uL Abs Immat Gran (auto) 0.03 (0.00-0.03) X10*3/uL Absolute Neuts (auto) 5.3 (2.0-8.3) x10*3/uL Absolute Nucleated RBC 0.000 (0.0-0.012) X10*3/uL Nucleated RBC % (auto) 0.0 (0.0-0.2) /100WBC Sodium 141 (135-145) mmol/L Potassium 3.7 (3.3-5.1) mmol/L Chloride 109 H (96-108) mmol/L Carbon Dioxide 24 (22-29) mmol/L Anion Gap 12 (12-20) BUN 7 L (9-16) mg/dL Creatinine 0.78 (0.5-1.4) mg/dL Estim Creat Clear Calc 84.2 Estimated GFR > 60 Random Glucose 114 (60-115) mg/dL Calcium 9.5 (8.4-10.2) mg/dL Magnesium 2.2 (1.6-2.6) mg/dL Total Bilirubin 0.2 (0.0-1.0) mg/dL Direct Bilirubin < 0.2 (0.0-0.5) mg/dL AST 19 (5-31) U/L ALT 13 (0-31) U/L Alkaline Phosphatase 128 H (39-117) U/L Total Creatine Kinase 154 H (26-140) U/L Total Protein 8.4 H (6.5-8.0) g/dL Albumin 4.4 (3.5-5.0) g/dL Urine Color Yellow Urine Appearance Clear Urine pH 7.0 (5.0-9.0) Ur Specific [place] <= 1.005 (1.005-1.025) Urine Protein Negative (Neg-Trace) mg/dL Urine Glucose (UA) Negative (Negative) mg/dL Urine Ketones Negative (Negative) mg/dL Urine Blood Negative (Negative) Urine Nitrite Negative (Negative) Ur Leukocyte Esterase Moderate (2+) H (Negative) Urine RBC 0-2 (0-2) /HPF Urine WBC 11-20 H (0-5) /HPF Ur Squamous Epith Cells 6-10 (0-2) /HPF Urine Bacteria None Seen (None Seen) Hyaline Casts 0-2 (0-2) /LPF Valproic Acid 62.4 (50.0-100.0) mcg/mL Independent Interpretation I performed an independent interpretation of an: EKG Interpretation: ekg w/ normal sinus rhythm, hr 73 bpm, normal [place] interval, no St segment elevations or depressions Independent Historian Clinical information obtained from an independent historian. History obtained from or confirmed by: EMS External Record Review External record reviewed: Inpatient record, Outpatient record, Prior outpatient labs and Prior outpatient radiology Tests considered The following testing was considered but not selected: considered CT head but no trauma Prescription Management I considered prescription management with: Other (ativan, anti-epileptic drug) Chronic Conditions Patient?s care impacted by: Other (epilepsy) Critical Care Time Critical Care Time Critical Care Time: No Discharge Plan Discharge Clinical Impression: Acute UTI Epileptic seizure Qualifiers: Epilepsy type: unspecified Intractability: not intractable Status epilepticus: without status epilepticus Qualified Code(s): G40.909 - Epilepsy, unspecified, not intractable, without status epilepticus Patient Disposition: Xfer LTC Transfer Details: Katelyn Priscilla Instructions: Urinary Tract Infection in Women (DC), Recurrent Seizures in Adults (ED) Additional Instructions: Labs indicative of acute UTI. Take antibiotic twice daily for 1 week. Also follow up with neurologist due to you recurrent seizures. If you develop new or worsening symptoms call 911 or come back to the ER for further evaluation. Prescriptions: New cefuroxime axetil 250 mg tablet 250 mg PO BID 7 Days Qty: 14 0RF No Action acetaminophen 325 mg Tablet 650 mg PO Q4H PRN (Reason: Fever Or Pain) divalproex 250 mg tablet,delayed release (DR/EC) 750 mg PO DAILY lorazepam 0.5 mg Tablet 0.25 mg PO BID alum-mag hydroxide-simeth 200-200-20 mg/5 mL Suspension 30 ml PO Q4H PRN (Reason: Abdominal Discomfort) ibuprofen 600 mg Tablet 600 mg PO Q6H PRN (Reason: Pain) topiramate 100 mg tablet 100 mg PO BID rosuvastatin 20 mg Tablet 20 mg PO BEDTIME sennosides [senna] 8.6 mg Tablet 17.2 mg PO DAILY PRN (Reason: Constipation) thiamine HCl (vitamin B1) 100 mg tablet 100 mg PO DAILY levocarnitine 330 mg tablet 990 mg PO BID olanzapine 7.5 mg tablet 7.5 mg PO BEDTIME ketoconazole 2 % cream 1 appl topical BID Referrals: Shira Elliott MD [Primary Care Provider] -
[2022-12-10 10:11] LABS: MANUAL DIFF FLAG NO
--- NOTE | 2022-12-10 10:11 | PC.NURSE ---
pt alert, and oriented to person and place. pt confused at baseline, does not seem to know where they live, but know that they are at the hospital now. They live at [facility]. pt found post ictal by staff this morning. Pt is unsure when they last had a seizure, but said a few days ago or a few weeks ago IV inserted and labs drawn. EKG done. seizure precautions in place- pads on bed rails, suction tubing ready.
[2022-12-10 10:13] LABS: Basophils Percent Auto 0.5 % (0-2); Eosinophils Absolute Auto 0.1 X10*3/uL (0.0-0.4); Eosinophils Percent Auto 0.8 % (0-4); Hematocrit 44.2 % (37.0-47.0); Hemoglobin 14.6 g/dl (12.0-16.0); Imm Gran Abs Auto 0.03 X10*3/uL (0.00-0.03); Imm Gran Pct Auto 0.4 % (0.0-0.4); Lymphocytes Absolute Auto 1.5 X10*3/uL (1.2-4.9); Lymphocytes Percent Auto 19.9 % (20-40); Mean Corpuscular Hemoglobin 29.6 pg (27.0-33.0); Mean Corpuscular Volume 89.7 fL (80.0-98.0); Monocytes Absolute Auto 0.6 X10*3/uL (0.1-1.2); Monocytes Percent Auto 7.9 % (2-11); Neutrophils Absolute Auto 5.3 x10*3/uL (2.0-8.3); Neutrophils Percent Auto 70.5 % (45-73); Platelet Count 199 X10*3/uL (160-400); Red Blood Count 4.93 X10*6/uL (4.20-5.50); Red Cell Distribution Width 13.4 % (11.0-16.0); White Blood Count 7.6 X10*3/uL (4.8-10.8)
[2022-12-10 10:14] LABS: Appearance Urine Clear; Color Urine Yellow; Glucose Urine UA Negative (Negative); Leukocyte Esterase Urine Moderate (2+) (Negative); Nitrite Urine Negative (Negative); Specific Gravity - Urine <= 1.005 (1.005-1.025); UMIC TRIGGER UACC YES; Urine Blood Negative (Negative); Urine Ketones Negative (Negative); Urine Protein Negative (Neg-Trace)
[2022-12-10 10:26] LABS: Bacteria Urine None Seen (None Seen); Hyaline Casts Urine 0-2 /LPF (0-2); RBC Urine 0-2 /HPF (0-2); UACC Culture Trigger YES
[2022-12-10 10:28] LABS: Valproate 62.4 mcg/mL (50.0-100.0)
[2022-12-10 10:30] LABS: Alanine Aminotransferase 13 U/L (0-31); Albumin Level 4.4 g/dL (3.5-5.0); Alkaline Phosphatase 128 U/L (39-117); Anion Gap 12 (12-20); Aspartate Amino Transferase 19 U/L (5-31); Bilirubin Direct < 0.2 mg/dL (0.0-0.5); Bilirubin Total 0.2 mg/dL (0.0-1.0); Blood Urea Nitrogen 7 mg/dL (9-16); Calcium 9.5 mg/dL (8.4-10.2); Carbon Dioxide 24 mmol/L (22-29); Chloride 109 mmol/L (96-108); Creatinine Clr Calc Pharmacy 84.2; Estimated Glomerular Filt Rate > 60; Glucose Random 114 mg/dL (60-115); Magnesium 2.2 mg/dL (1.6-2.6); Potassium 3.7 mmol/L (3.3-5.1); Sodium 141 mmol/L (135-145); Total Protein 8.4 g/dL (6.5-8.0)
[2022-12-10 10:48] VITALS: BP 108/60; PULSE 70; RESP 12; TEMP 36.8; O2SAT 99
--- NOTE | 2022-12-10 10:48 | PHA.MEDREC ---
Pharmacy Consult ? Medication Reconciliation Pharmacy has completed the medication reconciliation. MED REC COMPLETE USING LIST PROVIDED BY CARLA CORDOBA.
--- NOTE | 2022-12-10 11:54 | PC.NURSE ---
this nurse spoke to an RN at [facility] who found pt. the nurse said that there was an unwitnessed seizure and fall on to a concrete fall. This was not reported to the nurse from EMS initially. GAYLA Goldstein aware and CT scan of head is pending
[2022-12-10 13:40] VITALS: BP 139/55; PULSE 69; RESP 12; O2SAT 97
--- NOTE | 2022-12-10 13:42 | PC.NURSE ---
no seizure activity noted, pt reports no pain and has been resting comfortably awaiting CT scan results. purewick in place. VSS
== END 2022-12-10 19:41 ==
PROVIDERS: Physician Assistant; Emergency Provider Emergency Medicine; PCP Internal Medicine
DX: G40.909 Epilepsy, unspecified, not intractable, without status epilepticus (principal); N39.0 Urinary tract infection, site not specified; I10 Essential (primary) hypertension; E78.5 Hyperlipidemia, unspecified; F25.0 Schizoaffective disorder, bipolar type; Z79.899 Other long term (current) drug therapy; Z87.891 Personal history of nicotine dependence
CPT/HCPCS: 36415; 70450; 72125; 80048; 80076; 80164; 81001; 82550; 83735; 85025; 87086; 93005; 99284

== ENCOUNTER 2023-03-01 09:07 | Emergency (ER) | payer OTHER, SELFPAY ==
--- NOTE | ~2023-03-01 | CT_ITS ---
EXAMINATION: CT HEAD WITHOUT CONTRAST CT CERVICAL SPINE WITHOUT CONTRAST CLINICAL INFORMATION: Fall. COMPARISON: CT scans of the head and cervical spine 12/10/2022. TECHNIQUE: Multidetector CT imaging of the head and cervical spine was performed without the use of intravenous contrast. Coronal and sagittal reformatted images were generated at the technologist workstation. This CT examination was performed using dose optimization techniques as appropriate, variously including the following: *Automated exposure control *Adjustment of mA and/or kV according to patient size (this includes techniques or standardized protocols for targeted exams where dose is matched to indication/reason for exam; i.e. extremities or head) *Use of iterative reconstruction technique DLP: 1171 mGy-cm. FINDINGS: CT head: There is no evidence of acute intracranial hemorrhage or territorial infarction. No abnormal mass-effect or midline shift is seen. Garcia to white matter differentiation is well preserved. No extra-axial fluid collections are identified. The ventricles and sulci are mildly commensurately prominent. There are patchy areas of low-attenuation in the periventricular and subcortical white matter, most consistent with mild chronic microvascular ischemic changes. There is an equivocal area of low-attenuation in the left cerebellar hemisphere (image 15/80, series 3), which may be artifact versus an area of evolving ischemia. There are no acute osseous findings. There is mild hyperostosis frontalis interna. There is likely a scar in the high right frontal scalp, unchanged. There are no large scalp contusions or hematomas. There has been a right lens extraction. The mastoid air cells are well-aerated. There is mucoperiosteal thickening in the bilateral sphenoid sinuses. The frontal sinuses are hypoplastic bilaterally. The mastoid air cells and visualized portions of the paranasal sinuses are well-aerated. There are periapical lucencies around multiple teeth in the bilateral maxilla. CT cervical spine: There is a slight levoscoliosis. There is overall straightening of the normal cervical lordosis. There is multilevel narrowing of intervertebral disc height, which is most severe at C5-C6 and C6-C7, similar compared to prior imaging. Vertebral body heights maintained and no fractures are demonstrated. The lateral masses of C1 and C2 are normally aligned and the dens is intact. There are multilevel uncovertebral osteophytes contributing to foraminal narrowing, most severe on the right. The visualized upper lung higgins are well-aerated and there are no pneumothoraces. The thyroid gland appears normal. The study redemonstrates mildly prominent multilevel cervical lymph nodes, the most prominent in the right level IIA/IIB region measuring 1.[address]/CT cervical spine wo IV con IMPRESSION: CT Head: 1. There are no acute bleeds or territorial infarcts. No masses are demonstrated. 2. There is an equivocal area of low-attenuation in the left cerebellar hemisphere, which may be artifact versus an area of evolving ischemia. This could be further evaluated with MRI scan of the brain. 3. There is diffuse volume loss and there are chronic microvascular ischemic changes. CT Cervical Spine: 1. There are no acute fractures or subluxations. 2. There are multilevel spondylitic and facet arthropathic changes.
[2023-03-01 09:17] VITALS: BP 157/66; BP 192/102; PULSE 88; PULSE 98; RESP 12; TEMP 36.6; O2SAT 96; O2SAT 98; BMI 36.7
[2023-03-01 09:48] LABS: MANUAL DIFF FLAG NO
[2023-03-01 09:54] LABS: Basophils Percent Auto 0.3 % (0-2); Eosinophils Absolute Auto 0.1 X10*3/uL (0.0-0.4); Hematocrit 41.2 % (37.0-47.0); Hemoglobin 13.7 g/dl (12.0-16.0); Imm Gran Abs Auto 0.03 X10*3/uL (0.00-0.03); Imm Gran Pct Auto 0.4 % (0.0-0.4); Lymphocytes Absolute Auto 1.3 X10*3/uL (1.2-4.9); Lymphocytes Percent Auto 16.5 % (20-40); Mean Corpuscular HGB Conc 33.3 g/dl (31.0-35.0); Mean Corpuscular Hemoglobin 30.1 pg (27.0-33.0); Mean Corpuscular Volume 90.5 fL (80.0-98.0); Monocytes Absolute Auto 0.6 X10*3/uL (0.1-1.2); Monocytes Percent Auto 7.1 % (2-11); Neutrophils Absolute Auto 5.9 x10*3/uL (2.0-8.3); Neutrophils Percent Auto 74.7 % (45-73); Platelet Count 149 X10*3/uL (160-400); Red Blood Count 4.55 X10*6/uL (4.20-5.50); Red Cell Distribution Width 14.4 % (11.0-16.0); White Blood Count 7.9 X10*3/uL (4.8-10.8)
[2023-03-01 10:12] LABS: COVID-19 Test Negative (Negative); IDNOW Serial# 08D9AD1C
[2023-03-01 10:13] LABS: IDNOW Serial# BCCEAD1C; Influenza A Negative (Negative); Influenza B2 Negative (Negative)
[2023-03-01 10:14] LABS: Alanine Aminotransferase 11 U/L (0-31); Albumin Level 3.9 g/dL (3.5-5.0); Alkaline Phosphatase 124 U/L (39-117); Anion Gap 15 (12-20); Aspartate Amino Transferase 15 U/L (5-31); Bilirubin Total 0.2 mg/dL (0.0-1.0); Blood Urea Nitrogen 7 mg/dL (9-16); Calcium 9.1 mg/dL (8.4-10.2); Carbon Dioxide 19 mmol/L (22-29); Chloride 112 mmol/L (96-108); Creatinine Clr Calc Pharmacy 92.9; Estimated Glomerular Filt Rate > 60; Glucose Random 109 mg/dL (60-115); Potassium 3.5 mmol/L (3.3-5.1); Sodium 142 mmol/L (135-145); Total Protein 7.6 g/dL (6.5-8.0)
--- NOTE | 2023-03-01 11:14 | ED.FALL ---
HPI - Fall General Chief Complaint: Fall Stated Complaint: FALL + HEADSTRIKE SEIZURE Time Seen by Provider: 03/01/23 09:22 Source: patient, EMS and other Mode of arrival: EMS History of Present Illness HPI Narrative: 62-year-old female was brought in by EMS after sustaining an unwitnessed fall this morning in the long-term care facility. Patient does have a history of epileptic seizures and was noted to be postictal after the fall by the staff. They deny any loss of consciousness and patient has no history of blood thinners. Patient currently denies pain anywhere. Related Data Home Medications Medication Instructions Recorded Confirmed acetaminophen 325 mg tablet 650 mg PO Q4H PRN Fever Or Pain 08/27/20 01/03/23 aluminum-mag hydroxide-simethicone 30 ml PO Q4H PRN Abdominal 08/27/20 01/03/23 200 mg-200 mg-20 mg/5 mL oral susp Discomfort divalproex 250 mg tablet,delayed 750 mg PO DAILY 08/27/20 01/03/23 release ibuprofen 600 mg tablet 600 mg PO Q6H PRN Pain 08/27/20 01/03/23 lorazepam 0.5 mg tablet 0.25 mg PO BID 08/27/20 01/03/23 rosuvastatin 20 mg tablet 20 mg PO BEDTIME 08/27/20 01/03/23 topiramate 100 mg tablet 100 mg PO BID 08/27/20 01/03/23 ketoconazole 2 % topical cream 1 appl topical BID 12/10/22 12/10/22 levocarnitine 330 mg tablet 990 mg PO BID 12/10/22 01/03/23 olanzapine 7.5 mg tablet 7.5 mg PO BEDTIME 12/10/22 01/03/23 sennosides 8.6 mg tablet (senna) 17.2 mg PO DAILY PRN Constipation 12/10/22 01/03/23 thiamine HCl (vitamin B1) 100 mg 100 mg PO DAILY 12/10/22 01/03/23 tablet Previous Rx's Medication Instructions Recorded cefuroxime axetil 250 mg tablet 250 mg PO BID 7 days #14 tabs 12/10/22 Allergies Allergy/AdvReac Type Severity Reaction Status Date / Time Penicillins Allergy Unknown Verified 12/15/20 10:23 Review of Systems Review of Systems: Pertinent positives and negatives as stated in the HPI by collateral information as patient is a poor historian. [facility] Past Medical History Source: nursing notes reviewed Medical History HLD (hyperlipidemia) Seizure disorder HTN (hypertension) Schizoaffective disorder, depressive type Epilepsy Surgical History History of hysterectomy Social History Social History Household Members: Other Do you presently have visiting nurse or other home services: No Unable to assess alcohol history related to: Unknown Alcohol intake: never Patient Tobacco Use Status: Former Tobacco user Advance Directives: Yes Advance Directives on File: Yes Advance Directives Date on File: 08/30/20 service: No Current occupational status: disabled Current occupation: rt handed Physical Exam Vital Signs: Vital Signs: Last Vital Signs Temp 98.7 F 03/01/23 11:24 Pulse 79 03/01/23 11:24 Resp 13 03/01/23 11:24 BP 150/66 H 03/01/23 11:24 Pulse Ox 97 03/01/23 11:24 O2 Del Method Room Air 03/01/23 11:24 BMI result Body Mass Index 36.7 VITAL SIGNS: Reviewed. GENERAL: Well developed, well nourished, in no acute distress. HEAD: Normocephalic/superficial abrasion noted to the right temporal area EYES: PERRLA, EOMI EARS: Ext canals without abnormality NOSE: Nares patent bilateral OROPHARYNX: no oral lesions noted, posterior pharynx clear, poor dentition NECK: Supple, no adenopathy LUNGS: Normal breath sounds. No adventitious sounds or accessory muscle use. SpO2<96> CARDIOVASCULAR: Regular rate and rhythm without noted murmurs ABDOMEN: Soft, non-tender, non-distended with bowel sounds. MUSCULOSKELETAL: No tenderness, deformities, or effusions noted on gross inspection. EXTREMITIES: No cyanosis, clubbing or edema. SKIN: Inspection of the skin reveals no rashes, NEUROLOGIC: Alert and oriented x 4. Strength and sensation to light touch were grossly intact x 4. Medical Decision Making Medical Decision Making MDM Narrative: 62-year-old female with history and clinical presentation, DDX: Seizure, will rule out infection/anemia/electrolyte abnormalities as well as intracranial or cervical spine pathology. Patient is able to move all extremities and has no pelvis or chest wall discomfort. There are no focal deficits. I reviewed all investigations and hematologic indices are negative for leukocytosis, there is a mild left shift and chronically stable thrombocytopenia without anemia. Chemistry indices do not demonstrate an KIMBERLY and there is no electrolyte or liver enzyme derangements. Viral serology is negative for COVID-19/influenza. CT scan of the head does not demonstrate any intracranial pathology in suspect the site noted on CT scan is consistent with artifact as there are no focal findings, patient now ambulates at baseline. Patient does have history of urinary tract infection so awaiting urinalysis results. Urinalysis positive for leukocyte esterase, however when I review the urine culture from approximately 2 months ago when patient had similar urinalysis results it did not grow anything. So I will not empirically treat with antibiotics at this time. Patient is otherwise discharged back to the facility with recommendations that she follow up with her neurologist and/or primary care doctor on Friday. Differential Diagnosis Differential Diagnoses: The differential diagnosis associated with the presentation includes Please see the discussion above Admission/Observation Consideration of admission/observation: Escalation of care including admission/observation considered Please see the discussion above Lab Data MDM Lab Attestation statement: I reviewed the patient's lab results. Please see the discussion above 03/01/23 09:43 03/01/23 09:43 Labs: Lab Results 03/01/23 03/01/23 Range/Units 09:43 11:05 WBC 7.9 (4.8-10.8) X10*3/uL RBC 4.55 (4.20-5.50) X10*6/uL Hgb 13.7 (12.0-16.0) g/dl Hct 41.2 (37.0-47.0) % MCV 90.5 (80.0-98.0) fL MCH 30.1 (27.0-33.0) pg MCHC 33.3 (31.0-35.0) g/dl RDW 14.4 (11.0-16.0) % Plt Count 149 L D (160-400) X10*3/uL MPV 11.0 (9.4-12.3) fL Immature Gran % (Auto) 0.4 (0.0-0.4) % Neut % (Auto) 74.7 H (45-73) % Lymph % (Auto) 16.5 L (20-40) % [place] % (Auto) 7.1 (2-11) % Eos % (Auto) 1.0 (0-4) % Baso % (Auto) 0.3 (0-2) % Lymph # (Auto) 1.3 (1.2-4.9) X10*3/uL [place] # (Auto) 0.6 (0.1-1.2) X10*3/uL Eos # (Auto) 0.1 (0.0-0.4) X10*3/uL Baso # (Auto) 0.0 (0.0-0.2) X10*3/uL Abs Immat Gran (auto) 0.03 (0.00-0.03) X10*3/uL Absolute Neuts (auto) 5.9 (2.0-8.3) x10*3/uL Absolute Nucleated RBC 0.000 (0.0-0.012) X10*3/uL Nucleated RBC % (auto) 0.0 (0.0-0.2) /100WBC Sodium 142 (135-145) mmol/L Potassium 3.5 (3.3-5.1) mmol/L Chloride 112 H (96-108) mmol/L Carbon Dioxide 19 L (22-29) mmol/L Anion Gap 15 (12-20) BUN 7 L (9-16) mg/dL Creatinine 0.71 (0.5-1.4) mg/dL Estim Creat Clear Calc 92.9 Estimated GFR > 60 Random Glucose 109 (60-115) mg/dL Calcium 9.1 (8.4-10.2) mg/dL Total Bilirubin 0.2 (0.0-1.0) mg/dL AST 15 (5-31) U/L ALT 11 (0-31) U/L Alkaline Phosphatase 124 H (39-117) U/L Total Protein 7.6 (6.5-8.0) g/dL Albumin 3.9 (3.5-5.0) g/dL Urine Color Yellow Urine Appearance Clear Urine pH 7.0 (5.0-9.0) Ur Specific [place] 1.010 (1.005-1.025) Urine Protein Negative (Neg-Trace) mg/dL Urine Glucose (UA) Negative (Negative) mg/dL Urine Ketones Negative (Negative) mg/dL Urine Blood Negative (Negative) Urine Nitrite Negative (Negative) Ur Leukocyte Esterase Moderate (2+) H (Negative) Urine RBC 0-2 (0-2) /HPF Urine WBC 11-20 H (0-5) /HPF Ur Squamous Epith Cells 6-10 (0-2) /HPF Urine Bacteria Trace (None Seen) Hyaline Casts 0-2 (0-2) /LPF COVID-19 (LEONIDAS) Negative (Negative) COVID-19 Clin Com See Note Influenza Type A (KURT) Negative (Negative) Influenza Type B (KURT) Negative (Negative) Influenza A & B Note See Note Radiology Impression Discussion of test interpretation with radiology: I have reviewed the radiologist's reading. Radiologist Impression: Please see the discussion above External Record Review External record reviewed: Outpatient record, Prior outpatient labs and Prior outpatient radiology Chronic Conditions Patient?s care impacted by: Other Epileptic seizures Critical Care Time Critical Care Time Critical Care Time: Yes Total Critical Care Time: 30 Attestation: I personally attest to this time spent taking care of the patient. Discharge Plan Discharge Clinical Impression: Epileptic seizure, Superficial abrasion of right eye region Patient Disposition: Xfer Other Instructions: Epilepsy (ED) Additional Instructions: 1. Resume all home medications as prescribed. 2. Please follow-up with your primary care doctor and/or your neurologist on Friday. Return to the ER for any worsening symptoms. Prescriptions: No Action acetaminophen 325 mg Tablet 650 mg PO Q4H PRN (Reason: Fever Or Pain) divalproex 250 mg tablet,delayed release (DR/EC) 750 mg PO DAILY lorazepam 0.5 mg Tablet 0.25 mg PO BID alum-mag hydroxide-simeth 200-200-20 mg/5 mL Suspension 30 ml PO Q4H PRN (Reason: Abdominal Discomfort) ibuprofen 600 mg Tablet 600 mg PO Q6H PRN (Reason: Pain) topiramate 100 mg tablet 100 mg PO BID rosuvastatin 20 mg Tablet 20 mg PO BEDTIME sennosides [senna] 8.6 mg Tablet 17.2 mg PO DAILY PRN (Reason: Constipation) thiamine HCl (vitamin B1) 100 mg tablet 100 mg PO DAILY levocarnitine 330 mg tablet 990 mg PO BID olanzapine 7.5 mg tablet 7.5 mg PO BEDTIME ketoconazole 2 % cream 1 appl topical BID cefuroxime axetil 250 mg tablet 250 mg PO BID 7 Days Qty: 14 0RF
[2023-03-01 11:18] LABS: Appearance Urine Clear; Color Urine Yellow; Glucose Urine UA Negative (Negative); Leukocyte Esterase Urine Moderate (2+) (Negative); Nitrite Urine Negative (Negative); UMIC TRIGGER UACC YES; Urine Blood Negative (Negative); Urine Ketones Negative (Negative); Urine Protein Negative (Neg-Trace)
[2023-03-01 11:23] LABS: Bacteria Urine Trace (None Seen); Hyaline Casts Urine 0-2 /LPF (0-2); RBC Urine 0-2 /HPF (0-2); UACC Culture Trigger YES
[2023-03-01 11:24] VITALS: BP 150/66; PULSE 79; RESP 13; TEMP 37.1; O2SAT 97
[2023-03-01 14:09] VITALS: BP 183/72; PULSE 77; RESP 16; TEMP 37; O2SAT 99
== END 2023-03-01 16:15 | disposition other institution (70) ==
PROVIDERS: Emergency Provider Student in an Organized Health Care Education/Training Program
DX: G40.909 Epilepsy, unspecified, not intractable, without status epilepticus (principal); S00.211A Abrasion of right eyelid and periocular area, initial encounter; I10 Essential (primary) hypertension; D69.6 Thrombocytopenia, unspecified; X58.XXXA Exposure to other specified factors, initial encounter; Y93.9 Activity, unspecified; Y92.89 Other specified places as the place of occurrence of the external cause; Y99.9 Unspecified external cause status; Z11.52 Encounter for screening for COVID-19
CPT/HCPCS: 51701; 70450; 72125; 80053; 81001; 85025; 87086; 87502; 87635; 99284

== ENCOUNTER 2023-03-04 22:38 | Inpatient (IN) | payer OTHER, SELFPAY ==
--- NOTE | ~2023-03-04 | CT_ITS ---
EXAMINATION: CT ABDOMEN AND PELVIS WITHOUT CONTRAST CLINICAL INFORMATION: Pain, nausea and vomiting COMPARISON: IV contrast-enhanced study earlier today. TECHNIQUE: Multidetector volumetric imaging was performed from the superior aspect of the liver through the pubic symphysis. Gastrografin was administered. Sagittal and coronal reformatted images were obtained on the technologist's workstation. This CT examination was performed using dose optimization techniques as appropriate, variously including the following: *Automated exposure control *Adjustment of mA and/or kV according to patient size (this includes techniques or standardized protocols for targeted exams where dose is matched to indication/reason for exam; i.e. extremities or head) *Use of iterative reconstruction technique DLP: 743 mGy-cm FINDINGS: BINDING CUTTER: Multiple dilated small bowel loops again seen. Stomach is not as distended as on earlier ssas developer. Air now seen in the hepatic and splenic flexures and portion of the proximal transverse colon. Interval contrast filled urinary bladder. LUNG BASES: Bibasilar atelectasis. Nonenlarged heart. No pericardial effusion. LIVER, GALLBLADDER, AND BILIARY TREE: The liver is normal in size, shape, and attenuation. No focal hepatic lesion or biliary ductal dilatation is present. The gallbladder contains multiple calcified gallstones but is otherwise unremarkable in appearance. PANCREAS: Unremarkable. SPLEEN: Unremarkable. ADRENAL GLANDS: Unremarkable. KIDNEYS,URETERS, BLADDER: The kidneys are normal in size, shape, and attenuation. Residual contrast identified within the intrarenal collecting systems, underfilled ureters and under distended urinary bladder. Bladder wall thickening, slightly focally prominent anteriorly on 3:81, 8:60. On coronal 7:45, focal thickening has 7 mm polypoid appearance. No hydronephrosis, hydroureter, or calculi seen. No perinephric stranding. GASTROINTESTINAL TRACT: Distended stomach with air contrast fluid level and dependent posterior debris. Multiple dilated small bowel loops measuring up to 3.8 cm. Proximal dilated small bowel loops are contrast filled, mid dilated small bowel loops are fluid-filled and distal nondilated small bowel loops are seen. There is no definite zone of transition. A small amount of fluid is identified about dilated contrast-filled left lower quadrant small bowel loop, coronal 7:39. Appendix not seen with certainty. Fluid identified in the right hemicolon, portions of the transverse and descending colon consistent with diarrhea. No recognizable small or large bowel wall thickening. ABDOMINAL WALL: No significant hernia is appreciated. LYMPH NODES: Normal. VASCULAR: Atherosclerotic calcifications nonaneurysmal aorta. Slightly reduced caliber inferior vena cava, correlate with volume status. PELVIC VISCERA: Unremarkable. Phleboliths. PERITONEUM: Small amount of free pelvic fluid in addition to fluid around dilated left lower quadrant small bowel loop. OSSEOUS STRUCTURES: 8 mm right L3 sclerotic focus adjacent to 2.1 cm L3 hypodensity, possibly hemangioma. CT/CT abdomen pelvis wo IV con IMPRESSION: Redemonstration persistently dilated small bowel loops without definite zone of transition identified at this time. Small amount of fluid around left lower quadrant bowel loop and in the pelvis, possibly slightly increased from previous. Colonic fluid, question diarrhea. Continued close surveillance recommended. Potential 7 mm bladder wall lesion. Urologic follow-up recommended. Cholelithiasis without other CT evidence of acute cholecystitis. Reduced caliber inferior vena cava, correlate with volume status. Fleischner guidelines were followed.
--- NOTE | ~2023-03-04 | CT_ITS ---
EXAMINATION: CT ABDOMEN AND PELVIS WITH CONTRAST CLINICAL INFORMATION: Abdominal pain. COMPARISON: None available. TECHNIQUE: Multidetector volumetric images were obtained from the superior aspect of the liver through the pubic symphysis following administration 100 mL of Omnipaque 350 intravenous contrast. Sagittal and coronal reformatted images were obtained on the technologist's workstation. Oral contrast: No This CT examination was performed using dose optimization techniques as appropriate, variously including the following: *Automated exposure control *Adjustment of mA and/or kV according to patient size (this includes techniques or standardized protocols for targeted exams where dose is matched to indication/reason for exam; i.e. extremities or head) *Use of iterative reconstruction technique DLP: 713 mGy-cm FINDINGS: LUNG BASES: The visualized lung bases are unremarkable. LIVER, GALLBLADDER, AND BILIARY TREE: The liver is normal in size, shape, and attenuation. No focal hepatic lesion or biliary ductal dilatation is present. Multiple gallstones are noted. PANCREAS: Unremarkable. SPLEEN: Unremarkable. ADRENAL GLANDS: Unremarkable. KIDNEYS AND URETERS: The kidneys are normal in size, shape, and attenuation. No hydronephrosis, hydroureter, or calculi seen. No perinephric stranding. BLADDER: Unremarkable. GASTROINTESTINAL TRACT: Prominent mildly dilated proximal to mid small bowel loops measuring up to 3.2 cm vascular tapering to normal caliber/decompressed mid to distal small bowel. There is gastric distention with an air-fluid level. ABDOMINAL WALL: No significant hernia is appreciated. LYMPH NODES: Normal. VASCULAR: There is atherosclerotic plaque of the abdominal aorta and proximal branches. PELVIC VISCERA: Unremarkable. OSSEOUS STRUCTURES: Unremarkable. CT/CT abdomen pelvis w IV con IMPRESSION: 1. Prominent mildly dilated proximal to mid small bowel loops measuring up to 3.2 cm with tapering to normal caliber/decompressed mid to distal small bowel. Findings possibly related to enteritis ileus versus early/developing small bowel obstruction. Correlation and follow-up needed. 2. Cholelithiasis. Fleischner guidelines were followed.
[2023-03-04 22:46] VITALS: BP 128/72; BP 192/93; PULSE 84; PULSE 91; RESP 16; TEMP 37.2; O2SAT 96; O2SAT 98; BMI 35.7
--- NOTE | 2023-03-04 23:49 | ECG_ITS ---
Test Reason : NAUSEA/VOMITTING Blood Pressure : / mmHG Vent. Rate : 077 BPM Atrial Rate : 077 BPM P-R Int : 142 ms QRS Dur : 100 ms QT Int : 398 ms P-R-T Axes : 043 043 024 degrees QTc Int : 450 ms Normal sinus rhythm Normal ECG When compared with ECG of 10-DEC-2022 09:48, No significant change was found Referred By: Hui Ace Electronically Signed By:ELVIA CUBA
[2023-03-05] VITALS (11 sets, daily range): BP systolic 120–157; BP diastolic 45–89; PULSE 78–111; RESP 12–20; TEMP 37–37.2; O2SAT 94–97; BMI 36.5
[2023-03-05 00:27] LABS: Appearance Urine Cloudy; Color Urine Yellow; Glucose Urine UA Negative (Negative); Leukocyte Esterase Urine Small (1+) (Negative); Nitrite Urine Negative (Negative); UMIC TRIGGER UACC YES; Urine Blood Negative (Negative); Urine Ketones 15 mg/dL (Negative); Urine Protein Negative (Neg-Trace)
--- NOTE | 2023-03-05 00:38 | MHC.EDTECH ---
At this time Tech changed PT over into hospital attire, EKG, urines and swab collected and sent to lab. Before PT blood work can be collected PT vomited about 500ml. Vomit was brown and red in color. PT was cleaned and changed again.
[2023-03-05 00:41] LABS: Bacteria Urine Trace (None Seen); Hyaline Casts Urine 0-2 /LPF (0-2); RBC Urine 0-2 /HPF (0-2); UACC Culture Trigger YES
[2023-03-05 00:54] LABS: COVID-19 Test Negative (Negative); IDNOW Serial# 08D9AD1C
--- NOTE | 2023-03-05 00:57 | ED.NAVMDI ---
HPI - Nausea/Vomiting/Diarrhea General Chief complaint: Nausea/Vomiting/Diarrhea Stated complaint: Vomiting Time Seen by Provider: 03/04/23 23:36 Source: patient Mode of arrival: EMS History of Present Illness HPI Narrative: 62-year-old female with seizure history presents with feeling unwell, dizzy, nausea/vomiting but denies any abdominal discomfort. Patient reports that she had a couple seizures today. Related Data Home Medications Medication Instructions Recorded Confirmed acetaminophen 325 mg tablet 650 mg PO Q4H PRN Fever Or Pain 08/27/20 01/03/23 aluminum-mag hydroxide-simethicone 30 ml PO Q4H PRN Abdominal 08/27/20 01/03/23 200 mg-200 mg-20 mg/5 mL oral susp Discomfort divalproex 250 mg tablet,delayed 750 mg PO DAILY 08/27/20 01/03/23 release ibuprofen 600 mg tablet 600 mg PO Q6H PRN Pain 08/27/20 01/03/23 lorazepam 0.5 mg tablet 0.25 mg PO BID 08/27/20 01/03/23 rosuvastatin 20 mg tablet 20 mg PO BEDTIME 08/27/20 01/03/23 topiramate 100 mg tablet 100 mg PO BID 08/27/20 01/03/23 ketoconazole 2 % topical cream 1 appl topical BID 12/10/22 12/10/22 levocarnitine 330 mg tablet 990 mg PO BID 12/10/22 01/03/23 olanzapine 7.5 mg tablet 7.5 mg PO BEDTIME 12/10/22 01/03/23 sennosides 8.6 mg tablet (senna) 17.2 mg PO DAILY PRN Constipation 12/10/22 01/03/23 thiamine HCl (vitamin B1) 100 mg 100 mg PO DAILY 12/10/22 01/03/23 tablet Previous Rx's Medication Instructions Recorded cefuroxime axetil 250 mg tablet 250 mg PO BID 7 days #14 tabs 12/10/22 Allergies Allergy/AdvReac Type Severity Reaction Status Date / Time Penicillins Allergy Unknown Verified 12/15/20 10:23 Review of Systems Review of Systems: Pertinent positives and negatives as stated in HPI PMFSH Past Medical History Source: nursing notes reviewed Medical History HLD (hyperlipidemia) Seizure disorder HTN (hypertension) Schizoaffective disorder, depressive type Epilepsy Surgical History History of hysterectomy Social History Social History Household Members: Other Do you presently have visiting nurse or other home services: No Unable to assess alcohol history related to: Unknown Alcohol intake: never Patient Tobacco Use Status: Former Tobacco user Smoked in Last 30 Days: No Use of substances other than those prescribed or required for medical reasons: No Advance Directives: Yes Advance Directives on File: Yes Advance Directives Date on File: 08/30/20 Patient : No service: No Current occupational status: disabled Current occupation: rt handed Physical Exam Vital Signs: Vital Signs: Last Vital Signs Temp 99.0 F 03/05/23 05:45 Pulse 83 03/05/23 05:45 Resp 12 03/05/23 05:45 BP 151/64 H 03/05/23 05:45 Pulse Ox 95 03/05/23 05:45 O2 Del Method Room Air 03/05/23 05:45 BMI result Body Mass Index 35.7 VITAL SIGNS: Reviewed. GENERAL: Elevated BMI, Well developed, well nourished, in no acute distress. HEAD: Normocephalic/atraumatic EYES: PERRLA, EOMI EARS: Ext canals without abnormality NOSE: Nares patent bilateral OROPHARYNX: no oral lesions noted, posterior pharynx clear NECK: Supple, no adenopathy LUNGS: Normal breath sounds. No adventitious sounds or accessory muscle use. SpO2<96> CARDIOVASCULAR: Regular rate and rhythm without noted murmurs ABDOMEN: Soft, mild tenderness on palpation but no rebound, non-distended with bowel sounds. MUSCULOSKELETAL: No tenderness, deformities, or effusions noted on gross inspection. EXTREMITIES: No cyanosis, clubbing or edema. SKIN: Inspection of the skin reveals no rashes NEUROLOGIC: Alert and oriented x 2. Strength and sensation to light touch were grossly intact x 4. Medications Administered Discontinued Medications Generic Name Dose Route Start Last Admin Trade Name Freq PRN Reason Stop Dose Admin Diatrizoate Meglum/Diatrizoate Sod 30 ml 03/05/23 06:01 03/05/23 06:02 Diatrizoate Meglumine, Sodium 30 Ml Solution PO 03/05/23 06:02 30 ml ONCE ONE Administration Sodium Chloride 1,000 mls @ 999 mls/hr 03/05/23 03:15 03/05/23 06:03 Ns IV 03/05/23 04:15 Infused .Q1H1M RENETTA Infusion Cefepime HCl 1 gm/ Sodium 50 mls @ 100 mls/hr 03/05/23 04:53 03/05/23 06:31 Chloride IV 03/05/23 05:22 Infused ONCE ONE Infusion Iohexol 100 ml 03/05/23 02:48 03/05/23 02:49 Iohexol 350 Mg/Ml 100 Ml Infus..Btl IV 03/05/23 02:49 100 ml ONCE ONE Administration Ondansetron HCl 4 mg 03/05/23 04:37 03/05/23 04:49 Ondansetron Hcl 4 Mg/2 Ml Vial IVPUSH 03/05/23 04:38 4 mg ONCE ONE Administration Medical Decision Making Medical Decision Making MDM Narrative: 62-year-old female with history and clinical presentation, DDX: Gastroenteritis, obstruction, cholecystitis, diverticulitis, urinary tract infection I reviewed all investigations and hematologic indices demonstrate a leukocytosis and left shift but there is no knee me or thrombocytopenia. Chemistry and disease negative for KIMBERLY and there are no electrolyte or liver enzyme derangements. Lactic acid is elevated but this is likely secondary to dehydration/vomiting, patient received 500 cc of normal saline and IV fluids. Urinalysis does not demonstrate any suspicion for UTI. They seizure medications are within therapeutic range. COVID-[address] scan does not demonstrate any findings consistent with cholecystitis but there is cholelithiasis, no evidence of renal colic or diverticulitis. Otherwise, there are mildly dilated small-bowel loops. And my interpretation is that this is a small-bowel obstruction. There appears to be a transition within the mid abdomen. 0502: I discussed case with General surgery, Dr. Larson who strongly recommends oral contrast. 0620: Patient has completed oral contrast Signed out to Dr Cohn to follow up with CT scan Differential Diagnosis Differential Diagnoses: The differential diagnosis associated with the presentation includes Please see the discussion above Admission/Observation Consideration of admission/observation: Escalation of care including admission/observation considered Please see the discussion above Consult Healthcare Provider Management of the patient was discussed with: Circuits Engineer Please see the discussion above Lab Data MDM Lab Attestation statement: I reviewed the patient's lab results. Please see the discussion above 03/05/23 01:26 03/05/23 01:26 Labs: Lab Results 03/05/23 03/05/23 03/05/23 Range/Units 00:16 01:26 02:16 WBC 14.1 H (4.8-10.8) X10*3/uL RBC 5.04 (4.20-5.50) X10*6/uL Hgb 15.1 (12.0-16.0) g/dl Hct 45.2 (37.0-47.0) % MCV 89.7 (80.0-98.0) fL MCH 30.0 (27.0-33.0) pg MCHC 33.4 (31.0-35.0) g/dl RDW 14.6 (11.0-16.0) % Plt Count 180 (160-400) X10*3/uL MPV 11.5 (9.4-12.3) fL Immature Gran % (Auto) 0.4 (0.0-0.4) % Neut % (Auto) 85.6 H (45-73) % Lymph % (Auto) 9.3 L (20-40) % [place] % (Auto) 4.0 (2-11) % Eos % (Auto) 0.6 (0-4) % Baso % (Auto) 0.1 (0-2) % Lymph # (Auto) 1.3 (1.2-4.9) X10*3/uL [place] # (Auto) 0.6 (0.1-1.2) X10*3/uL Eos # (Auto) 0.1 (0.0-0.4) X10*3/uL Baso # (Auto) 0.0 (0.0-0.2) X10*3/uL Abs Immat Gran (auto) 0.06 H (0.00-0.03) X10*3/uL Absolute Neuts (auto) 12.1 H (2.0-8.3) x10*3/uL Absolute Nucleated RBC 0.000 (0.0-0.012) X10*3/uL Nucleated RBC % (auto) 0.0 (0.0-0.2) /100WBC Sodium 144 (135-145) mmol/L Potassium 3.7 (3.3-5.1) mmol/L Chloride 111 H (96-108) mmol/L Carbon Dioxide 19 L (22-29) mmol/L Anion Gap 18 (12-20) BUN 10 (9-16) mg/dL Creatinine 0.76 (0.5-1.4) mg/dL Estim Creat Clear Calc 85.5 Estimated GFR > 60 Random Glucose 132 H (60-115) mg/dL Lactic Acid 2.2 H* (0.5-2.0) mmol/L Lactic Acid F/U @ 2Hr (0.5-2.0) mmol/L Calcium 9.5 (8.4-10.2) mg/dL Total Bilirubin 0.2 (0.0-1.0) mg/dL AST 19 (5-31) U/L ALT 15 (0-31) U/L Alkaline Phosphatase 113 (39-117) U/L Total Protein 8.5 H (6.5-8.0) g/dL Albumin 4.4 (3.5-5.0) g/dL Urine Color Yellow Urine Appearance Cloudy Urine pH 6.0 (5.0-9.0) Ur Specific [place] 1.020 (1.005-1.025) Urine Protein Negative (Neg-Trace) mg/dL Urine Glucose (UA) Negative (Negative) mg/dL Urine Ketones 15 (Negative) mg/dL Urine Blood Negative (Negative) Urine Nitrite Negative (Negative) Ur Leukocyte Esterase Small (1+) H (Negative) Urine RBC 0-2 (0-2) /HPF Urine WBC 6-10 H (0-5) /HPF Ur Squamous Epith Cells 3-5 (0-2) /HPF Urine Bacteria Trace (None Seen) Hyaline Casts 0-2 (0-2) /LPF Valproic Acid 75.9 (50.0-100.0) mcg/mL COVID-19 ([facility]) Negative (Negative) COVID-19 Clin Com See Note 03/05/23 Range/Units 05:00 WBC (4.8-10.8) X10*3/uL RBC (4.20-5.50) X10*6/uL Hgb (12.0-16.0) g/dl Hct (37.0-47.0) % MCV (80.0-98.0) fL MCH (27.0-33.0) pg MCHC (31.0-35.0) g/dl RDW (11.0-16.0) % Plt Count (160-400) X10*3/uL MPV (9.4-12.3) fL Immature Gran % (Auto) (0.0-0.4) % Neut % (Auto) (45-73) % Lymph % (Auto) (20-40) % [place] % (Auto) (2-11) % Eos % (Auto) (0-4) % Baso % (Auto) (0-2) % Lymph # (Auto) (1.2-4.9) X10*3/uL [place] # (Auto) (0.1-1.2) X10*3/uL Eos # (Auto) (0.0-0.4) X10*3/uL Baso # (Auto) (0.0-0.2) X10*3/uL Abs Immat Gran (auto) (0.00-0.03) X10*3/uL Absolute Neuts (auto) (2.0-8.3) x10*3/uL Absolute Nucleated RBC (0.0-0.012) X10*3/uL Nucleated RBC % (auto) (0.0-0.2) /100WBC Sodium (135-145) mmol/L Potassium (3.3-5.1) mmol/L Chloride (96-108) mmol/L Carbon Dioxide (22-29) mmol/L Anion Gap (12-20) BUN (9-16) mg/dL Creatinine (0.5-1.4) mg/dL Estim Creat Clear Calc Estimated GFR Random Glucose (60-115) mg/dL Lactic Acid (0.5-2.0) mmol/L Lactic Acid F/U @ 2Hr 1.1 (0.5-2.0) mmol/L Calcium (8.4-10.2) mg/dL Total Bilirubin (0.0-1.0) mg/dL AST (5-31) U/L ALT (0-31) U/L Alkaline Phosphatase (39-117) U/L Total Protein (6.5-8.0) g/dL Albumin (3.5-5.0) g/dL Urine Color Urine Appearance Urine pH (5.0-9.0) Ur Specific [place] (1.005-1.025) Urine Protein (Neg-Trace) mg/dL Urine Glucose (UA) (Negative) mg/dL Urine Ketones (Negative) mg/dL Urine Blood (Negative) Urine Nitrite (Negative) Ur Leukocyte Esterase (Negative) Urine RBC (0-2) /HPF Urine WBC (0-5) /HPF Ur Squamous Epith Cells (0-2) /HPF Urine Bacteria (None Seen) Hyaline Casts (0-2) /LPF Valproic Acid (50.0-100.0) mcg/mL COVID-19 ([facility]) (Negative) COVID-19 Clin Com Independent Interpretation I performed an independent interpretation of an: EKG Interpretation: Normal size rib go HR-77, no STEMI, OR/QRS/QTC are within normal limits. Radiology Impression Discussion of test interpretation with radiology: I have reviewed the radiologist's reading. Radiologist Impression: Please see the discussion above External Record Review External record reviewed: Outpatient record, Prior outpatient labs and Prior outpatient radiology Chronic Conditions Patient?s care impacted by: Other Schizoaffective, seizure disorder Critical Care Time Critical Care Time Critical Care Time: Yes Total Critical Care Time: 45 Attestation: I personally attest to this time spent taking care of the patient. Discharge Plan Discharge Clinical Impression: Nausea and vomiting Patient Disposition: Still a Patient Prescriptions: No Action acetaminophen 325 mg Tablet 650 mg PO Q4H PRN (Reason: Fever Or Pain) divalproex 250 mg tablet,delayed release (DR/EC) 750 mg PO DAILY lorazepam 0.5 mg Tablet 0.25 mg PO BID alum-mag hydroxide-simeth 200-200-20 mg/5 mL Suspension 30 ml PO Q4H PRN (Reason: Abdominal Discomfort) ibuprofen 600 mg Tablet 600 mg PO Q6H PRN (Reason: Pain) topiramate 100 mg tablet 100 mg PO BID rosuvastatin 20 mg Tablet 20 mg PO BEDTIME sennosides [senna] 8.6 mg Tablet 17.2 mg PO DAILY PRN (Reason: Constipation) thiamine HCl (vitamin B1) 100 mg tablet 100 mg PO DAILY levocarnitine 330 mg tablet 990 mg PO BID olanzapine 7.5 mg tablet 7.5 mg PO BEDTIME ketoconazole 2 % cream 1 appl topical BID cefuroxime axetil 250 mg tablet 250 mg PO BID 7 Days Qty: 14 0RF
[2023-03-05 01:32] LABS: MANUAL DIFF FLAG NO
[2023-03-05 01:33] LABS: Basophils Percent Auto 0.1 % (0-2); Eosinophils Absolute Auto 0.1 X10*3/uL (0.0-0.4); Eosinophils Percent Auto 0.6 % (0-4); Hematocrit 45.2 % (37.0-47.0); Hemoglobin 15.1 g/dl (12.0-16.0); Imm Gran Abs Auto 0.06 X10*3/uL (0.00-0.03); Imm Gran Pct Auto 0.4 % (0.0-0.4); Lymphocytes Absolute Auto 1.3 X10*3/uL (1.2-4.9); Lymphocytes Percent Auto 9.3 % (20-40); Mean Corpuscular HGB Conc 33.4 g/dl (31.0-35.0); Mean Corpuscular Volume 89.7 fL (80.0-98.0); Mean Platelet Volume 11.5 fL (9.4-12.3); Monocytes Absolute Auto 0.6 X10*3/uL (0.1-1.2); Neutrophils Absolute Auto 12.1 x10*3/uL (2.0-8.3); Neutrophils Percent Auto 85.6 % (45-73); Platelet Count 180 X10*3/uL (160-400); Red Blood Count 5.04 X10*6/uL (4.20-5.50); Red Cell Distribution Width 14.6 % (11.0-16.0); White Blood Count 14.1 X10*3/uL (4.8-10.8)
[2023-03-05 01:53] LABS: Alanine Aminotransferase 15 U/L (0-31); Albumin Level 4.4 g/dL (3.5-5.0); Alkaline Phosphatase 113 U/L (39-117); Anion Gap 18 (12-20); Aspartate Amino Transferase 19 U/L (5-31); Bilirubin Total 0.2 mg/dL (0.0-1.0); Blood Urea Nitrogen 10 mg/dL (9-16); Calcium 9.5 mg/dL (8.4-10.2); Carbon Dioxide 19 mmol/L (22-29); Chloride 111 mmol/L (96-108); Creatinine Clr Calc Pharmacy 85.5; Estimated Glomerular Filt Rate > 60; Glucose Random 132 mg/dL (60-115); Potassium 3.7 mmol/L (3.3-5.1); Sodium 144 mmol/L (135-145); Total Protein 8.5 g/dL (6.5-8.0); Valproate 75.9 mcg/mL (50.0-100.0)
--- NOTE | 2023-03-05 02:21 | PC.NURSE ---
pt a very hard stick. no blood return from hand IV, 3 RNs and 2 ED Techs attempt blood draws for labs/cultures. able to obtain lactic and 1st set of cultures only. phlebotomy called. will be up for blood draw. pt at CT while waiting for lab to assist
[2023-03-05 02:42] LABS: Lactic Acid 2.2 mmol/L (0.5-2.0)
[2023-03-05] MEDS: iohexoL 350 MG/ML 100 ML INFUS..BTL IV (02:49)
--- NOTE | 2023-03-05 03:12 | MHC.EDTECH ---
PT vomited about 300ml at this time. PT cleaned and changed.
[2023-03-05] MEDS: 0.9 % Sodium Chloride 1,000 ML 999 ML IV (03:38)
--- NOTE | 2023-03-05 03:55 | PC.NURSE ---
unable to obtain 2nd set of cultures. multiple attempts by RNs, Techs and phlebotomy. pt getting very agitated and refused more attempts. MD hahn
[2023-03-05 04:21] LABS: Reflex Lactate? Lactic Acid Added
[2023-03-05] MEDS: ondansetron HCL 4 MG/2 ML VIAL IVPUSH (04:49)
--- NOTE | 2023-03-05 05:05 | PC.NURSE ---
Addendum entered by Johanne Martinez 03/05/23 06:06: 22g Original Note: lactic and 2nd set of cultures obtained. 2nd IV 20g placed to L AC
[2023-03-05 05:20] LABS: ~Lactic Acid-LAB USE ONLY 1.1 mmol/L (0.5-2.0)
--- NOTE | 2023-03-05 05:43 | PC.NURSE ---
ABX admin late. pt in the bathroom washing up after incont BM with SURGICAL PATHOLOGIST
--- NOTE | 2023-03-05 05:49 | MHC.EDTECH ---
PT has BM at this time
[2023-03-05] MEDS: cefEPime HCl 1 GM in 0.9 % Sodium Chloride 50 ML IV (05:51)
[2023-03-05] MEDS: Diatrizoate Meglumine, Sodium 30 ML SOLUTION PO (06:02)
--- NOTE | 2023-03-05 06:04 | PC.NURSE ---
pt drinking IV contrast drink, must be done with pitcher by 0800. pt understands instructions to drink it all and report any nausea
--- NOTE | 2023-03-05 06:51 | PC.NURSE ---
pt completed oral contrast drink. no n/v
--- NOTE | 2023-03-05 09:51 | PHA.MEDREC ---
Pharmacy Consult ? Medication Reconciliation Pharmacy has completed the medication reconciliation. List from [facility]
--- NOTE | 2023-03-05 10:05 | PC.NURSE ---
MRI screening form completed and faxed to mri
--- NOTE | 2023-03-05 12:45 | PC.NURSE ---
Patient observed to be having seizure activity , provider aware new orders obtained
[2023-03-05] MEDS: LORazepam 2 MG/ML VIAL 1 MG IVPUSH (12:46)
[2023-03-05] MEDS: levETIRAcetam in NaCl (iso-os) 1,000 MG/100 ML PIGGYBACK 400 MG IV (12:48)
[2023-03-05] MEDS: Lactated Ringers 1,000 ML 125 ML IVCONT ×2 (12:55→20:49)
--- NOTE | 2023-03-05 12:59 | P.CONGS_ITS ---
History of Present Illness Consult details Consult date: 03/05/23 Requesting physician: Hui Ace Narrative: 62-year-old female with PMH significant for seizures who presented to the ED with feeling unwell, dizzy, nausea/vomiting. She is a very poor history and history was obtained from EMR and patient herself. She reports she just felt unwell and like she needed to come. She had a few episodes of vomiting at home and multiple episodes of loose stools. She denies abdominal pain. Patient reportedly had a couple seizures prior to presentation. Work up was significant for a leukocytosis of 14.1, lactic acidosis which resolved with IVF and CT scan without oral contrast showed mildly dilated small bowel loops. Repeat CT scan with oral contrast was requested. Patient tolerated the oral contrast and has not had any further nausea or vomiting. She continues to pass flatus and have loose stools. Repeat CT scan with oral contrast showed mildly dilated small bowel loops without transition point. Review of Systems 2 Constitutional: Constitutional: Denies chills and Denies fever(s) Gastrointestinal: Gastrointestinal: Reports as per HPI, Denies hematochezia and Denies hematemesis Integumentary/Breasts: Skin/Breast: Denies rash and Denies jaundice PMFSH Past Medical History Medical History HLD (hyperlipidemia) Seizure disorder HTN (hypertension) Schizoaffective disorder, depressive type Epilepsy Surgical History Surgical History History of hysterectomy Social History Social History Household Members: Other Do you presently have visiting nurse or other home services: No Unable to assess alcohol history related to: Unknown Alcohol intake: never Patient Tobacco Use Status: Former Tobacco user Smoked in Last 30 Days: No Use of substances other than those prescribed or required for medical reasons: No Advance Directives: Yes Advance Directives on File: Yes Advance Directives Date on File: 08/30/20 Patient : No service: No Current occupational status: disabled Current occupation: rt handed Meds Allergies Allergy/AdvReac Type Severity Reaction Status Date / Time Penicillins Allergy Unknown Verified 12/15/20 10:23 Active Medications: Current Medications Levetiracetam (Keppra) 1,000 mg in 100 mls @ 400 mls/hr IV Q12H [facility] Last Admin: 03/05/23 12:48 Dose: 400 mls/hr Lactated Ringer's (Lr) 1,000 mls @ 125 mls/hr IVCONT .Q8H [facility] Last Admin: 03/05/23 12:55 Dose: 125 mls/hr Home Medications Medication Instructions Recorded Confirmed Last Taken Type acetaminophen 325 mg tablet 650 mg PO Q4H PRN Fever Or Pain 08/27/20 03/05/23 Unknown History aluminum-mag hydroxide-simethicone 30 ml PO Q4H PRN Abdominal 08/27/20 03/05/23 Unknown History 200 mg-200 mg-20 mg/5 mL oral susp Discomfort ibuprofen 600 mg tablet 600 mg PO Q6H PRN Pain 08/27/20 03/05/23 Unknown History lorazepam 0.5 mg tablet 0.25 mg PO BID 08/27/20 03/05/23 Unknown History rosuvastatin 20 mg tablet 20 mg PO BEDTIME 08/27/20 03/05/23 Unknown History topiramate 100 mg tablet 100 mg PO BID 08/27/20 03/05/23 Unknown History ketoconazole 2 % topical cream 1 appl topical BID 12/10/22 03/05/23 Unknown History levocarnitine 330 mg tablet 990 mg PO BID 12/10/22 03/05/23 Unknown History olanzapine 7.5 mg tablet 7.5 mg PO BEDTIME 12/10/22 03/05/23 Unknown History sennosides 8.6 mg tablet (senna) 17.2 mg PO DAILY PRN Constipation 12/10/22 03/05/23 Unknown History thiamine HCl (vitamin B1) 100 mg 100 mg PO DAILY 12/10/22 03/05/23 Unknown History tablet divalproex 500 mg tablet,delayed 500 mg PO BID 03/05/23 03/05/23 Unknown History release Physical Exam 2 Vital Signs: Vital Signs: Last Vital Signs Temp 99.0 F 03/05/23 05:45 Pulse 111 H 03/05/23 12:00 Resp 20 03/05/23 12:00 BP 130/45 L 03/05/23 12:00 Pulse Ox 97 03/05/23 12:00 O2 Del Method Room Air 03/05/23 12:00 BMI result Body Mass Index 35.7 Const: General: comfortable, no acute distress and alert Resp: Effort & Inspection: normal respiratory effort GI: Inspection: Yes distended (mild) Palpation (GI): Soft to palpation, nontender, no guarding and not rigid Percussion: Yes normal to percussion Skin: General skin exam: no rashes or lesions noted Neuro: General: moves all extremities Results Labs 03/05/23 01:26 03/05/23 01:26 Labs: Abnormal lab results 03/05/23 03/05/23 03/05/23 Range/Units 00:16 01:26 02:16 WBC 14.1 H (4.8-10.8) X10*3/uL Neut % (Auto) 85.6 H (45-73) % Lymph % (Auto) 9.3 L (20-40) % Abs Immat Gran (auto) 0.06 H (0.00-0.03) X10*3/uL Absolute Neuts (auto) 12.1 H (2.0-8.3) x10*3/uL Chloride 111 H (96-108) mmol/L Carbon Dioxide 19 L (22-29) mmol/L Random Glucose 132 H (60-115) mg/dL Lactic Acid 2.2 H* (0.5-2.0) mmol/L Total Protein 8.5 H (6.5-8.0) g/dL Ur Leukocyte Esterase Small (1+) H (Negative) Urine WBC 6-10 H (0-5) /HPF Short CBC 03/05/23 Range/Units 01:26 WBC 14.1 H (4.8-10.8) X10*3/uL Hgb 15.1 (12.0-16.0) g/dl Hct 45.2 (37.0-47.0) % Plt Count 180 (160-400) X10*3/uL BMP 03/05/23 01:26 Sodium 144 Potassium 3.7 Chloride 111 H Carbon Dioxide 19 L BUN 10 Creatinine 0.76 Calcium 9.5 Liver Function 03/05/23 Range/Units 01:26 Total Bilirubin 0.2 (0.0-1.0) mg/dL AST 19 (5-31) U/L ALT 15 (0-31) U/L Alkaline Phosphatase 113 (39-117) U/L Albumin 4.4 (3.5-5.0) g/dL Urine 03/05/23 Range/Units 00:16 Urine Color Yellow Urine Appearance Cloudy Urine pH 6.0 (5.0-9.0) Ur Specific [place] 1.020 (1.005-1.025) Urine Protein Negative (Neg-Trace) mg/dL Urine Glucose (UA) Negative (Negative) mg/dL All other labs normal. Imaging Abdomen CT scan report/results: report reviewed and image reviewed Assessment and Plan (1) Ileus, unspecified: Status: Acute (2) Seizure: Status: Acute Plan 62 year old female who presented with multiple complaints found to have mildly dilated small bowel loops on CT scan. Clinical picture overall more suggestive of gastroenteritis with ileus vs SBO and she was nontoxic appearing. I was discussing with patient trialing oral intake and if she tolerated this, she was stable for discharge from surgical standpoint however upon returning with water the patient was seizing. ED provider and staff notified immediately. She is being admitted to the hospitalist service for further management. Recommend continuing supportive measures in regards to gastroenteritis for now, diet as tolerated. CT scan also with note of potential 7 mm bladder wall lesion and urologic f/u recommended. Procedures Date of Service Date of Service: 03/05/23
--- NOTE | 2023-03-05 13:44 | PC.NURSE ---
Resting in bed, respirations even and unlabored. No further seizure activity noted
--- NOTE | 2023-03-05 14:29 | P.HPHOSP_ITS ---
History of Present Illness Date of Service: 03/05/23 Attending physician on admission: Patsy Reyez Chief Complaint: Nausea vomiting, dizziness Pt is a 62-year-old female with a PMH significant for?seizure disorder, HTN, HLD, and schizoafective disorder who presents to the ED for evaluation of nausea, vomiting, and loose stools for the past 1-2 days. Patient is a resident of [facility] and is currently post-ictal after having a witnessed tonic-clonic seizure in the ED. Pt is alert and oriented x3, but unaware of why she is in the hospital and what symptoms she had yesterday. Currently denies any acute medical complaints and says she feels alright . HPI taken primarily from chart and provider review. Yesterday patient claimed she felt ?unwell , with dizziness, nausea, vomiting, and multiple loose stools. Denies any enedelia abdominal pain. She also apparently had one or more seizures yesterday at her residence.?In the ED CT of abd and pelvis concerned for possible SBO, but repeat with contrast more suggestive of ileus with possible gastroenteritis. General surgery was consulted, who discussed with the patient and if she could tolerate oral intake she was stable for discharge from a surgical standpoint, however patient then was witnessed to have a seizure when water was brought to her for oral intake trial. It was then suggested to admit the pt for monitoring and ensuring she could tolerate oral fluids to take her medications. In the ED pt with slightly elevated temperature of 99.0, tacycardia up to 111, hypertension up to 192/93. Labs were significant for leukocytosis of 14.1, lactic acid 2.2 with repeat 1.1. Electrolytes largely WNL. Renal function baseline. Hepatic function baseline. Valproic acid levels therapeutic. UA likely negative for UTI. CT of abdomen and pelvis w/ contrast with prominent mildly dilated proximal to mid small bowel loops, findings possibly related to enteritis ileus versus early/developing small-bowel obstruction. Repeat CT of abdomen and pelvis wo contrast redemonstrated persistently dilated small bowel loops without definite zone of transition identified. Also felt potential 7 mm bladder wall lesion, suggest urologic follow-up. EKG demonstrated normal sinus rhythm without evidence of ST elevations or depressions. Pt was treated with IVF, ondansetron, cefepime, Ativan, and Keppra. Pt will be admitted to the hospital under observation for treatment and further evaluation of likely ileus with gastroenteritis, as well as ensuring patient can tolerate p.o. fluids. Review of Systems 2 Review of Systems: Nausea, vomiting Diarrhea Generally feeling ?unwell? PMFSH Medical History HLD (hyperlipidemia) Seizure disorder HTN (hypertension) Schizoaffective disorder, depressive type Epilepsy Surgical History History of hysterectomy Social History Household Members: Other Do you presently have visiting nurse or other home services: No Unable to assess alcohol history related to: Unknown Alcohol intake: never Patient Tobacco Use Status: Former Tobacco user Smoked in Last 30 Days: No Use of substances other than those prescribed or required for medical reasons: No Advance Directives: Yes Advance Directives on File: Yes Advance Directives Date on File: 08/30/20 Patient : No service: No Current occupational status: disabled Current occupation: rt handed Meds Allergies Allergy/AdvReac Type Severity Reaction Status Date / Time Penicillins Allergy Unknown Verified 12/15/20 10:23 Active Medications: Current Medications Levetiracetam (Keppra) 1,000 mg in 100 mls @ 400 mls/hr IV Q12H [facility] Last Infusion: 03/05/23 13:37 Dose: Infused Lactated Ringer's (Lr) 1,000 mls @ 125 mls/hr IVCONT .Q8H [facility] Last Admin: 03/05/23 12:55 Dose: 125 mls/hr Home Medications Medication Instructions Recorded Confirmed Last Taken Type acetaminophen 325 mg tablet 650 mg PO Q4H PRN Fever Or Pain 08/27/20 03/05/23 Unknown History aluminum-mag hydroxide-simethicone 30 ml PO Q4H PRN Abdominal 08/27/20 03/05/23 Unknown History 200 mg-200 mg-20 mg/5 mL oral susp Discomfort ibuprofen 600 mg tablet 600 mg PO Q6H PRN Pain 08/27/20 03/05/23 Unknown History lorazepam 0.5 mg tablet 0.25 mg PO BID 08/27/20 03/05/23 Unknown History rosuvastatin 20 mg tablet 20 mg PO BEDTIME 08/27/20 03/05/23 Unknown History topiramate 100 mg tablet 100 mg PO BID 08/27/20 03/05/23 Unknown History ketoconazole 2 % topical cream 1 appl topical BID 12/10/22 03/05/23 Unknown History levocarnitine 330 mg tablet 990 mg PO BID 12/10/22 03/05/23 Unknown History olanzapine 7.5 mg tablet 7.5 mg PO BEDTIME 12/10/22 03/05/23 Unknown History sennosides 8.6 mg tablet (senna) 17.2 mg PO DAILY PRN Constipation 12/10/22 03/05/23 Unknown History thiamine HCl (vitamin B1) 100 mg 100 mg PO DAILY 12/10/22 03/05/23 Unknown History tablet divalproex 500 mg tablet,delayed 500 mg PO BID 03/05/23 03/05/23 Unknown History release Physical Exam 2 Vital Signs and Narrative: Vital Signs: Last Vital Signs Temp 99.0 F 03/05/23 05:45 Pulse 111 H 03/05/23 12:00 Resp 20 03/05/23 12:00 BP 130/45 L 03/05/23 12:00 Pulse Ox 97 03/05/23 12:00 O2 Del Method Room Air 03/05/23 12:00 BMI result Body Mass Index 35.7 Constitutional: Alert, mildly confused, in no acute distress. Mental Status: Oriented to person, place, and time, but not to situation. Eyes: Pupils are equal, round, and reactive to light. Ear, Nose, and Throat: Oropharynx clear, mucous membranes moist. Ears and nose without deformities. Trachea midline. Respiratory: Clear to auscultation bilaterally. No wheezing, rales, or rhonchi. Cardiovascular: S1, S2 regular. No murmurs, rubs, or gallops. Gastrointestinal: Abdomen soft, non-tender, non-distended. Normal bowel sounds. Neurologic: Cranial nerves II-XII are grossly intact bilaterally. No focal neurological deficits. Moves all extremities spontaneously. Skin: Warm, dry. Musculoskeletal: No cyanosis or clubbing. Extremities: No edema. Psychiatric: Normal mood and affect. Results Labs 03/05/23 01:26 03/05/23 01:26 Labs: Laboratory Results - last 24 hr 12/27/23 12/27/23 12/27/23 00:16 01:26 02:16 MCV 89.7 MCH 30.0 MCHC 33.4 RDW 14.6 Plt Count 180 MPV 11.5 Immature Gran % (Auto) 0.4 Neut % (Auto) 85.6 H Lymph % (Auto) 9.3 L [place] % (Auto) 4.0 Eos % (Auto) 0.6 Baso % (Auto) 0.1 Lymph # (Auto) 1.3 [place] # (Auto) 0.6 Eos # (Auto) 0.1 Baso # (Auto) 0.0 Abs Immat Gran (auto) 0.06 H Absolute Neuts (auto) 12.1 H Absolute Nucleated RBC 0.000 Nucleated RBC % (auto) 0.0 Anion Gap 18 Estim Creat Clear Calc 85.5 Estimated GFR > 60 Random Glucose 132 H Lactic Acid 2.2 H* Lactic Acid F/U @ 2Hr Calcium 9.5 Total Bilirubin 0.2 AST 19 ALT 15 Alkaline Phosphatase 113 Total Protein 8.5 H Albumin 4.4 Urine Color Yellow Urine Appearance Cloudy Urine pH 6.0 Ur Specific [place] 1.020 Urine Protein Negative Urine Glucose (UA) Negative Urine Ketones 15 Urine Blood Negative Urine Nitrite Negative Ur Leukocyte Esterase Small (1+) H Urine RBC 0-2 Urine WBC 6-10 H Ur Squamous Epith Cells 3-5 Urine Bacteria Trace Hyaline Casts 0-2 Valproic Acid 75.9 COVID-19 ([facility]AS) Negative COVID-19 Clin Com See Note 03/05/23 05:00 MCV MCH MCHC RDW Plt Count MPV Immature Gran % (Auto) Neut % (Auto) Lymph % (Auto) [place] % (Auto) Eos % (Auto) Baso % (Auto) Lymph # (Auto) [place] # (Auto) Eos # (Auto) Baso # (Auto) Abs Immat Gran (auto) Absolute Neuts (auto) Absolute Nucleated RBC Nucleated RBC % (auto) Anion Gap Estim Creat Clear Calc Estimated GFR Random Glucose Lactic Acid Lactic Acid F/U @ 2Hr 1.1 Calcium Total Bilirubin AST ALT Alkaline Phosphatase Total Protein Albumin Urine Color Urine Appearance Urine pH Ur Specific [place] Urine Protein Urine Glucose (UA) Urine Ketones Urine Blood Urine Nitrite Ur Leukocyte Esterase Urine RBC Urine WBC Ur Squamous Epith Cells Urine Bacteria Hyaline Casts Valproic Acid COVID-19 ([facility]IDAS) COVID-19 Clin Com Imaging Radiologist's Impressions: Impressions Abdomen/Pelvis CT 03/05/23 02:45 IMPRESSION: 1. Prominent mildly dilated proximal to mid small bowel loops measuring up to 3.2 cm with tapering to normal caliber/decompressed mid to distal small bowel. Findings possibly related to enteritis ileus versus early/developing small bowel obstruction. Correlation and follow-up needed. 2. Cholelithiasis. Fleischner guidelines were followed. Abdomen/Pelvis CT 03/05/23 08:33 IMPRESSION: Redemonstration persistently dilated small bowel loops without definite zone of transition identified at this time. Small amount of fluid around left lower quadrant bowel loop and in the pelvis, possibly slightly increased from previous. Colonic fluid, question diarrhea. Continued close surveillance recommended. Potential 7 mm bladder wall lesion. Urologic follow-up recommended. Cholelithiasis without other CT evidence of acute cholecystitis. Reduced caliber inferior vena cava, correlate with volume status. Fleischner guidelines were followed. Assessment and Plan (1) Ileus, unspecified: Status: Acute (2) Seizure: Status: Acute Plan Pt is a 62-year-old female with a PMH significant for?seizure disorder, HTN, HLD, and schizoafective disorder who presents to the ED for evaluation of nausea, vomiting, and loose stools for the past 1-2 days. Pt will be admitted to the hospital under observation for treatment and further evaluation of likely ileus. Pt will also need monitoring for continued seizure activity and ensuring she can tolerate p.o. fluids. Seizure disorder Seemingly poorly controlled Patient reports seizure/s yesterday, witnessed seizure in the ED Given Ativan and loaded with Keppra in the ED Continue divalproex Seizure precautions Ileus with possible gastroenteritis CT with contrast more suggestive of ileus than SBO Will be placed on clear liquid diet pending bedside swallow eval GI panel IVF Symptomatic treatment for nausea, vomiting, diarrhea, any abdominal pain Leukocytosis WBC 14.1 Likely reactionary, not due to sepsis No clear source of bacterial infection Tachycardia likely secondary to seizure activity, ileus Lactic acidosis, resolved Lactic acid 2.2 Likely secondary to seizure activity, not sepsis No clear source of bacterial infection, pt appears non-toxic, comfortable No indication to continue antibiotics at this time Full Code Attending:?Dr. Reyez DVT Prophylaxis: Lovenox Pt will be admitted to the hospital under observation for treatment and further evaluation of likely ileus. Pt will also need monitoring for recent seizure activity and ensuring she can tolerate p.o. fluids. Quality Stroke Does the patient have a stroke diagnosis?: No VTE Prior VTE?: No VTE Risk Level:: Medical - moderate - high VTE Device Contraindication: Treatment Not Indicated VTE Drug Contraindication: N/A - Med Ordered
--- NOTE | 2023-03-05 15:53 | PC.NURSE ---
Denies pain or discomfort, no seizure activity noted
[2023-03-05] MEDS: Enoxaparin Sodium 40 MG/0.4 ML SYRINGE SUBCUT (16:37)
[2023-03-05] MEDS: 0.9 % Sodium Chloride Flush 3 ML SYRINGE IVFLUSH (16:37)
[2023-03-05] MEDS: Thiamine HCL 100 MG TABLET PO (16:37)
[2023-03-05] MEDS: Topiramate 100 MG TABLET PO (22:08)
[2023-03-05] MEDS: Divalproex Sodium 500 MG TABLET.DR PO (22:10)
[2023-03-06] MEDS: levETIRAcetam in NaCl (iso-os) 1,000 MG/100 ML PIGGYBACK 400 MG IV ×2 (00:17→12:55)
[2023-03-06 03:32] VITALS: BP 103/51; PULSE 69; RESP 18; TEMP 36.1; O2SAT 96
[2023-03-06] MEDS: Lactated Ringers 1,000 ML 125 ML IVCONT (04:39)
[2023-03-06 07:26] VITALS: BP 113/55; PULSE 68; RESP 16; TEMP 36.1; O2SAT 95
[2023-03-06] MEDS: Topiramate 100 MG TABLET PO ×2 (08:53→21:41)
[2023-03-06] MEDS: Divalproex Sodium 500 MG TABLET.DR PO ×2 (08:53→21:41)
[2023-03-06] MEDS: LORazepam 0.5 MG TABLET 0.25 MG PO ×2 (08:53→21:41)
[2023-03-06] MEDS: Thiamine HCL 100 MG TABLET PO (08:54)
[2023-03-06 09:07] LABS: Hematocrit 38.7 % (37.0-47.0); Hemoglobin 12.9 g/dl (12.0-16.0); Mean Corpuscular HGB Conc 33.3 g/dl (31.0-35.0); Mean Corpuscular Hemoglobin 30.1 pg (27.0-33.0); Mean Corpuscular Volume 90.2 fL (80.0-98.0); Mean Platelet Volume 11.6 fL (9.4-12.3); Platelet Count 157 X10*3/uL (160-400); Red Blood Count 4.29 X10*6/uL (4.20-5.50); White Blood Count 8.7 X10*3/uL (4.8-10.8)
[2023-03-06 09:44] LABS: Adenovirus F 40/41 Not Detected (Not Detect.); Astrovirus Not Detected (Not Detect.); Campylobacter Not Detected (Not Detect.); Cryptosporidium Not Detected (Not Detect.); Cyclospora cayetanensis Not Detected (Not Detect.); E. coli EAEC Not Detected (Not Detect.); E. coli EPEC Not Detected (Not Detect.); E. coli ETEC Not Detected (Not Detect.); E. coli STEC Not Detected (Not Detect.); Entamoeba histolytica Not Detected (Not Detect.); Giardia lamblia Not Detected (Not Detect.); Norovirus GI/GII Not Detected (Not Detect.); Plesiomonas shigelloides Not Detected (Not Detect.); Rotavirus A Not Detected (Not Detect.); Salmonella Not Detected (Not Detect.); Sapovirus Not Detected (Not Detect.); Shigella sp./EIEC Not Detected (Not Detect.); Vibrio Not Detected (Not Detect.); Vibrio Cholerae Not Detected (Not Detect.); Yersinia enterocolitica Not Detected (Not Detect.)
[2023-03-06 10:18] LABS: Anion Gap 11 (12-20); Blood Urea Nitrogen 7 mg/dL (9-16); Calcium 8.3 mg/dL (8.4-10.2); Carbon Dioxide 19 mmol/L (22-29); Chloride 112 mmol/L (96-108); Creatinine Clr Calc Pharmacy 91.3; Estimated Glomerular Filt Rate > 60; Glucose Random 116 mg/dL (60-115); Potassium 3.2 mmol/L (3.3-5.1); Sodium 139 mmol/L (135-145)
--- NOTE | 2023-03-06 11:28 | MHC.CM.PN ---
RODOLFO 03/06 PT IS A RESIDENT AT [facility]. PT AMBULATES INDEP. PT ABLE TO ANSWER SIMPLE QUESTIONS. HCP/DAUGHTER LISA UPDATED AND PLAN IS TO RETURN TO [place] ON DC. MESSAGE LEFT FOR ADM. AT THE [facility] TO RETURN CALL FOR UPDATE. + HCP ON FILE. PCP DR. PICKARD. DP: PT WILL RETURN TO [facility] ON DC VIA BLS TRANSPORT. CM WILLCONTINUE TO FOLLOW FOR ANY CHANGE IN DC PLAN/NEEDS
--- NOTE | 2023-03-06 13:28 | P.PNIM_ITS ---
Subjective Subjective Date of Service: 03/06/23 Interval History: Being followed for gastroenteritis and seizure, patient is sitting comfortably on chair offers no acute complaints no recurrent seizures since hospitalization tolerated clear liquid diet, denies abdominal pain, no nausea, no vomiting, no diarrhea. Review of Systems All other system reviewed and negative. Physical Exam 2 Vital Signs: Vital Signs: Last Vital Signs Temp 96.9 F 03/06/23 07:26 Pulse 68 03/06/23 07:26 Resp 16 03/06/23 07:26 BP 113/55 L 03/06/23 07:26 Pulse Ox 95 03/06/23 07:26 O2 Del Method Room Air 03/06/23 07:26 BMI result Body Mass Index 36.5 Const: Other: Constitutional : A lert, awake in no acute distress Ne ck : Normal inspec tion, Supple Cardi ovascular : RRR, S 1 S2 it Respirator y : clear to ausc ultation, no crac kles, no wheezes o r rhonchi Gastroin testinal: soft, N on tender, bowel s ounds audible. Ski n : Warm/Dry, No r dmitry Neurological : Speech clear, No focal deficit Psy ch appropriate aff ect A worry Objective Data Active Medications Acetaminophen (Acetaminophen 325 Mg Tablet) 650 mg PO Q6H PRN PRN Reason: Pain, Mild (Pain Scale 1-3) Al Hydroxide/Mg Hydroxide (Magnesium Hydrox/Alum Hydrox 30 Ml Oral.Susp) 30 ml PO Q4H PRN PRN Reason: Abdominal Discomfort Atorvastatin Calcium (Atorvastatin Calcium 80 Mg Tablet) 80 mg PO BEDTIME [facility] Last Admin: 03/05/23 22:05 Dose: Not Given Documented By: NICKY Non-Admin Reason: pt drowsy Benzonatate (Benzonatate 100 Mg Capsule) 100 mg PO TID PRN PRN Reason: Cough Divalproex Sodium (Divalproex Sodium 500 Mg Tablet.Dr) 500 mg PO BID [facility] Last Admin: 03/06/23 08:53 Dose: 500 mg Documented By: ELOISE Enoxaparin Sodium (Enoxaparin Sodium 40 Mg/0.4 Ml Syringe) 40 mg SUBCUT Q24H [facility] Last Admin: 03/05/23 16:37 Dose: 40 mg Documented By: EHNRIQUE Ibuprofen (Ibuprofen 600 Mg Tablet) 600 mg PO Q6H PRN PRN Reason: Pain, Mild (Pain Scale 1-3) Loperamide HCl (Loperamide Hcl 2 Mg Capsule) 2 mg PO Q6H PRN PRN Reason: Diarrhea Lorazepam (Lorazepam 0.5 Mg Tablet) 0.25 mg PO BID [facility] Last Admin: 03/06/23 08:53 Dose: 0.25 mg Documented By: ELOISE Melatonin (Melatonin 3 Mg Tablet) 6 mg PO BEDTIME PRN PRN Reason: Insomnia Olanzapine (Olanzapine 7.5 Mg Tablet) 7.5 mg PO BEDTIME [facility] Last Admin: 03/05/23 22:06 Dose: Not Given Documented By: NICKY Non-Admin Reason: pt drowsy Ondansetron HCl (Ondansetron Hcl 4 Mg/2 Ml Vial) 4 mg IVPUSH Q8H PRN PRN Reason: Nausea and Vomiting Sodium Chloride (0.9 % Sodium Chloride Flush 3 Ml Syringe) 3 ml IVFLUSH QSHIFT [facility] Last Admin: 03/06/23 07:29 Dose: Not Given Documented By: ELOISE Non-Admin Reason: IV Running Thiamine HCl (Thiamine Hcl 100 Mg Tablet) 100 mg PO DAILY [facility] Last Admin: 03/06/23 08:54 Dose: 100 mg Documented By: ELOISE Topiramate (Topiramate 100 Mg Tablet) 100 mg PO BID [facility] Last Admin: 03/06/23 08:53 Dose: 100 mg Documented By: ELOISE Labs 03/06/23 08:56 03/06/23 08:56 Labs: Laboratory Results - last 24 hr 03/05/23 03/06/23 22:30 08:56 MCV 90.2 MCH 30.1 MCHC 33.3 RDW 15.0 Plt Count 157 L MPV 11.6 Absolute Nucleated RBC 0.000 Nucleated RBC % (auto) 0.0 Anion Gap 11 L Estim Creat Clear Calc 91.3 Estimated GFR > 60 Random Glucose 116 H Calcium 8.3 L D Stl C. cayetanensis PCR Not Detected Stool Rotavirus A PCR Not Detected Stl Adenov F 40/41 PCR Not Detected Stool Astrovirus (PCR) Not Detected Stool Campylobacter PCR Not Detected Stool Cryptosporidium PCR Not Detected Stl Sh Tox Pr E STEC PCR Not Detected Stool E coli O157 PCR Not applicable Stl Enterotoxigenic E PCR Not Detected Stool EPEC (PCR) Not Detected Stool EAEC (PCR) Not Detected Stl E. histolytica PCR Not Detected Stool Giardia Lamblia PCR Not Detected Stl P. shigelloides PCR Not Detected Stool Salmonella PCR Not Detected Stool Sapovirus (PCR) Not Detected Stl Shigella/EIEC PCR Not Detected St Y.enterocolitica PCR Not Detected Stool Vibrio (PCR) Not Detected Stl Vibrio cholerae PCR Not Detected Stl Norovirus GI/GII PCR Not Detected Microbiology Microbiology Results: Microbiology 03/05/23 00:41 Urine Culture - Final Urine clean catch - Clean Catch Midstream 03/05/23 05:00 Blood Culture - Preliminary Blood - Venous No growth after 24 hours. 03/05/23 02:16 Blood Culture - Preliminary Blood - Venous No growth after 24 hours. Assessment and Plan (1) Seizure: Status: Acute (2) Ileus, unspecified: Status: Acute (3) Nausea and vomiting: Status: Acute Plan 62-year-old female with a PMH significant for?seizure disorder, HTN, HLD, and schizoafective disorder who presents to the ED for evaluation of nausea, vomiting, and loose stools for the past 1-2 days. Pt will be admitted to the hospital under observation for treatment and further evaluation of likely ileus. Pt will also need monitoring for continued seizure activity and ensuring she can tolerate p.o. fluids. Seizure disorder Noted to have witnessed seizures in the ED, no recurrent seizures since admission Tolerating by mouth Depakote and Topamax. Therapeutic level of Depakote. DC iv Keppra and placed on by mouth Keppra 500 b.i.d. recommend outpatient follow-up with primary Neurologist. Continue Seizure precautions Recommend out of bed to chair and ambulation [facility]charged [facility] once clinically stable. Ileus with possible gastroenteritis CT with contrast more suggestive of ileus than SBO Tolerating clear liquid will advance diet to regular /DC IV fluids Stool panel negative. Mild hypokalemia potassium 3.2 likely due to GI loss will replete and repeat labs Leukocytosis likely reactive versus due to gastroenteritis no sepsis WBC normalized Tachycardia likely secondary to seizure activity Lactic acidosis, resolved was likely due to seizure activity and gastroenteritis Full Code DVT Prophylaxis: Lovenox Patient will require continued inpatient hospitalization for management of ileus on clear liquid diet,/seizure disorder , need close neurological and and electrolyte monitoring Quality Stroke Does the patient have a stroke diagnosis?: No VTE Prior VTE?: No VTE Risk Level:: Medical - moderate - high VTE Device Contraindication: Treatment Not Indicated VTE Drug Contraindication: N/A - Med Ordered
[2023-03-06] MEDS: Potassium Chloride ER 20 MEQ TAB.ER.PRT PO (14:14)
[2023-03-06 15:09] VITALS: BP 132/59; PULSE 75; RESP 18; TEMP 36.2; O2SAT 97
[2023-03-06] MEDS: Enoxaparin Sodium 40 MG/0.4 ML SYRINGE SUBCUT (17:01)
[2023-03-06] MEDS: 0.9 % Sodium Chloride Flush 3 ML SYRINGE IVFLUSH ×2 (17:02→21:46)
[2023-03-06 19:13] VITALS: BP 130/60; PULSE 73; RESP 18; TEMP 36.5; O2SAT 96
[2023-03-06] MEDS: Atorvastatin Calcium 80 MG TABLET PO (21:40)
[2023-03-06] MEDS: levETIRAcetam 500 MG TABLET PO (21:41)
[2023-03-06] MEDS: OLANZapine 7.5 MG TABLET PO (21:41)
[2023-03-07 04:00] VITALS: BP 125/60; PULSE 75; RESP 16; TEMP 36.3; O2SAT 94
[2023-03-07 06:01] LABS: Anion Gap 12 (12-20); Blood Urea Nitrogen 4 mg/dL (9-16); Calcium 8.3 mg/dL (8.4-10.2); Carbon Dioxide 21 mmol/L (22-29); Chloride 114 mmol/L (96-108); Creatinine Clr Calc Pharmacy 99.6; Estimated Glomerular Filt Rate > 60; Glucose Random 111 mg/dL (60-115); Potassium 3.1 mmol/L (3.3-5.1); Sodium 144 mmol/L (135-145)
[2023-03-07 07:39] VITALS: BP 128/60; PULSE 66; RESP 16; TEMP 36.2; O2SAT 96
[2023-03-07] MEDS: 0.9 % Sodium Chloride Flush 3 ML SYRINGE IVFLUSH (09:03)
[2023-03-07] MEDS: LORazepam 0.5 MG TABLET 0.25 MG PO (09:04)
[2023-03-07] MEDS: levETIRAcetam 500 MG TABLET PO (09:05)
[2023-03-07] MEDS: Thiamine HCL 100 MG TABLET PO (09:05)
[2023-03-07] MEDS: Divalproex Sodium 500 MG TABLET.DR PO (09:05)
[2023-03-07] MEDS: Topiramate 100 MG TABLET PO (09:05)
[2023-03-07] MEDS: Potassium Chloride ER 20 MEQ TAB.ER.PRT 40 MEQ PO (09:05)
--- NOTE | 2023-03-07 11:41 | PM.DS ---
DS: Providers Provider Date of Service: 03/07/23 Date of admission: 03/06/23 10:15 Primary care physician: Shira Elliott MD DS: Diagnosis Discharge Diagnosis (1) Seizure: Status: Acute (2) Ileus, unspecified: Status: Acute (3) Nausea and vomiting: Status: Acute DS: Summary Hospital Course Hospital Course: History of presenting illness: Date of Service: 03/05/23 Attending physician on admission: Patsy Reyez Chief Complaint: Nausea vomiting, dizziness Pt is a 62-year-old female with a PMH significant for?seizure disorder, HTN, HLD, and schizoafective disorder who presents to the ED for evaluation of nausea, vomiting, and loose stools for the past 1-2 days. Patient is a resident of [facility] and is currently post-ictal after having a witnessed tonic-clonic seizure in the ED. Pt is alert and oriented x3, but unaware of why she is in the hospital and what symptoms she had yesterday. Currently denies any acute medical complaints and says she feels alright . HPI taken primarily from chart and provider review. Yesterday patient claimed she felt ?unwell , with dizziness, nausea, vomiting, and multiple loose stools. Denies any enedelia abdominal pain. She also apparently had one or more seizures yesterday at her residence.?In the ED CT of abd and pelvis concerned for possible SBO, but repeat with contrast more suggestive of ileus with possible gastroenteritis. General surgery was consulted, who discussed with the patient and if she could tolerate oral intake she was stable for discharge from a surgical standpoint, however patient then was witnessed to have a seizure when water was brought to her for oral intake trial. It was then suggested to admit the pt for monitoring and ensuring she could tolerate oral fluids to take her medications. In the ED pt with slightly elevated temperature of 99.0, tacycardia up to 111, hypertension up to 192/93. Labs were significant for leukocytosis of 14.1, lactic acid 2.2 with repeat 1.1. Electrolytes largely WNL. Renal function baseline. Hepatic function baseline. Valproic acid levels therapeutic. UA likely negative for UTI. CT of abdomen and pelvis w/ contrast with prominent mildly dilated proximal to mid small bowel loops, findings possibly related to enteritis ileus versus early/developing small-bowel obstruction. Repeat CT of abdomen and pelvis wo contrast redemonstrated persistently dilated small bowel loops without definite zone of transition identified. Also felt potential 7 mm bladder wall lesion, suggest urologic follow-up. EKG demonstrated normal sinus rhythm without evidence of ST elevations or depressions. Pt was treated with IVF, ondansetron, cefepime, Ativan, and Keppra. Pt will be admitted to the hospital under observation for treatment and further evaluation of likely ileus with gastroenteritis, as well as ensuring patient can tolerate p.o. fluids. hospital course: 62-year-old female with a PMH significant for?seizure disorder, HTN, HLD, and schizoafective disorder who presents to the ED for evaluation of nausea, vomiting, and loose stools for the past 1-2 days Patient admitted to hospital for further evaluation of ileus/gastritis and breakthrough seizures. Seizure disorder patient noted to have witnessed seizure in the ED patient treated with intravenous Keppra, and was continued on home dose of Depakote and Topamax patient Depakote level is therapeutic patient had no recurrent seizures during hospitalization, therefore being discharged on home medications and recommend close outpatient follow-up with Neurology, likely breakthrough seizure due to viral gastroenteritis and inability to take by mouth medications, recommend seizure precautions, no driving or tub baths Ileus with possible gastroenteritis,CT abdomen with contrast more suggestive of ileus than SBO, patient diet was gradually advanced currently she is tolerating regular diet with no recurrent bout of nausea vomiting or diarrhea stool panel is negative. Mild hypokalemia repleted. Leukocytosis likely reactive versus due to gastroenteritis no sepsis, WBC normalized Lactic acidosis, resolved was likely due to seizure activity and gastroenteritis Time Attestation Discharge coordination time: Greater than 30 minutes Quality: Safe Use of Opioids Does Pt have an Active Cancer Diagnosis on the Problem List?: No Quality: Stroke Does the patient have a stroke diagnosis?: No Physical Exam Vital Signs: Vital Signs: Last Vital Signs Temp 97.2 F 03/07/23 07:39 Pulse 66 03/07/23 07:39 Resp 16 03/07/23 07:39 BP 128/60 03/07/23 07:39 Pulse Ox 96 03/07/23 07:39 O2 Del Method Room Air 03/07/23 07:39 BMI result Body Mass Index 36.5 Const: Other: General awake alert, resting comfortably in no acute distress. Neck no JVD. CVS regular rate rhythm, Respiratory lungs clear to auscultation, no respiratory distress, no wheeze, no rhonchi. Gastrointestinal abdomen soft, non tender, bowel sounds audible, no guarding , no rigidity. Extremities no edema. Neuro nonfocal Skin no rash Psych appropriate affect DS: Data Data Completed and Pending Labs on day of discharge: Laboratory Results - last 24 hr 03/07/23 05:28 Hold Purple Top SEE NOTE Sodium 144 Potassium 3.1 L Chloride 114 H Carbon Dioxide 21 L Anion Gap 12 BUN 4 L Creatinine 0.66 Estim Creat Clear Calc 99.6 Estimated GFR > 60 Random Glucose 111 Calcium 8.3 L Preliminary micro results at discharge 03/05/23 05:00 Blood Culture - Preliminary Blood - Venous No growth after 48 hours. 03/05/23 02:16 Blood Culture - Preliminary Blood - Venous No growth after 48 hours. Discharge Plan Discharge Anticipated Discharge Date/Time: 03/07/23 11:35 Patient Disposition: Home, Self-Care Discharge Diagnosis: Ileus/gastroenteritis Breakthrough seizure Lactic acidosis Referrals: kelly lindsay [Other] - 1 Week Shira Elliott MD [Primary Care Provider] - 1 Week Discharge Medications: Continued acetaminophen 325 mg Tablet 650 mg PO Q4H PRN (Reason: Fever Or Pain) lorazepam 0.5 mg Tablet 0.25 mg PO BID alum-mag hydroxide-simeth 200-200-20 mg/5 mL Suspension 30 ml PO Q4H PRN (Reason: Abdominal Discomfort) ibuprofen 600 mg Tablet 600 mg PO Q6H PRN (Reason: Pain) topiramate 100 mg tablet 100 mg PO BID rosuvastatin 20 mg Tablet 20 mg PO BEDTIME sennosides [senna] 8.6 mg Tablet 17.2 mg PO DAILY PRN (Reason: Constipation) thiamine HCl (vitamin B1) 100 mg tablet 100 mg PO DAILY levocarnitine 330 mg tablet 990 mg PO BID olanzapine 7.5 mg tablet 7.5 mg PO BEDTIME ketoconazole 2 % cream 1 appl topical BID divalproex 500 mg tablet,delayed release (DR/EC) 500 mg PO BID Discharge Orders: Discharge Order (Routine); Ordered 03/07/23 Ordered By: Patsy Reyez Diet: Low fat, low cholesterol Activity on Discharge: As tolerated Stand Alone Forms: Patient Portal Discharge page Care Plan Goals: Ileus/gastroenteritis resolved tolerating diet Breakthrough seizures continue home medications and outpatient follow-up with Neurology Incidental finding on CT abdomen and pelvis showed 7 mm bladder wall lesion recommend outpatient urology follow up,and cholelithiasis Health Concerns: Continue all home medications Plan of Treatment: Follow-up with primary care physician and Neurology call for appointment. Assessment: As above
[2023-03-07 12:08] LABS: Anion Gap 14 (12-20); Blood Urea Nitrogen 4 mg/dL (9-16); Calcium 8.2 mg/dL (8.4-10.2); Carbon Dioxide 18 mmol/L (22-29); Chloride 115 mmol/L (96-108); Creatinine Clr Calc Pharmacy 99.6; Estimated Glomerular Filt Rate > 60; Glucose Random 126 mg/dL (60-115); Sodium 143 mmol/L (135-145)
[2023-03-07 15:15] VITALS: BP 128/59; PULSE 77; RESP 18; TEMP 36.7; O2SAT 98
--- NOTE | 2023-03-08 11:54 | P.CDIM_ITS ---
PROVIDER RESPONSE TEXT: To clarify, the appropriate diagnosis supported by the clinical indicators: Acute QUERY TEXT: PHYSICIAN'S DOCUMENTATION REQUEST Date of Query: 03/07/2023 09:00 AM EST Patient Name: Anastasia Boudreaux Admit Date: 03/06/2023 Dear Patsy Reyez, A review of the medical record indicates additional documentation may be needed. Please review below and update the documentation accordingly. Clinical Indicators: Progress note - Assessment and plan: lactic acidosis, resolved was likely due to seizure activity and gastroenteritis. LA 2.2 Clarify which of the following accurately represents the acuity of the lactic acidosis: Acute Acute on chronic Other (explain) Clinically unable to determine (explain) Thank you, Amna Unger, CCS, CDIS Use of terms such as suspected, likely, concern for, or probable (associated with a specific diagnosi s that is being evaluated, monitored, or treated as if it exists) are acceptable and can be coded in the inpatient se tting, when documented at the time of discharge. Please use your independent medical judgment in providing your response. THIS QUERY IS PART OF THE PERMANENT MEDICAL RECORD
== END 2023-03-07 16:08 | disposition home or self-care (01) | DRG 53 ==
LOC: HO.ED 03-05 12:58 → HO.EDOVER 03-05 15:29 → HO.S3 03-05 17:14
PROVIDERS: Student in an Organized Health Care Education/Training Program; Admitting Provider Student in an Organized Health Care Education/Training Program; Emergency Provider Emergency Medicine Emergency Medical Services; PCP Internal Medicine; Visit Provider Hospitalist
DX: G40.909 Epilepsy, unspecified, not intractable, without status epilepticus (principal); E87.21 Acute metabolic acidosis; K56.7 Ileus, unspecified; A08.4 Viral intestinal infection, unspecified; E87.6 Hypokalemia; N32.9 Bladder disorder, unspecified; Z20.822 Contact with and (suspected) exposure to COVID-19; Z87.891 Personal history of nicotine dependence; Z79.899 Other long term (current) drug therapy
CPT/HCPCS: 36415; 74176; 74177; 80048; 80053; 80164; 81001; 83605; 85025; 85027; 87040; 87086; 87507; 87635; 93005; 99285; J0692; J1650; J1953; J2060; J2405; J7120; Q9967

== ENCOUNTER → 2023-03-04 22:50 | Outpatient (BNV) | payer OTHER, SELFPAY | PROVIDERS: Emergency Provider Emergency Medicine Emergency Medical Services; Visit Provider Physician Assistant Surgical | DX: K56.7 Ileus, unspecified (principal); R56.9 Unspecified convulsions | CPT/HCPCS: 99222 ==

== ENCOUNTER → 2023-03-04 23:49 | Outpatient (BNV) | payer OTHER, SELFPAY | PROVIDERS: Admitting Provider Student in an Organized Health Care Education/Training Program; Emergency Provider Emergency Medicine Emergency Medical Services; Visit Provider Internal Medicine | DX: R11.2 Nausea with vomiting, unspecified (principal) | CPT/HCPCS: 93010 ==

== ENCOUNTER → 2023-03-06 10:15 | Outpatient (BNV) | payer OTHER, SELFPAY | PROVIDERS: Admitting Provider Student in an Organized Health Care Education/Training Program; Emergency Provider Emergency Medicine Emergency Medical Services; PCP Internal Medicine; Visit Provider Hospitalist | DX: R56.9 Unspecified convulsions (principal); K56.7 Ileus, unspecified; R11.2 Nausea with vomiting, unspecified | CPT/HCPCS: 99222; 99233; 99239 ==

== ENCOUNTER 2023-04-19 19:31 | Emergency (ER) | payer OTHER, SELFPAY ==
--- NOTE | ~2023-04-19 | CT_ITS ---
EXAMINATION: CT HEAD WITHOUT CONTRAST CT FACIAL BONES WITHOUT CONTRAST CT CERVICAL SPINE WITHOUT CONTRAST CLINICAL INFORMATION: Fall with facial injuries. Altered mental status. COMPARISON: CT scan of the head and cervical spine 03/01/2023. TECHNIQUE: Multidetector CT imaging of the head, facial bones and cervical spine was performed without the use of intravenous contrast. Coronal and sagittal reformatted images were generated at the technologist workstation. This CT examination was performed using dose optimization techniques as appropriate, variously including the following: *Automated exposure control *Adjustment of mA and/or kV according to patient size (this includes techniques or standardized protocols for targeted exams where dose is matched to indication/reason for exam; i.e. extremities or head) *Use of iterative reconstruction technique DLP: 1632 mGy-cm. FINDINGS: CT head: There is no evidence of acute intracranial hemorrhage or territorial infarction; the previously described area of low-attenuation in the left cerebellar hemisphere is not appreciated on this study. No abnormal mass-effect or midline shift is seen. Garcia to white matter differentiation is well preserved. No extra-axial fluid collections are identified. There is commensurate prominence of the ventricles and sulci consistent with diffuse volume loss. The study redemonstrates areas of low-attenuation in the periventricular and subcortical white matter, most consistent with chronic microvascular ischemic changes. The study redemonstrates a scar in the right parietal scalp. There has been a right lens extraction. There are no acute soft tissue abnormalities. There are no acute osseous findings. The frontal sinuses are hypoplastic. The bilateral sphenoid sinuses have mild mucoperiosteal thickening. The mastoid air cells and other paranasal sinuses are well-aerated. There is extensive caries in the visualized maxilla and there are multiple periapical lucencies bilaterally. CT facial bones: Some images are degraded by patient motion artifact. There is no acute maxillofacial fracture. The mandible and mandibular condyles are intact. The pterygoid plates, the zygomatic arches and the lamina papyracea are intact. The bony orbital rims are intact. The nasal bones are intact. The malar soft tissues are unremarkable. As described above there is mild mucoperiosteal thickening in the sphenoid sinuses. The nasal septum is deviated to the left and there is a prominent left-sided bony nasal septal spur. The ostiomeatal complexes are patent bilaterally. The ethmoid roofs are symmetric. There is extensive caries in the bilateral mandible and maxilla with periapical lucencies. The temporomandibular joints are unremarkable. There has been a right lens extraction. CT cervical spine: There is a mild levoscoliosis. On the sagittal images there is straightening of the normal cervical lordosis. There is multilevel narrowing of intervertebral disc height which is most severe at C5-C6 and C6-C7. Vertebral body heights are maintained, and no fractures are demonstrated. The lateral masses of C1 and C2 are normally aligned and the dens is intact. The atlantoaxial and atlantooccipital joints are maintained. There is multilevel facet arthropathy. The prevertebral soft tissues are unremarkable. The thyroid gland is normal in size. There are emphysematous changes in the upper lung higgins. There are small multilevel lymph nodes, unchanged. CT/CT cervical spine wo IV con IMPRESSION: CT Head: 1. There are no acute bleeds or territorial infarcts. No masses are demonstrated. 2. There is diffuse volume loss and there are chronic microvascular ischemic changes. CT Maxillofacial: 1. There are no acute fractures or subluxations. The soft tissues are unremarkable. 2. The nasal septum is deviated to the left and there is a prominent left-sided bony nasal septal spur. CT Cervical Spine: 1. There are no acute fractures or subluxations. 2. There are multilevel spondylitic and facet arthropathic changes.
[2023-04-19 19:46] VITALS: BP 148/96; BP 150/100; PULSE 98; PULSE 99; RESP 16; TEMP 36.6; O2SAT 100; O2SAT 99; BMI 35.9
[2023-04-19 19:47] LABS: Glucose, Whole Blood 175 mg/dL (60-115)
[2023-04-19 19:58] VITALS: BP 179/77; PULSE 90; RESP 17; TEMP 36.5; O2SAT 97
[2023-04-19 20:41] LABS: MANUAL DIFF FLAG NO
[2023-04-19 20:42] LABS: Basophils Percent Auto 0.3 % (0-2); Eosinophils Absolute Auto 0.1 X10*3/uL (0.0-0.4); Eosinophils Percent Auto 0.9 % (0-4); Hematocrit 39.6 % (37.0-47.0); Hemoglobin 13.2 g/dl (12.0-16.0); Imm Gran Abs Auto 0.04 X10*3/uL (0.00-0.03); Imm Gran Pct Auto 0.4 % (0.0-0.4); Lymphocytes Absolute Auto 1.9 X10*3/uL (1.2-4.9); Lymphocytes Percent Auto 20.2 % (20-40); Mean Corpuscular HGB Conc 33.3 g/dl (31.0-35.0); Mean Corpuscular Hemoglobin 30.3 pg (27.0-33.0); Mean Corpuscular Volume 90.8 fL (80.0-98.0); Mean Platelet Volume 11.3 fL (9.4-12.3); Monocytes Absolute Auto 0.6 X10*3/uL (0.1-1.2); Monocytes Percent Auto 6.9 % (2-11); Neutrophils Absolute Auto 6.6 x10*3/uL (2.0-8.3); Neutrophils Percent Auto 71.3 % (45-73); Platelet Count 163 X10*3/uL (160-400); Red Blood Count 4.36 X10*6/uL (4.20-5.50); Red Cell Distribution Width 14.1 % (11.0-16.0); White Blood Count 9.3 X10*3/uL (4.8-10.8)
[2023-04-19 20:56] LABS: Valproate 69.2 mcg/mL (50.0-100.0)
[2023-04-19 20:59] LABS: Alanine Aminotransferase 11 U/L (0-31); Alkaline Phosphatase 129 U/L (39-117); Anion Gap 16 (12-20); Aspartate Amino Transferase 18 U/L (5-31); Bilirubin Direct < 0.2 mg/dL (0.0-0.5); Bilirubin Total 0.1 mg/dL (0.0-1.0); Blood Urea Nitrogen 9 mg/dL (9-16); Calcium 9.3 mg/dL (8.4-10.2); Carbon Dioxide 23 mmol/L (22-29); Chloride 106 mmol/L (96-108); Creatinine Clr Calc Pharmacy 82.5; Estimated Glomerular Filt Rate > 60; Glucose Random 179 mg/dL (60-115); Potassium 3.8 mmol/L (3.3-5.1); Sodium 141 mmol/L (135-145); Total Protein 7.7 g/dL (6.5-8.0)
--- NOTE | 2023-04-19 22:24 | ED_ITS ---
HPI - General Adult General Chief complaint: Fall Stated complaint: Fall, poss post seizure, gash on nose Time Seen by Provider: 04/19/23 19:36 History of Present Illness HPI narrative: Patient is a 62-year-old female with a history of a seizure disorder who lives at a local rest home. Apparently she had a fall today and injured her face. The patient does not really seem to have any recollection of the episode. She is complaining of neck pain. Related Data Home Medications Medication Instructions Recorded Confirmed acetaminophen 325 mg tablet 650 mg PO Q4H PRN Fever Or Pain 08/27/20 03/05/23 aluminum-mag hydroxide-simethicone 30 ml PO Q4H PRN Abdominal 08/27/20 03/05/23 200 mg-200 mg-20 mg/5 mL oral susp Discomfort ibuprofen 600 mg tablet 600 mg PO Q6H PRN Pain 08/27/20 03/05/23 lorazepam 0.5 mg tablet 0.25 mg PO BID 08/27/20 03/05/23 rosuvastatin 20 mg tablet 20 mg PO BEDTIME 08/27/20 03/05/23 topiramate 100 mg tablet 100 mg PO BID 08/27/20 03/05/23 ketoconazole 2 % topical cream 1 appl topical BID 12/10/22 03/05/23 levocarnitine 330 mg tablet 990 mg PO BID 12/10/22 03/05/23 olanzapine 7.5 mg tablet 7.5 mg PO BEDTIME 12/10/22 03/05/23 sennosides 8.6 mg tablet (senna) 17.2 mg PO DAILY PRN Constipation 12/10/22 03/05/23 thiamine HCl (vitamin B1) 100 mg 100 mg PO DAILY 12/10/22 03/05/23 tablet divalproex 500 mg tablet,delayed 500 mg PO BID 03/05/23 03/05/23 release Allergies Allergy/AdvReac Type Severity Reaction Status Date / Time Penicillins Allergy Unknown Verified 12/15/20 10:23 Review of Systems 2 Review of Systems: Yes all other systems are reviewed and are negative [facility] Past Medical History Medical History HLD (hyperlipidemia) Seizure disorder HTN (hypertension) Schizoaffective disorder, depressive type Epilepsy Surgical History History of hysterectomy Social History Social History Household Members: Other Household Members Other:: [facility] Unable to assess alcohol history related to: Unknown Alcohol intake: never Patient Tobacco Use Status: Former Tobacco user Smoked in Last 30 Days: No Use of substances other than those prescribed or required for medical reasons: No Advance Directives: Yes Advance Directives on File: Yes Advance Directives Date on File: 08/30/20 Patient : No service: No Current occupational status: disabled Current occupation: rt handed Physical Exam ED Vital Signs: Vital Signs - 24 hr 04/19/23 19:46 04/19/23 19:58 Temperature 98 F 97.7 F Pulse Rate 98 90 Respiratory Rate 16 17 Blood Pressure 148/96 H 179/77 H Pulse Oximetry 99 97 Oxygen Delivery Method Room Air Room Air BMI result Body Mass Index 35.9 Const Other: The patient is a chronically ill-appearing 62-year-old. She is in a cervical collar. She has blood on her face. She is awake and alert. She does not seem in acute distress. HENMT Other: The patient has an abrasion in the middle of her nose. She has an abrasion in the middle of her forehead. There is dried blood on the face. Eyes Other: Pupils are round equal, conjunctivae are clear, extraocular movements intact Neck Other: There is some diffuse posterior C-spine tenderness. No focal tenderness Resp Effort & Inspection: normal respiratory effort Auscultation: clear to auscultation bilaterally Cardio Rate: regular rate Rhythm: regular rhythm Heart sounds: S1 normal heart sound present and S2 normal heart sound present GI Other: Abdomen is soft and nontender Skin Other: There is an abrasion to the middle of the nose and the forehead. No full- thickness laceration. Neuro Other: The patient is awake and alert. Face is symmetrical. Speech is clear. She moves her extremities symmetrically. Extrem Other: No sign of injury to the upper or lower extremities Medications Administered Discontinued Medications Generic Name Dose Route Start Last Admin Trade Name Freq PRN Reason Stop Dose Admin Acetaminophen 975 mg 04/19/23 22:56 04/19/23 23:01 Acetaminophen 325 Mg Tablet PO 04/19/23 22:57 975 mg ONCE ONE Administration Ibuprofen 600 mg 04/19/23 22:56 04/19/23 23:01 Ibuprofen 600 Mg Tablet PO 04/19/23 22:57 600 mg ONCE ONE Administration Medical Decision Making Medical Decision Making [facility] Narrative: The patient is a 62-year-old male who lives at a local rest home. She is on Depakote because of a history of a possible seizure disorder. She is also on topiramate. She had a fall today. It is not clear whether this was associated with a seizure or not. The patient seems to have some mild cognitive impairment which may impair her ability to give a history but otherwise she seems to have a GCS of 15. Head CT, facial bone CT, and cervical spine CT are negative for acute injuries. The blood on the face was cleaned. She has a abrasions but no lacerations. Abrasion dressed with bacitracin and a Band-Aid. The patient's Depakote level is therapeutic. A topiramate level has been sent. EKG is unremarkable. I think she may return to her rest home to continue her usual medications and to follow up with her regular doctors. I believe she sees a neurologist in [place] for her possible seizure disorder. Lab Data 04/19/23 20:37 04/19/23 20:37 Labs: Lab Results 04/19/23 04/19/23 Range/Units 19:43 20:37 WBC 9.3 (4.8-10.8) X10*3/uL RBC 4.36 (4.20-5.50) X10*6/uL Hgb 13.2 (12.0-16.0) g/dl Hct 39.6 (37.0-47.0) % MCV 90.8 (80.0-98.0) fL MCH 30.3 (27.0-33.0) pg MCHC 33.3 (31.0-35.0) g/dl RDW 14.1 (11.0-16.0) % Plt Count 163 (160-400) X10*3/uL MPV 11.3 (9.4-12.3) fL Immature Gran % (Auto) 0.4 (0.0-0.4) % Neut % (Auto) 71.3 (45-73) % Lymph % (Auto) 20.2 (20-40) % Otoe % (Auto) 6.9 (2-11) % Eos % (Auto) 0.9 (0-4) % Baso % (Auto) 0.3 (0-2) % Lymph # (Auto) 1.9 (1.2-4.9) X10*3/uL [place] # (Auto) 0.6 (0.1-1.2) X10*3/uL Eos # (Auto) 0.1 (0.0-0.4) X10*3/uL Baso # (Auto) 0.0 (0.0-0.2) X10*3/uL Abs Immat Gran (auto) 0.04 H (0.00-0.03) X10*3/uL Absolute Neuts (auto) 6.6 (2.0-8.3) x10*3/uL Absolute Nucleated RBC 0.000 (0.0-0.012) X10*3/uL Nucleated RBC % (auto) 0.0 (0.0-0.2) /100WBC Sodium 141 (135-145) mmol/L Potassium 3.8 (3.3-5.1) mmol/L Chloride 106 (96-108) mmol/L Carbon Dioxide 23 (22-29) mmol/L Anion Gap 16 (12-20) BUN 9 (9-16) mg/dL Creatinine 0.79 (0.5-1.4) mg/dL Estim Creat Clear Calc 82.5 Estimated GFR > 60 POC Glucose 175 H (60-115) mg/dL Random Glucose 179 H (60-115) mg/dL Calcium 9.3 D (8.4-10.2) mg/dL Magnesium 2.0 (1.6-2.6) mg/dL Total Bilirubin 0.1 (0.0-1.0) mg/dL Direct Bilirubin < 0.2 (0.0-0.5) mg/dL AST 18 (5-31) U/L ALT 11 (0-31) U/L Alkaline Phosphatase 129 H (39-117) U/L Total Protein 7.7 (6.5-8.0) g/dL Albumin 4.0 (3.5-5.0) g/dL Hold Yellow Top See Note Valproic Acid 69.2 (50.0-100.0) mcg/mL Independent Interpretation I performed an independent interpretation of an: EKG Interpretation: Sinus rhythm at 74 beats per minute. Unremarkable EKG. Discharge Plan Discharge Clinical Impression: Fall, Facial injury Patient Disposition: Home, Self-Care Additional Instructions: CT scan of the head, facial bones, and neck are all negative for fractures. Please continue regular medications. Please follow-up with your regular providers. Return to the emergency room if worse. Prescriptions: No Action acetaminophen 325 mg Tablet 650 mg PO Q4H PRN (Reason: Fever Or Pain) lorazepam 0.5 mg Tablet 0.25 mg PO BID alum-mag hydroxide-simeth 200-200-20 mg/5 mL Suspension 30 ml PO Q4H PRN (Reason: Abdominal Discomfort) ibuprofen 600 mg Tablet 600 mg PO Q6H PRN (Reason: Pain) topiramate 100 mg tablet 100 mg PO BID rosuvastatin 20 mg Tablet 20 mg PO BEDTIME sennosides [senna] 8.6 mg Tablet 17.2 mg PO DAILY PRN (Reason: Constipation) thiamine HCl (vitamin B1) 100 mg tablet 100 mg PO DAILY levocarnitine 330 mg tablet 990 mg PO BID olanzapine 7.5 mg tablet 7.5 mg PO BEDTIME ketoconazole 2 % cream 1 appl topical BID divalproex 500 mg tablet,delayed release (DR/EC) 500 mg PO BID Referrals: Shira Elliott MD [Primary Care Provider] - (Fall with facial injuries, seizure disorder)
--- NOTE | 2023-04-19 22:25 | ECG_ITS ---
Test Reason : FALL Blood Pressure : / mmHG Vent. Rate : 074 BPM Atrial Rate : 074 BPM P-R Int : 152 ms QRS Dur : 098 ms QT Int : 412 ms P-R-T Axes : 050 -04 023 degrees QTc Int : 457 ms Normal sinus rhythm Normal ECG When compared with ECG of 05-MAR-2023 00:06, No significant change was found Referred By: Espinoza Singh Electronically Signed By:ELVIA CUBA
[2023-04-19] MEDS: Acetaminophen 325 MG TABLET 975 MG PO (23:01)
[2023-04-19] MEDS: Ibuprofen 600 MG TABLET PO (23:01)
[2023-04-20] MEDS: Bacitracin Oint 0.9 GM PACKET 2 APPL TOPICAL (01:55)
[2023-04-20 01:56] VITALS: BP 113/66; PULSE 68; RESP 16; TEMP 36.6; O2SAT 99
[2023-04-23 13:03] LABS: Topiramate 6.8 mcg/mL (see note)
== END 2023-04-20 03:10 | disposition home or self-care (01) ==
PROVIDERS: Emergency Provider Emergency Medicine; PCP Internal Medicine
DX: S00.31XA Abrasion of nose, initial encounter (principal); S00.81XA Abrasion of other part of head, initial encounter; W18.39XA Other fall on same level, initial encounter; M54.2 Cervicalgia; Y93.9 Activity, unspecified; Y92.129 Unspecified place in nursing home as the place of occurrence of the external cause; Y99.9 Unspecified external cause status; I10 Essential (primary) hypertension; E78.5 Hyperlipidemia, unspecified; G40.909 Epilepsy, unspecified, not intractable, without status epilepticus; Z79.899 Other long term (current) drug therapy
CPT/HCPCS: 36415; 70450; 70486; 72125; 80048; 80076; 80164; 80201; 82947; 83735; 85025; 93005; 99285

== ENCOUNTER → 2023-04-19 22:25 | Outpatient (BNV) | payer OTHER, SELFPAY | PROVIDERS: Emergency Provider Emergency Medicine; PCP Internal Medicine; Visit Provider Internal Medicine | DX: Z91.81 History of falling (principal) | CPT/HCPCS: 93010 ==